=== PATIENT | female | born 1930 | race Caucasian/White ===

== ENCOUNTER 2017-07-16 16:26 | Inpatient (IN) | payer MEDICARE ==
[~2017-07-16] VITALS: Ht 167.6 cm; Wt 66.7 kg
[~2017-07-16 16:26] MED LIST: ACET325T9 PO; ACET500T68 PO; ALBU2.5V14 NEB; ALPR0.254 PO; ALPR0.5T6 PO; AMLO10TA2 PO; BISA10SU55 RC; BUSP10TA PO; CHOL10003 PO; DIVA125C PO; DOCU100C28 PO; LORA0.5T96 PO; LORA2VIA4 IM; MAG30ORA2 PO; MAGN400O7 PO; METH29OI TP; POTA10TA10 PO; QUET25TA5 PO; RIVA1PAT23 TD; TRAM50TA PO
--- NOTE | 2017-07-16 17:12 | ED.ADGEN ---
Past History Past Medical History: Anxiety, Dementia, Hypertension, Other (HUANG PICHARDO DO) Past Surgical History: No Surgical History (HUANG PICHARDO DO) Alcohol Use: None Drug Use: None (HUANG PICHARDO DO) Adult General Chief Complaint Chief Complaint Medical screening for psychiatric admission (HUANG PICHARDO DO) HPI HPI Patient is a 87-year-old [facility] patient with history of dementia and anxiety who presents for medical screening for psychiatric admission. Patient reportedly has had increased agitation towards staff members and residence has been uncooperative. patient's alert and oriented to person but is otherwise confused. She is a poor historian. Of note, patient does have bruising to her extremities and torso. I asked patient if she hit her head if she has headache or neck pain, which she denies. It is doubtful that the patient's answers are accurate. Patient denies any chest pain shortness of breath, cough. Denies any pain complaint. History is limited due to heightened agitation of the patient prior to ED arrival.[] (HUANG PICHARDO DO) Review of Systems Review of Systems View of systems unable to obtain secondary to presentation] All other systems were reviewed and found to be within normal limits, except as documented in this note. (HUANG PICHARDO DO) Current Medications Current Medications Current Medications Medications (Trade) Dose Ordered Sig/Analia Start Time Stop Time Status Last Admin Dose Admin Haloperidol Lactate (Haldol) 5 mg 1X ONCE 07/16/17 18:00 07/16/17 18:10 DC 07/16/17 18:00 5 MG (DINA LOYA DO) Allergies Allergies Allergies Coded Allergies Type Severity Reaction Last Updated Verified amoxicillin Allergy Intermediate 04/27/15 Yes (DINA LOYA DO) Physical Exam Physical Exam Constitutional: Well developed, well nourished, agitated. [] HENT: Normocephalic, atraumatic, bilateral external ears normal, oropharynx mucous membranes, no oral exudates, nose normal. [] Eyes: PERRLA, EOMI. [] Neck: Normal range of motion, no tenderness. [] Cardiovascular:Heart rate regular rhythm, no murmur [] Lungs & Thorax: Bilateral breath sounds clear to auscultation [] Abdomen: Bowel sounds normal, soft, no tenderness, no masses, no pulsatile masses. [] Skin: Warm, dry, no erythema, no rash. [] Back: No tenderness, no CVA tenderness. [] Extremities: no gross deformities. active range of motion through major joints without limitation due to pain [] Neurologic: Alert and oriented X 1, nerves II through XII grossly intact, no focal extremity weakness loss of sensation. Operation on exam. [] Psychologic: Affect, anxious[] (HUANG PICHARDO DO) Current Patient Data Vital Signs Vital Signs Date Time Temp Pulse Resp B/P (MAP) Pulse Ox O2 Delivery O2 Flow Rate FiO2 07/16/17 18:25 90 18 129/66 (87) 98 Room Air 07/16/17 17:25 98.0 (DINA LOYA DO) Lab Results Laboratory Tests Test 07/16/17 16:25 07/16/17 17:30 Urine Collection Type U cath Urine Color Straw Urine Clarity Hazy Urine pH 8.0 Urine Specific [place] 1.015 Urine Protein Neg (NEG-TRACE) Urine Glucose (UA) Neg mg/dL (NEG) Urine Ketones (Stick) Neg mg/dL (NEG) Urine Blood Neg (NEG) Urine Nitrite Neg (NEG) Urine Bilirubin Neg (NEG) Urine Urobilinogen Dipstick 1 mg/dL (0.2 mg/dL) Urine Leukocyte Esterase Neg (NEG) Urine RBC 1-2 /HPF (0-2) Urine WBC Occ /HPF (0-4) Urine Squamous Epithelial Cells Few /LPF Urine Amorphous Sediment Present /HPF Urine Bacteria 0 /HPF (0-FEW) White Blood Count 6.0 x10^3/uL (4.0-11.0) Red Blood Count 4.52 x10^6/uL (3.50-5.40) Hemoglobin 13.3 g/dL (12.0-15.5) Hematocrit 39.3 % (36.0-47.0) Mean Corpuscular Volume 87 fL (79-100) Mean Corpuscular Hemoglobin 29 pg (25-35) Mean Corpuscular Hemoglobin Concent 34 g/dL (31-37) Red Cell Distribution Width 14.1 % (11.5-14.5) Platelet Count 174 x10^3/uL (140-400) Neutrophils (%) (Auto) 54 % (31-73) Lymphocytes (%) (Auto) 31 % (24-48) Monocytes (%) (Auto) 11 % (0-9) H Eosinophils (%) (Auto) 3 % (0-3) Basophils (%) (Auto) 1 % (0-3) Neutrophils # (Auto) 3.2 x10^3uL (1.8-7.7) Lymphocytes # (Auto) 1.9 x10^3/uL (1.0-4.8) Monocytes # (Auto) 0.7 x10^3/uL (0.0-1.1) Eosinophils # (Auto) 0.2 x10^3/uL (0.0-0.7) Basophils # (Auto) 0.0 x10^3/uL (0.0-0.2) Sodium Level 142 mmol/L (136-145) Potassium Level 3.7 mmol/L (3.5-5.1) Chloride Level 110 mmol/L (98-107) H Carbon Dioxide Level 19 mmol/L (21-32) L Anion Gap 13 (6-14) Blood Urea Nitrogen 28 mg/dL (7-20) H Creatinine 1.6 mg/dL (0.6-1.0) H Estimated GFR (Cockcroft-Gault) 30.6 BUN/Creatinine Ratio 18 (6-20) Glucose Level 106 mg/dL (70-99) H Calcium Level 8.8 mg/dL (8.5-10.1) Total Bilirubin 0.3 mg/dL (0.2-1.0) Aspartate Amino Transferase (AST) 16 U/L (15-37) Alanine Aminotransferase (ALT) 30 U/L (14-59) Alkaline Phosphatase 93 U/L (46-116) Total Protein 6.7 g/dL (6.4-8.2) Albumin 2.9 g/dL (3.4-5.0) L Albumin/Globulin Ratio 0.8 (1.0-1.7) L (DINA LYOA DO) Lab Results Laboratory Tests Test 07/16/17 16:25 Urine Collection Type U cath Urine Color Straw Urine Clarity Hazy Urine pH 8.0 Urine Specific [place] 1.015 Urine Protein Neg (NEG-TRACE) Urine Glucose (UA) Neg mg/dL (NEG) Urine Ketones (Stick) Neg mg/dL (NEG) Urine Blood Neg (NEG) Urine Nitrite Neg (NEG) Urine Bilirubin Neg (NEG) Urine Urobilinogen Dipstick 1 mg/dL (0.2 mg/dL) Urine Leukocyte Esterase Neg (NEG) Urine RBC 1-2 /HPF (0-2) Urine WBC Occ /HPF (0-4) Urine Squamous Epithelial Cells Few /LPF Urine Amorphous Sediment Present /HPF Urine Bacteria 0 /HPF (0-FEW) (HUANG PICHARDO DO) EKG EKG EKG: Normal sinus, rate 60, QTC 436. ST depressions in with T-wave inversions in leads V3 through V6. No reciprocal changes. Interpretation by this physician. [] (HUANG PICHARDO DO) Radiology/Procedures Radiology/Procedures CT head: Pending[] (HUANG PICHARDO DO) Radiology/Procedures Chest x-ray NAD CT scan of the head no intracranial hemorrhage (DINA LOYA DO) Course & Med Decision Making Course & Med Decision Making Pertinent Labs and Imaging studies reviewed. (See chart for details) [Workup in progress. Care endorsed to [facility] at 1804 disposition and] (HUANG PICHARDO DO) Course & Med Decision Making ED course: Patient was initially seen by Dr. Pichardo in which basic blood work was ordered for [facility] medical clearance Patient is extremely combative and altered requiring Haldol in order to obtain a CT scan of the head to rule out any intracranial bleed On reevaluation the patient is resting calmly in the bed and after reviewing the blood work and CT scan of the head I believe the patient is cleared for [facility]. MDM: After reviewing the chart, CC/HPI/PMH, physical exam, [lab results], [ radiological results], I do not believe the patient has emergent medical condition warranting further workup and/or admission at this time. I believe the patient is stable to transfer to [facility] for further psychiatric evaluation. (DINA LOYA DO) Final Impression Final Impression [] Problems: (HUANG PICHARDO DO) Final Impression 1. Combative 2. Dementia Problems: (DINA LOYA DO) Dragon Disclaimer Dragon Disclaimer This electronic medical record was generated, in whole or in part, using a voice recognition dictation system. (HUANG PICHARDO DO) HUANG PICHARDO DO Jul 16, 2017 17:12 DINA LOYA DO Jul 16, 2017 20:19
[2017-07-16] MEDS ORDERED: HALOPERIDOL LACT 5 MG/ML VIAL. IM ONE ×2 (17:15→18:00)
--- NOTE | 2017-07-16 17:51 | EKG ---
[address] [address] Test Date: 2017-07-16 Test Time: 17:32:13 Pat Name: FELI FARRIS Department: Room: Gender: F Manager Scheduling: JOSIE : 1930 Requested By: HUANG TINOCO Order Number: [id number] Reading MD: Jose Ramon Garay Measurements Intervals Archie Rate: 60 P: 59 SC: 202 QRS: -61 QRSD: 92 T: 128 QT: 436 QTc: 436 Interpretive Statements SINUS RHYTHM POSSIBLE LATERAL WALL ISCHEMIA Electronically Signed On 07-29-2017 16:06:47 CDT by Jose Ramon Garay
[2017-07-16 17:55] LABS: BILIRUBIN,URINE NEG (NEG); CLARITY,URINE HAZY; COLOR,URINE STRAW; GLUCOSE,URINE NEG (NEG); NITRITE,URINE NEG (NEG); UROBILINOGEN,URINE 1 mg/dL (0.2 mg/dL)
[2017-07-16 17:56] LABS: BACTERIA,URINE 0 /HPF (0-FEW); SQUAMOUS EPITHELIAL CELL,UR FEW /LPF; WBC,URINE OCC /HPF (0-4)
[2017-07-16 17:57] LABS: AMORPHOUS SEDIMENT,UR PRESENT /HPF
[2017-07-16 18:14] LABS: BASO % 1 % (0-3); EOS # 0.2 x10^3/uL (0.0-0.7); EOS % 3 % (0-3); HEMATOCRIT 39.3 % (36.0-47.0); HEMOGLOBIN 13.3 g/dL (12.0-15.5); LYMPH # 1.9 x10^3/uL (1.0-4.8); LYMPH % 31 % (24-48); MEAN CORPUSCULAR HEMOGLOBIN 29 pg (25-35); MEAN CORPUSCULAR HGB CONC 34 g/dL (31-37); MEAN CORPUSCULAR VOLUME 87 fL (79-100); MONO # 0.7 x10^3/uL (0.0-1.1); MONO % 11 % (0-9); NEUT # 3.2 x10^3uL (1.8-7.7); NEUT % 54 % (31-73); PLATELET COUNT 174 x10^3/uL (140-400); RED BLOOD COUNT 4.52 x10^6/uL (3.50-5.40); RED CELL DISTRIBUTION WIDTH 14.1 % (11.5-14.5)
[2017-07-16 18:24] LABS: ALBUMIN 2.9 g/dL (3.4-5.0); ALBUMIN/GLOBULIN RATIO 0.8 (1.0-1.7); CALCIUM 8.8 mg/dL (8.5-10.1); CREATININE 1.6 mg/dL (0.6-1.0); GFR 30.6; POTASSIUM 3.7 mmol/L (3.5-5.1); TOTAL BILIRUBIN 0.3 mg/dL (0.2-1.0); TOTAL PROTEIN 6.7 g/dL (6.4-8.2)
--- NOTE | 2017-07-16 19:14 | RAD ---
PQRS Compliance Statement: One or more of the following individualized dose reduction techniques were utilized for this examination: 1. Automated exposure control 2. Adjustment of the mA and/or kV according to patient size 3. Use of iterative reconstruction technique CT HEAD WITHOUT CONTRAST History: ALTERED MENTAL STATUS, SEVERAL FALLS, SEVERAL CONTUSIONS ON HEAD Comparison: None. Technique: Axial images are obtained of the head from the skull base through the vertex without IV contrast. Findings: No mass-effect, midline shift, extra-axial fluid collection, hemorrhage, or obvious acute infarction is identified. Basilar cisterns are patent. The ventricles and sulci are prominent, consistent with age-related cerebral atrophy. There is periventricular and subcortical white matter hypoattenuation. This is a nonspecific finding but is commonly due to chronic small vessel ischemic disease. 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 Bone windows demonstrate no acute calvarial abnormality. There is mild right frontal scalp hematoma. The visualized paranasal sinuses are clear. Mastoid air cells are well aerated. IMPRESSION: 1. No acute intracranial abnormality. 2. Age-related cerebral atrophy and periventricular and subcortical white matter changes of chronic small vessel ischemic disease. 3. Mild right frontal scalp hematoma. Electronically signed by: Mejia Yepez MD (07/16/2017 7:11 PM) [facility]
[2017-07-16] MEDS ORDERED: METHYL SALICYLATE/MENTHOL TOPICAL OINTMENT 29GM TUBE. TP PRN (21:15)
[2017-07-16] MEDS ORDERED: MAG HYDROX/AL HYDROX/SIMETH 30 ML ORAL.SUSP PO PRN ×2 (21:15→23:15)
--- NOTE | 2017-07-16 21:18 | PDOC ---
Exam Note: Hiram Note: Please also refer to the separate dictated note~for this date of service dictated separately.~Patient seen individually. Discussed the patient with Nursing staff reviewed the chart.~Reviewed interim history and current functioning. Reviewed vital signs,~Labs/ Radiology~and current medications noted below. Continue current treatment with the changes noted in the dictated addendum note Assessment: Vital Signs: Vital Signs Date Time Temp Pulse Resp B/P (MAP) Pulse Ox O2 Delivery O2 Flow Rate FiO2 07/16/17 18:25 90 18 129/66 (87) 98 Room Air 07/16/17 17:25 98.0 Labs: Laboratory Tests Test 07/16/17 16:25 07/16/17 17:30 Urine Collection Type U cath Urine Color Straw Urine Clarity Hazy Urine pH 8.0 Urine Specific [place] 1.015 Urine Protein Neg (NEG-TRACE) Urine Glucose (UA) Neg mg/dL (NEG) Urine Ketones (Stick) Neg mg/dL (NEG) Urine Blood Neg (NEG) Urine Nitrite Neg (NEG) Urine Bilirubin Neg (NEG) Urine Urobilinogen Dipstick 1 mg/dL (0.2 mg/dL) Urine Leukocyte Esterase Neg (NEG) Urine RBC 1-2 /HPF (0-2) Urine WBC Occ /HPF (0-4) Urine Squamous Epithelial Cells Few /LPF Urine Amorphous Sediment Present /HPF Urine Bacteria 0 /HPF (0-FEW) White Blood Count 6.0 x10^3/uL (4.0-11.0) Red Blood Count 4.52 x10^6/uL (3.50-5.40) Hemoglobin 13.3 g/dL (12.0-15.5) Hematocrit 39.3 % (36.0-47.0) Mean Corpuscular Volume 87 fL (79-100) Mean Corpuscular Hemoglobin 29 pg (25-35) Mean Corpuscular Hemoglobin Concent 34 g/dL (31-37) Red Cell Distribution Width 14.1 % (11.5-14.5) Platelet Count 174 x10^3/uL (140-400) Neutrophils (%) (Auto) 54 % (31-73) Lymphocytes (%) (Auto) 31 % (24-48) Monocytes (%) (Auto) 11 % (0-9) H Eosinophils (%) (Auto) 3 % (0-3) Basophils (%) (Auto) 1 % (0-3) Neutrophils # (Auto) 3.2 x10^3uL (1.8-7.7) Lymphocytes # (Auto) 1.9 x10^3/uL (1.0-4.8) Monocytes # (Auto) 0.7 x10^3/uL (0.0-1.1) Eosinophils # (Auto) 0.2 x10^3/uL (0.0-0.7) Basophils # (Auto) 0.0 x10^3/uL (0.0-0.2) Sodium Level 142 mmol/L (136-145) Potassium Level 3.7 mmol/L (3.5-5.1) Chloride Level 110 mmol/L (98-107) H Carbon Dioxide Level 19 mmol/L (21-32) L Anion Gap 13 (6-14) Blood Urea Nitrogen 28 mg/dL (7-20) H Creatinine 1.6 mg/dL (0.6-1.0) H Estimated GFR (Cockcroft-Gault) 30.6 BUN/Creatinine Ratio 18 (6-20) Glucose Level 106 mg/dL (70-99) H Calcium Level 8.8 mg/dL (8.5-10.1) Total Bilirubin 0.3 mg/dL (0.2-1.0) Aspartate Amino Transferase (AST) 16 U/L (15-37) Alanine Aminotransferase (ALT) 30 U/L (14-59) Alkaline Phosphatase 93 U/L (46-116) Total Protein 6.7 g/dL (6.4-8.2) Albumin 2.9 g/dL (3.4-5.0) L Albumin/Globulin Ratio 0.8 (1.0-1.7) L Current Medications: Meds: Current Medications Haloperidol Lactate (Haldol) 2.5 mg 1X ONCE IM Last administered on 07/16/17at 17:15; Start 07/16/17 at 17:15; Stop 07/16/17 at 17:16; Status DC Haloperidol Lactate (Haldol) 5 mg 1X ONCE IM Last administered on 07/16/17at 18 :00; Start 07/16/17 at 18:00; Stop 07/16/17 at 18:10; Status DC Acetaminophen (Tylenol) 650 mg PRN Q6HRS PRN PO PAIN / TEMP; Start 07/16/17 at 21:15; Status UNV Multi-Ingredient Ointment (Analgesic [place]) 1 kalee PRN QID PRN TP MUSCLE PAIN; Start 07/16/17 at 21:15; Status UNV Al Hydroxide/Mg Hydroxide (Mylanta Plus Xs) 15 ml PRN AFTMEALHC PRN PO DYSPEPSIA; Start 07/16/17 at 21:15; Status UNV Magnesium Hydroxide (Milk Of Magnesia) 2,400 mg PRN QHS PRN PO CONSTIPATION; Start 07/16/17 at 21:15; Status UNV Active Scripts Active Reported Albuterol Sulfate Conc Neb Soln (Albuterol Sulfate) 2.5 Mg/0.5 Ml Vial.neb 1 Vial NEB PRN Q4HRS PRN Analgesic [place] (Methyl Salicylate/Menthol) 29 Gm Oint...g. 1 Kalee TP PRN QID PRN Milk Of Magnesia (Magnesium Hydroxide) 400 Mg/5 Ml Oral.susp 2,400 Mg PO PRN QHS PRN Mag-Al Plus Xs Suspension (Mag Hydrox/Al Hydrox/Simeth) 30 Ml Oral.susp 15 Ml PO PRN AFTMEALHC PRN Depakote Sprinkle (Divalproex Sodium) 125 Mg Cap.sprink 125 Mg PO BID Vitamin D3 (Cholecalciferol (Vitamin D3)) 1,000 Unit Tablet 2,000 Unit PO DAILY Tylenol (Acetaminophen) 325 Mg Tablet 650 Mg PO PRN Q6HRS PRN Seroquel (Quetiapine Fumarate) 25 Mg Tablet 12.5 Mg PO QID Buspirone Hcl 10 Mg Tablet 10 Mg PO TID Tramadol Hcl (Tramadol HCl) 50 Mg Tablet 50 Mg PO PRN Q6HRS PRN Alprazolam 0.25 Mg Tablet 0.25 Mg PO PRN Q8HRS PRN Alprazolam 0.25 Mg Tablet 0.25 Mg PO BID EXELON 9.5mg/24hr (Rivastigmine) 1 Each Patch.td24 1 Patch TD DAILY Dulcolax (Bisacodyl) 10 Mg Supp.rect 10 Mg RC PRN DAILY PRN Docusate Sodium 100 Mg Capsule 100 Mg PO QHS Potassium Chloride 10 Meq Tablet.er 10 Meq PO TID Amlodipine Besylate 10 Mg Tablet 10 Mg PO DAILY Hold for SBP less than 100. After a held dose, reassess in 2 hours. If SBP is above threshold administer dose as ordered. If SBP is less than threshold, contact provicer for additional instruction. I have reviewed the current psychotropics carefully including drug interactions. Risk benefit ratio favors no change other than as noted in my dictated progress note. Diagnosis: Problems: (1) Urinary tract infection (2) Dementia with behavioral disturbance SHASHI CRAVEN MD Jul 16, 2017 21:18
[2017-07-16 21:47] LABS: VAL ACID 35 mcg/mL (50-100)
[2017-07-16] MEDS ORDERED: DIVA125C PO (23:07)
[2017-07-16] MEDS ORDERED: POLY119P19 PO (23:08)
[2017-07-16] MEDS ORDERED: PRED1DRO OS (23:08)
[2017-07-16] MEDS ORDERED: DORZ10DR26 LEFTEYE (23:08)
[2017-07-16] MEDS ORDERED: LATA2.5D2 LEFTEYE (23:08)
[2017-07-16] MEDS ORDERED: METO-239 PO (23:08)
[2017-07-16] MEDS ORDERED: LORA2ORA8 PO (23:08)
[2017-07-16] MEDS ORDERED: MAGNESIUM HYDROXIDE 2,400 MG/30 ML ORAL.SUSP. PO PRN (23:15)
[2017-07-16] MEDS ORDERED: ACETAMINOPHEN 325 MG TABLET PO PRN (23:15)
[2017-07-17 05:51] VITALS: BP 169/62
--- NOTE | 2017-07-17 07:57 | RAD ---
Indication: Altered mental status. Technique: AP upright portable chest radiograph was obtained. Comparison is not available. Findings: The lungs are clear. Heart size is upper limits of normal. There is no heart failure. There is atheromatous disease in the thoracic aorta. There are degenerative changes in the shoulders. Impression: No acute thoracic findings.
[2017-07-17 07:58] LABS: VAL ACID 25 mcg/mL (50-100)
[2017-07-17] MEDS: POLYETHYLENE GLYCOL 3350 17 GM PACKET. PO SCH (09:52)
[2017-07-17] MEDS: DIVALPROEX 125 MG CAP.SPRINK PO SCH ×2 (09:52→20:15)
[2017-07-17] MEDS: QUEtiapine 25 MG TABLET. PO SCH ×2 (09:53→20:13)
[2017-07-17] MEDS: prednisoLONE ACETATE 1% OPHTH SUSPENSION 5ML BOTTLE. OS SCH ×4 (09:58→22:05)
[2017-07-17] MEDS: DORZOLAMIDE 2% OPHTH SOLUTION 10ML BOTTLE. OS SCH ×2 (09:58→22:05)
[2017-07-17] MEDS: METOPROLOL SUCC 24HR ER 25 MG TAB.ER.24H. PO SCH (09:58)
[2017-07-17] MEDS: LORazepam INTENSOL 2 MG/ML BOTTLE PO SCH (14:15)
[2017-07-17 14:28] LABS: THYROID STIM HORMONE (TSH) 1.115 uIU/mL (0.358-3.740)
[2017-07-17 16:18] VITALS: BP 144/71
--- NOTE | 2017-07-17 18:24 | PDOC ---
Exam Note: Hiram Note: Please also refer to the separate dictated note~for this date of service dictated separately.~Patient seen individually. Discussed the patient with Nursing staff reviewed the chart.~Reviewed interim history and current functioning. Reviewed vital signs,~Labs/ Radiology~and current medications noted below. Continue current treatment with the changes noted in the dictated addendum note Assessment: Vital Signs: Vital Signs Date Time Temp Pulse Resp B/P (MAP) Pulse Ox O2 Delivery O2 Flow Rate FiO2 07/17/17 16:18 97.3 60 12 144/71 (95) 98 Room Air I&O Intake and Output 07/17/17 07:00 # Voids 1 # Bowel Movements 1 Labs: Laboratory Tests Test 07/17/17 07:18 Valproic Acid Level 25 mcg/mL (50-100) L Valproic Acid Last Dose Date 07/16/2017 Valproic Acid Last Dose Time 0900 Current Medications: Meds: Current Medications Haloperidol Lactate (Haldol) 2.5 mg 1X ONCE IM Last administered on 07/16/17at 17:15; Start 07/16/17 at 17:15; Stop 07/16/17 at 17:16; Status DC Haloperidol Lactate (Haldol) 5 mg 1X ONCE IM Last administered on 07/16/17at 18 :00; Start 07/16/17 at 18:00; Stop 07/16/17 at 18:10; Status DC Acetaminophen (Tylenol) 650 mg PRN Q6HRS PRN PO PAIN / TEMP; Start 07/16/17 at 21:15 Multi-Ingredient Ointment (Analgesic [place]) 1 william PRN QID PRN TP MUSCLE PAIN; Start 07/16/17 at 21:15 Al Hydroxide/Mg Hydroxide (Mylanta Plus Xs) 15 ml PRN AFTMEALHC PRN PO DYSPEPSIA; Start 07/16/17 at 21:15 Magnesium Hydroxide (Milk Of Magnesia) 2,400 mg PRN QHS PRN PO CONSTIPATION; Start 07/16/17 at 21:15 Acetaminophen (Tylenol) 650 mg PRN Q6HRS PRN PO PAIN / TEMP; Start 07/16/17 at 23:15; Status UNV Dorzolamide HCl (Trusopt) 1 drop BID OS Last administered on 07/17/17at 09:58; Start 07/17/17 at 09:00 Latanoprost (Xalatan) 1 drop QHS OS ; Start 07/17/17 at 21:00 Al Hydroxide/Mg Hydroxide (Mylanta Plus Xs) 15 ml PRN AFTMEALHC PRN PO DYSPEPSIA; Start 07/16/17 at 23:15; Status UNV Magnesium Hydroxide (Milk Of Magnesia) 2,400 mg PRN QHS PRN PO CONSTIPATION; Start 07/16/17 at 23:15; Status UNV Metoprolol Succinate (Toprol Xl) 12.5 mg DAILY PO Last administered on at 09:58; Start 07/17/17 at 09:00 Polyethylene Glycol (miraLAX) 17 gm DAILY PO Last administered on 07/17/17at 09: 52; Start 07/17/17 at 09:00 Prednisolone Acetate (Pred Forte) 1 drop QID OS Last administered on 07/17/17at 17:59; Start 07/17/17 at 09:00 Divalproex Sodium (Depakote Sprinkles) 250 mg HS PO ; Start 07/17/17 at 21:00 Divalproex Sodium (Depakote Sprinkles) 500 mg DAILY PO Last administered on at 09:52; Start 07/17/17 at 09:00 Lorazepam (Ativan Intensol) 0.25 mg DAILY@1400 PO Last administered on at 14:15; Start 07/17/17 at 14:00 Quetiapine Fumarate (SEROquel) 12.5 mg BID PO Last administered on 07/17/17at 09 :53; Start 07/17/17 at 09:00 Active Scripts Active Reported Xalatan (Latanoprost) 2.5 Ml Drops 1 Drop LEFTEYE QHS Pred Forte (Prednisolone Acetate) 1 Ml Drops.susp 1 Drop OS QID Metoprolol Succinate ( Xl ) (Metoprolol Succinate) 25 Mg Tab.er.24h 12.5 Mg PO DAILY Lorazepam Intensol (Lorazepam) 2 Mg/1 Ml Oral.conc 0.25 Mg PO DAILY@1400 Glycolax (Polyethylene Glycol 3350) 119 Gm Powder 17 Gm PO DAILY Dorzolamide Hcl 10 Ml Drops 1 Drop LEFTEYE BID Depakote Sprinkle (Divalproex Sodium) 125 Mg Cap.sprink 250 Mg PO HS Milk Of Magnesia (Magnesium Hydroxide) 400 Mg/5 Ml Oral.susp 2,400 Mg PO PRN QHS PRN Mag-Al Plus Xs Suspension (Mag Hydrox/Al Hydrox/Simeth) 30 Ml Oral.susp 15 Ml PO PRN AFTMEALHC PRN Depakote Sprinkle (Divalproex Sodium) 125 Mg Cap.sprink 500 Mg PO DAILY Tylenol (Acetaminophen) 325 Mg Tablet 650 Mg PO PRN Q6HRS PRN Seroquel (Quetiapine Fumarate) 25 Mg Tablet 12.5 Mg PO BID I have reviewed the current psychotropics carefully including drug interactions. Risk benefit ratio favors no change other than as noted in my dictated progress note. Diagnosis: Problems: (1) Anxiety disorder (2) Dementia in Alzheimer's disease with delusions (3) Dementia in Alzheimer's disease with depression (4) Dementia, vascular, with delusions (5) Dementia, vascular, with depression (6) Impulse control disorder SHASHI CRAVEN MD Jul 17, 2017 18:24
--- NOTE | 2017-07-17 18:26 | PDOC ---
Exam Note: Hiram Note: Please also refer to the separate dictated note~for this date of service dictated separately.~Patient seen individually. Discussed the patient with Nursing staff reviewed the chart.~Reviewed interim history and current functioning. Reviewed vital signs,~Labs/ Radiology~and current medications noted below. Continue current treatment with the changes noted in the dictated addendum note Assessment: Vital Signs: Vital Signs Date Time Temp Pulse Resp B/P (MAP) Pulse Ox O2 Delivery O2 Flow Rate FiO2 07/17/17 16:18 97.3 60 12 144/71 (95) 98 Room Air I&O Intake and Output 07/17/17 07:00 # Voids 1 # Bowel Movements 1 Labs: Laboratory Tests Test 07/17/17 07:18 Valproic Acid Level 25 mcg/mL (50-100) L Valproic Acid Last Dose Date 07/16/2017 Valproic Acid Last Dose Time 0900 Current Medications: Meds: Current Medications Haloperidol Lactate (Haldol) 2.5 mg 1X ONCE IM Last administered on 07/16/17at 17:15; Start 07/16/17 at 17:15; Stop 07/16/17 at 17:16; Status DC Haloperidol Lactate (Haldol) 5 mg 1X ONCE IM Last administered on 07/16/17at 18 :00; Start 07/16/17 at 18:00; Stop 07/16/17 at 18:10; Status DC Acetaminophen (Tylenol) 650 mg PRN Q6HRS PRN PO PAIN / TEMP; Start 07/16/17 at 21:15 Multi-Ingredient Ointment (Analgesic [place]) 1 william PRN QID PRN TP MUSCLE PAIN; Start 07/16/17 at 21:15 Al Hydroxide/Mg Hydroxide (Mylanta Plus Xs) 15 ml PRN AFTMEALHC PRN PO DYSPEPSIA; Start 07/16/17 at 21:15 Magnesium Hydroxide (Milk Of Magnesia) 2,400 mg PRN QHS PRN PO CONSTIPATION; Start 07/16/17 at 21:15 Acetaminophen (Tylenol) 650 mg PRN Q6HRS PRN PO PAIN / TEMP; Start 07/16/17 at 23:15; Status UNV Dorzolamide HCl (Trusopt) 1 drop BID OS Last administered on 07/17/17at 09:58; Start 07/17/17 at 09:00 Latanoprost (Xalatan) 1 drop QHS OS ; Start 07/17/17 at 21:00 Al Hydroxide/Mg Hydroxide (Mylanta Plus Xs) 15 ml PRN AFTMEALHC PRN PO DYSPEPSIA; Start 07/16/17 at 23:15; Status UNV Magnesium Hydroxide (Milk Of Magnesia) 2,400 mg PRN QHS PRN PO CONSTIPATION; Start 07/16/17 at 23:15; Status UNV Metoprolol Succinate (Toprol Xl) 12.5 mg DAILY PO Last administered on at 09:58; Start 07/17/17 at 09:00 Polyethylene Glycol (miraLAX) 17 gm DAILY PO Last administered on 07/17/17at 09: 52; Start 07/17/17 at 09:00 Prednisolone Acetate (Pred Forte) 1 drop QID OS Last administered on 07/17/17at 17:59; Start 07/17/17 at 09:00 Divalproex Sodium (Depakote Sprinkles) 250 mg HS PO ; Start 07/17/17 at 21:00 Divalproex Sodium (Depakote Sprinkles) 500 mg DAILY PO Last administered on at 09:52; Start 07/17/17 at 09:00 Lorazepam (Ativan Intensol) 0.25 mg DAILY@1400 PO Last administered on at 14:15; Start 07/17/17 at 14:00 Quetiapine Fumarate (SEROquel) 12.5 mg BID PO Last administered on 07/17/17at 09 :53; Start 07/17/17 at 09:00 Active Scripts Active Reported Xalatan (Latanoprost) 2.5 Ml Drops 1 Drop LEFTEYE QHS Pred Forte (Prednisolone Acetate) 1 Ml Drops.susp 1 Drop OS QID Metoprolol Succinate ( Xl ) (Metoprolol Succinate) 25 Mg Tab.er.24h 12.5 Mg PO DAILY Lorazepam Intensol (Lorazepam) 2 Mg/1 Ml Oral.conc 0.25 Mg PO DAILY@1400 Glycolax (Polyethylene Glycol 3350) 119 Gm Powder 17 Gm PO DAILY Dorzolamide Hcl 10 Ml Drops 1 Drop LEFTEYE BID Depakote Sprinkle (Divalproex Sodium) 125 Mg Cap.sprink 250 Mg PO HS Milk Of Magnesia (Magnesium Hydroxide) 400 Mg/5 Ml Oral.susp 2,400 Mg PO PRN QHS PRN Mag-Al Plus Xs Suspension (Mag Hydrox/Al Hydrox/Simeth) 30 Ml Oral.susp 15 Ml PO PRN AFTMEALHC PRN Depakote Sprinkle (Divalproex Sodium) 125 Mg Cap.sprink 500 Mg PO DAILY Tylenol (Acetaminophen) 325 Mg Tablet 650 Mg PO PRN Q6HRS PRN Seroquel (Quetiapine Fumarate) 25 Mg Tablet 12.5 Mg PO BID I have reviewed the current psychotropics carefully including drug interactions. Risk benefit ratio favors no change other than as noted in my dictated progress note. 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
[2017-07-17 19:15] LABS: T3 TOTAL 81 ng/dL (71-180)
--- NOTE | 2017-07-17 19:52 | HP ---
ADMIT DATE: 07/16/2017 PSYCHIATRIC ADMISSION HISTORY/EVALUATION This is a note covers elements not covered in my initial note 07/17/2017. IDENTIFYING DATA: The patient is an 87-year-old female returns back to us from [facility], referred by primary care physician, Dr. Campa on account of increased agitation, anxiety, being combative, impulsive, refusing cares, hitting, biting at staff. She had failed outpatient psychiatric interventions resulting in this referral. She is extremely confused, demented, delusional, depressed. CHIEF COMPLAINT: "No." The patient is not very verbal and forthcoming quite confused. HISTORY OF PRESENT ILLNESS: The patient has a history of dementia, Alzheimer's vascular type. She has been residing at [facility] for sometime, but more recently is getting more confused and anxious, agitated with marked mood lability sleep and appetite changes. She has also appeared quite psychotic. No active suicidal or homicidal ideation. PAST PSYCHIATRIC HISTORY: As above. MEDICAL HISTORY: UA was negative in the ER. She has history of hypertension, osteoarthritis, chronic constipation, edema, obesity. She is in a wheelchair. DIET: Pureed thin liquids, meds crushed and pudding. CODE STATUS: DNR. ALLERGIES: AMOXIL. CURRENT PSYCHOTROPICS: Depakote Sprinkles 500 mg a.m. and 250 at 1700, Ativan 0.25 mg at noon, Seroquel 12.[address] of the head was negative. Chest x-ray negative. MENTAL STATUS EXAM: The patient is seen individually in the evening of 07/17/2017. She is oriented to herself. Insight, judgment, recent and remote memory, attention, concentration, fund of knowledge poor consistent with her diagnoses. She is quite distractible, not very verbal, not interactive. ASSETS: Stable living at the [facility]. REACTION TO HOSPITALIZATION: The patient oblivious of this. IMPRESSION: Major neurocognitive disorder, Alzheimer, vascular with depression, delusion, behavioral disturbance; anxiety disorder, unspecified; impulse control disorder, unspecified. Rest as above. PLAN: Admit to geropsychiatry unit at [facility]. I will see the patient daily individually from a psychiatric standpoint, medical followup per Dr. Minor/Dr. Mayer. Continue current psychotropics, observe baseline, check valproic acid level then adjust to reach therapeutic level. MAN April CRAVEN MD DR: MINGO/emmanuel JOB#: [id number] / [id number]
--- NOTE | 2017-07-17 21:03 | PDOC ---
Exam Note: Hiram Note: Please also refer to the separate dictated note~for this date of service dictated separately.~Patient seen individually. Discussed the patient with Nursing staff reviewed the chart.~Reviewed interim history and current functioning. Reviewed vital signs,~Labs/ Radiology~and current medications noted below. Continue current treatment with the changes noted in the dictated addendum note Assessment: Vital Signs: Vital Signs Date Time Temp Pulse Resp B/P (MAP) Pulse Ox O2 Delivery O2 Flow Rate FiO2 07/17/17 16:18 97.3 60 12 144/71 (95) 98 Room Air I&O Intake and Output 07/17/17 07:00 # Voids 1 # Bowel Movements 1 Labs: Laboratory Tests Test 07/17/17 07:18 Valproic Acid Level 25 mcg/mL (50-100) L Valproic Acid Last Dose Date 07/16/2017 Valproic Acid Last Dose Time 0900 Current Medications: Meds: Current Medications Haloperidol Lactate (Haldol) 2.5 mg 1X ONCE IM Last administered on 07/16/17at 17:15; Start 07/16/17 at 17:15; Stop 07/16/17 at 17:16; Status DC Haloperidol Lactate (Haldol) 5 mg 1X ONCE IM Last administered on 07/16/17at 18 :00; Start 07/16/17 at 18:00; Stop 07/16/17 at 18:10; Status DC Acetaminophen (Tylenol) 650 mg PRN Q6HRS PRN PO PAIN / TEMP; Start 07/16/17 at 21:15 Multi-Ingredient Ointment (Analgesic [place]) 1 william PRN QID PRN TP MUSCLE PAIN; Start 07/16/17 at 21:15 Al Hydroxide/Mg Hydroxide (Mylanta Plus Xs) 15 ml PRN AFTMEALHC PRN PO DYSPEPSIA; Start 07/16/17 at 21:15 Magnesium Hydroxide (Milk Of Magnesia) 2,400 mg PRN QHS PRN PO CONSTIPATION; Start 07/16/17 at 21:15 Acetaminophen (Tylenol) 650 mg PRN Q6HRS PRN PO PAIN / TEMP; Start 07/16/17 at 23:15; Status UNV Dorzolamide HCl (Trusopt) 1 drop BID OS Last administered on 07/17/17at 09:58; Start 07/17/17 at 09:00 Latanoprost (Xalatan) 1 drop QHS OS ; Start 07/17/17 at 21:00 Al Hydroxide/Mg Hydroxide (Mylanta Plus Xs) 15 ml PRN AFTMEALHC PRN PO DYSPEPSIA; Start 07/16/17 at 23:15; Status UNV Magnesium Hydroxide (Milk Of Magnesia) 2,400 mg PRN QHS PRN PO CONSTIPATION; Start 07/16/17 at 23:15; Status UNV Metoprolol Succinate (Toprol Xl) 12.5 mg DAILY PO Last administered on 09:58; Start 07/17/17 at 09:00 Polyethylene Glycol (miraLAX) 17 gm DAILY PO Last administered on 07/17/17at 09: 52; Start 07/17/17 at 09:00 Prednisolone Acetate (Pred Forte) 1 drop QID OS Last administered on 07/17/17at 17:59; Start 07/17/17 at 09:00 Divalproex Sodium (Depakote Sprinkles) 250 mg HS PO Last administered on at 20:15; Start 07/17/17 at 21:00 Divalproex Sodium (Depakote Sprinkles) 500 mg DAILY PO Last administered on 09:52; Start 07/17/17 at 09:00 Lorazepam (Ativan Intensol) 0.25 mg DAILY@1400 PO Last administered on at 14:15; Start 07/17/17 at 14:00 Quetiapine Fumarate (SEROquel) 12.5 mg BID PO Last administered on 07/17/17at 20 :13; Start 07/17/17 at 09:00 Active Scripts Active Reported Xalatan (Latanoprost) 2.5 Ml Drops 1 Drop LEFTEYE QHS Pred Forte (Prednisolone Acetate) 1 Ml Drops.susp 1 Drop OS QID Metoprolol Succinate ( Xl ) (Metoprolol Succinate) 25 Mg Tab.er.24h 12.5 Mg PO DAILY Lorazepam Intensol (Lorazepam) 2 Mg/1 Ml Oral.conc 0.25 Mg PO DAILY@1400 Glycolax (Polyethylene Glycol 3350) 119 Gm Powder 17 Gm PO DAILY Dorzolamide Hcl 10 Ml Drops 1 Drop LEFTEYE BID Depakote Sprinkle (Divalproex Sodium) 125 Mg Cap.sprink 250 Mg PO HS Milk Of Magnesia (Magnesium Hydroxide) 400 Mg/5 Ml Oral.susp 2,400 Mg PO PRN QHS PRN Mag-Al Plus Xs Suspension (Mag Hydrox/Al Hydrox/Simeth) 30 Ml Oral.susp 15 Ml PO PRN AFTMEALHC PRN Depakote Sprinkle (Divalproex Sodium) 125 Mg Cap.sprink 500 Mg PO DAILY Tylenol (Acetaminophen) 325 Mg Tablet 650 Mg PO PRN Q6HRS PRN Seroquel (Quetiapine Fumarate) 25 Mg Tablet 12.5 Mg PO BID I have reviewed the current psychotropics carefully including drug interactions. Risk benefit ratio favors no change other than as noted in my dictated progress note. Diagnosis: Problems: (1) Dementia with behavioral disturbance (2) Urinary tract infection (3) Anxiety disorder (4) Impulse control disorder (5) Dementia, vascular, with depression (6) Dementia, vascular, with delusions (7) Dementia in Alzheimer's disease with depression (8) Dementia in Alzheimer's disease with delusions SHASHI CRAVEN MD Jul 17, 2017 21:02
[2017-07-17] MEDS: LATANOPROST 0.005% OPHTH SOLUTION 2.5ML BOTTLE. OS SCH (22:05)
[2017-07-18 00:11] LABS: HEMOGLOBIN A1C 5.7 % (4.8-5.6)
[2017-07-18 05:57] VITALS: BP 133/78
[2017-07-18] MEDS: DIVALPROEX 125 MG CAP.SPRINK PO SCH ×2 (09:27→19:25)
[2017-07-18] MEDS: POLYETHYLENE GLYCOL 3350 17 GM PACKET. PO SCH (09:27)
[2017-07-18] MEDS: QUEtiapine 25 MG TABLET. PO SCH ×2 (09:27→19:25)
[2017-07-18] MEDS: METOPROLOL SUCC 24HR ER 25 MG TAB.ER.24H. PO SCH (09:27)
[2017-07-18] MEDS: prednisoLONE ACETATE 1% OPHTH SUSPENSION 5ML BOTTLE. OS SCH ×4 (09:28→19:25)
[2017-07-18] MEDS: DORZOLAMIDE 2% OPHTH SOLUTION 10ML BOTTLE. OS SCH ×2 (09:28→19:26)
--- NOTE | 2017-07-18 09:31 | CONS ---
DATE OF CONSULTATION: 07/17/2017 REASON FOR CONSULTATION: Medical management. HISTORY OF PRESENT ILLNESS: The patient is an 87-year-old female patient, a resident at [facility], was [facility] on account of increased anxiety, agitation, combativeness and impulsive, refusing cares, hitting, kicking and throwing herself on the floor. All these in a background of dementia with delusions and behavioral disorder and she is here for inpatient psychiatric stabilization. PAST MEDICAL HISTORY: Her past medical history significant for hypertension, osteoarthritis, insomnia, constipation, obesity. PAST PSYCHIATRIC HISTORY: Past psychiatric history is significant for dementia, anxiety, and insomnia. ALLERGIES: She is ALLERGIC TO AMOXICILLIN. MEDICATIONS: She is currently on Metoprolol Succinate 25 mg once a day, Tylenol 650 mg every 6 hours, ____ 500 mg daily in the morning and 250 mg at bedtime, quetiapine fumarate 12.5 mg twice a day, lorazepam 0.25 mg daily. She is on prednisolone 1 drop to both eyes 4 times a day, dorzolamide 1 drop to left eye twice a day, latanoprost for Xalatan one drop to left eye at bedtime. She is on Mylanta 15 mL after meals; magnesium hydroxide, Milk of Magnesia 30 mL p.o. daily p.r.n. for constipation; polyethylene glycol 17 grams daily p.r.n. for constipation. FAMILY HISTORY: Unobtainable. SOCIAL HISTORY: She is a resident at the [facility]. She does not smoke, drink alcohol, or use any recreational drugs. REVIEW OF SYSTEMS: Unobtainable. PHYSICAL EXAMINATION: GENERAL: When I examined her this afternoon, she was sitting in her Broda chair, in no apparent respiratory distress. She was pale, but no jaundice, cyanosis, or thyromegaly. No jugular venous distension. No limb edema. VITAL SIGNS: Her heart rate was 60, blood pressure was 144/71, temperature was 97.3, respiratory rate 12, and oxygen saturation was 98%. HEAD, EYES, NOSE AND THROAT: Showed normocephalic, atraumatic. She has some fading bruises around her right eye. NECK: Supple. HEART: Showed normal first and second heart sounds with no gallop, rub or murmur. CHEST: Clear to auscultation. No crepitation or rhonchi. ABDOMEN: Distended, soft, nontender. No guarding, rigidity, no organomegaly. Her hernial orifice was intact. Bowel sounds normal. NEUROLOGIC: She was demented without any obvious lateralizing signs. Cranial nerves were intact. She was demented without difficulty, although she is mostly bedbound, wheelchair bound. She can actually walk with a walker. LABORATORY AND DIAGNOSTIC DATA: Her lab work showed that her serum sodium was 142, potassium 3.7, chloride 110, bicarbonate 19, anion gap of 213, BUN 28, creatinine 1.6, estimated GFR was 30 mL per minute. Her glucose 106, calcium was 8.8, magnesium 2.1. Serum iron 36, TIBC was 244, and percent saturation was 15%. Her total bilirubin, AST, ALT, alkaline phosphatase were normal. Her serum triglyceride was 140. Total cholesterol was 186, LDL cholesterol 122, VLDL 28, HDL was 36 and the ratio was 5. Her TSH was 1.115. Vitamin B12 was 407 pg/mL, and 25-hydroxy vitamin D was 15.5. Her white cell count was 6000, hemoglobin 13, hematocrit 39, MCV 87, and platelet count of 174,000. Her urinalysis showed the urine was straw colored, hazy with the pH of 8, specific gravity 1.015. The urine was negative for protein, glucose, ketones, blood nitrite and bilirubin was negative also for leukocyte esterase. There were 1-2 RBCS, occasional WBCs, no bacteria and her urine toxicology screen showed her valproic acid was 35 mcg per ml. Her CT scan of the head showed that there is no acute intracranial abnormality, age-related cerebral atrophy, and periventricular and subcortical white matter changes of chronic small vessel ischemic disease, mild right frontal scalp hematoma. Her chest x-ray showed no acute thoracic finding. ASSESSMENT AND PLAN: So, in summary, this is an 87-year-old female patient who was admitted on account of increased anxiety, agitation, combativeness, impulsiveness, refusing care, hitting, fighting, throwing herself on the floor, all these on a background of dementia with delusions and behavioral disturbance. Her vital signs seemed to be stable. Her labs showed that she has impaired kidney function, protein-calorie malnutrition with serum albumin is only 2.9 g/dL, has also vitamin D deficiency. I will start her on cholecalciferol. She is not on any nephrotoxic medication. We will monitor her labs closely. Thank you, Dr. Sue, for allowing me to participate. KRISTIE GARIBAY MD DR: NICHOLAS/emmanuel JOB#: [id number] / [id number]
[2017-07-18] MEDS: LORazepam INTENSOL 2 MG/ML BOTTLE PO SCH (14:35)
[2017-07-18 16:16] VITALS: BP 132/65
[2017-07-18] MEDS: LATANOPROST 0.005% OPHTH SOLUTION 2.5ML BOTTLE. OS SCH (19:25)
--- NOTE | 2017-07-18 20:53 | PDOC ---
Exam Note: Hiram Note: Please also refer to the separate dictated note~for this date of service dictated separately.~Patient seen individually. Discussed the patient with Nursing staff reviewed the chart.~Reviewed interim history and current functioning. Reviewed vital signs,~Labs/ Radiology~and current medications noted below. Continue current treatment with the changes noted in the dictated addendum note Assessment: Vital Signs: Vital Signs Date Time Temp Pulse Resp B/P (MAP) Pulse Ox O2 Delivery O2 Flow Rate FiO2 07/18/17 16:16 97.1 64 16 132/65 (87) 95 07/17/17 16:18 Room Air I&O Intake and Output 07/18/17 07:00 Intake Total 900 ml Balance 900 ml Intake Oral 900 ml Current Medications: Meds: Current Medications Haloperidol Lactate (Haldol) 2.5 mg 1X ONCE IM Last administered on 07/16/17at 17:15; Start 07/16/17 at 17:15; Stop 07/16/17 at 17:16; Status DC Haloperidol Lactate (Haldol) 5 mg 1X ONCE IM Last administered on 07/16/17at 18 :00; Start 07/16/17 at 18:00; Stop 07/16/17 at 18:10; Status DC Acetaminophen (Tylenol) 650 mg PRN Q6HRS PRN PO PAIN / TEMP; Start 07/16/17 at 21:15 Multi-Ingredient Ointment (Analgesic [place]) 1 william PRN QID PRN TP MUSCLE PAIN; Start 07/16/17 at 21:15 Al Hydroxide/Mg Hydroxide (Mylanta Plus Xs) 15 ml PRN AFTMEALHC PRN PO DYSPEPSIA; Start 07/16/17 at 21:15 Magnesium Hydroxide (Milk Of Magnesia) 2,400 mg PRN QHS PRN PO CONSTIPATION; Start 07/16/17 at 21:15 Acetaminophen (Tylenol) 650 mg PRN Q6HRS PRN PO PAIN / TEMP; Start 07/16/17 at 23:15; Status UNV Dorzolamide HCl (Trusopt) 1 drop BID OS Last administered on 07/18/17at 19:26; Start 07/17/17 at 09:00 Latanoprost (Xalatan) 1 drop QHS OS Last administered on 07/18/17at 19:25; Start 07/17/17 at 21:00 Al Hydroxide/Mg Hydroxide (Mylanta Plus Xs) 15 ml PRN AFTMEALHC PRN PO DYSPEPSIA; Start 07/16/17 at 23:15; Status UNV Magnesium Hydroxide (Milk Of Magnesia) 2,400 mg PRN QHS PRN PO CONSTIPATION; Start 07/16/17 at 23:15; Status UNV Metoprolol Succinate (Toprol Xl) 12.5 mg DAILY PO Last administered on 09:27; Start 07/17/17 at 09:00 Polyethylene Glycol (miraLAX) 17 gm DAILY PO Last administered on 07/18/17 09: 27; Start 07/17/17 at 09:00 Prednisolone Acetate (Pred Forte) 1 drop QID OS Last administered on 07/18/17 19:25; Start 07/17/17 at 09:00 Divalproex Sodium (Depakote Sprinkles) 250 mg HS PO Last administered on 19:25; Start 07/17/17 at 21:00 Divalproex Sodium (Depakote Sprinkles) 500 mg DAILY PO Last administered on 09:27; Start 07/17/17 at 09:00 Lorazepam (Ativan Intensol) 0.25 mg DAILY@1400 PO Last administered on at 14:35; Start 07/17/17 at 14:00; Stop 07/18/17 at 18:16; Status DC Quetiapine Fumarate (SEROquel) 12.5 mg BID PO Last administered on 07/18/17 19 :25; Start 07/17/17 at 09:00 Active Scripts Active Reported Xalatan (Latanoprost) 2.5 Ml Drops 1 Drop LEFTEYE QHS Pred Forte (Prednisolone Acetate) 1 Ml Drops.susp 1 Drop OS QID Metoprolol Succinate ( Xl ) (Metoprolol Succinate) 25 Mg Tab.er.24h 12.5 Mg PO DAILY Lorazepam Intensol (Lorazepam) 2 Mg/1 Ml Oral.conc 0.25 Mg PO DAILY@1400 Glycolax (Polyethylene Glycol 3350) 119 Gm Powder 17 Gm PO DAILY Dorzolamide Hcl 10 Ml Drops 1 Drop LEFTEYE BID Depakote Sprinkle (Divalproex Sodium) 125 Mg Cap.sprink 250 Mg PO HS Milk Of Magnesia (Magnesium Hydroxide) 400 Mg/5 Ml Oral.susp 2,400 Mg PO PRN QHS PRN Mag-Al Plus Xs Suspension (Mag Hydrox/Al Hydrox/Simeth) 30 Ml Oral.susp 15 Ml PO PRN AFTMEALHC PRN Depakote Sprinkle (Divalproex Sodium) 125 Mg Cap.sprink 500 Mg PO DAILY Tylenol (Acetaminophen) 325 Mg Tablet 650 Mg PO PRN Q6HRS PRN Seroquel (Quetiapine Fumarate) 25 Mg Tablet 12.5 Mg PO BID I have reviewed the current psychotropics carefully including drug interactions. Risk benefit ratio favors no change other than as noted in my dictated progress note. Diagnosis: Problems: (1) Dementia with behavioral disturbance (2) Urinary tract infection (3) Anxiety disorder (4) Impulse control disorder (5) Dementia, vascular, with depression (6) Dementia, vascular, with delusions (7) Dementia in Alzheimer's disease with depression (8) Dementia in Alzheimer's disease with delusions SHASHI CRAVEN MD Jul 18, 2017 20:53
[2017-07-19] MEDS: MAGNESIUM HYDROXIDE 2,400 MG/30 ML ORAL.SUSP. PO PRN (00:01)
[2017-07-19 05:56] VITALS: BP 131/60
[2017-07-19] MEDS: POLYETHYLENE GLYCOL 3350 17 GM PACKET. PO SCH (07:49)
[2017-07-19] MEDS: QUEtiapine 25 MG TABLET. PO SCH ×2 (07:49→20:16)
[2017-07-19] MEDS: METOPROLOL SUCC 24HR ER 25 MG TAB.ER.24H. PO SCH (07:50)
[2017-07-19] MEDS: DIVALPROEX 125 MG CAP.SPRINK PO SCH ×2 (07:50→20:16)
[2017-07-19] MEDS: LATANOPROST 0.005% OPHTH SOLUTION 2.5ML BOTTLE. OS SCH (07:51)
[2017-07-19] MEDS: DORZOLAMIDE 2% OPHTH SOLUTION 10ML BOTTLE. OS SCH ×2 (07:51→21:34)
[2017-07-19] MEDS: prednisoLONE ACETATE 1% OPHTH SUSPENSION 5ML BOTTLE. OS SCH ×4 (07:52→21:34)
[2017-07-19 16:14] VITALS: BP 131/69
--- NOTE | 2017-07-19 22:37 | PDOC ---
Exam Note: Hiram Note: Please also refer to the separate dictated note~for this date of service dictated separately.~Patient seen individually. Discussed the patient with Nursing staff reviewed the chart.~Reviewed interim history and current functioning. Reviewed vital signs,~Labs/ Radiology~and current medications noted below. Continue current treatment with the changes noted in the dictated addendum note Assessment: Vital Signs: Vital Signs Date Time Temp Pulse Resp B/P (MAP) Pulse Ox O2 Delivery O2 Flow Rate FiO2 07/19/17 16:14 97.1 71 18 131/69 (89) 91 Room Air I&O Intake and Output 07/19/17 07:00 Intake Total 1080 ml Balance 1080 ml Intake Oral 1080 ml # Bowel Movements 1 Current Medications: Meds: Current Medications Haloperidol Lactate (Haldol) 2.5 mg 1X ONCE IM Last administered on 07/16/17at 17:15; Start 07/16/17 at 17:15; Stop 07/16/17 at 17:16; Status DC Haloperidol Lactate (Haldol) 5 mg 1X ONCE IM Last administered on 07/16/17at 18 :00; Start 07/16/17 at 18:00; Stop 07/16/17 at 18:10; Status DC Acetaminophen (Tylenol) 650 mg PRN Q6HRS PRN PO PAIN / TEMP; Start 07/16/17 at 21:15 Multi-Ingredient Ointment (Analgesic [place]) 1 william PRN QID PRN TP MUSCLE PAIN; Start 07/16/17 at 21:15 Al Hydroxide/Mg Hydroxide (Mylanta Plus Xs) 15 ml PRN AFTMEALHC PRN PO DYSPEPSIA; Start 07/16/17 at 21:15 Magnesium Hydroxide (Milk Of Magnesia) 2,400 mg PRN QHS PRN PO CONSTIPATION Last administered on 07/19/17at 00:01; Start 07/16/17 at 21:15 Acetaminophen (Tylenol) 650 mg PRN Q6HRS PRN PO PAIN / TEMP; Start 07/16/17 at 23:15; Status UNV Dorzolamide HCl (Trusopt) 1 drop BID OS Last administered on 07/19/17at 21:34; Start 07/17/17 at 09:00 Latanoprost (Xalatan) 1 drop QHS OS Last administered on 07/19/17at 07:51; Start 07/17/17 at 21:00 Al Hydroxide/Mg Hydroxide (Mylanta Plus Xs) 15 ml PRN AFTMEALHC PRN PO DYSPEPSIA; Start 07/16/17 at 23:15; Status UNV Magnesium Hydroxide (Milk Of Magnesia) 2,400 mg PRN QHS PRN PO CONSTIPATION; Start 07/16/17 at 23:15; Status UNV Metoprolol Succinate (Toprol Xl) 12.5 mg DAILY PO Last administered on at 07:50; Start 07/17/17 at 09:00 Polyethylene Glycol (miraLAX) 17 gm DAILY PO Last administered on 07/19/17at 07: 49; Start 07/17/17 at 09:00 Prednisolone Acetate (Pred Forte) 1 drop QID OS Last administered on 07/19/17at 21:34; Start 07/17/17 at 09:00 Divalproex Sodium (Depakote Sprinkles) 250 mg HS PO Last administered on at 19:25; Start 07/17/17 at 21:00; Stop 07/19/17 at 19:45; Status DC Divalproex Sodium (Depakote Sprinkles) 500 mg DAILY PO Last administered on at 07:50; Start 07/17/17 at 09:00 Lorazepam (Ativan Intensol) 0.25 mg DAILY@1400 PO Last administered on at 14:35; Start 07/17/17 at 14:00; Stop 07/18/17 at 18:16; Status DC Quetiapine Fumarate (SEROquel) 12.5 mg BID PO Last administered on 07/19/17at 20 :16; Start 07/17/17 at 09:00 Divalproex Sodium (Depakote Sprinkles) 500 mg HS PO Last administered on at 20:16; Start 07/19/17 at 21:00 Active Scripts Active Reported Xalatan (Latanoprost) 2.5 Ml Drops 1 Drop LEFTEYE QHS Pred Forte (Prednisolone Acetate) 1 Ml Drops.susp 1 Drop OS QID Metoprolol Succinate ( Xl ) (Metoprolol Succinate) 25 Mg Tab.er.24h 12.5 Mg PO DAILY Lorazepam Intensol (Lorazepam) 2 Mg/1 Ml Oral.conc 0.25 Mg PO DAILY@1400 Glycolax (Polyethylene Glycol 3350) 119 Gm Powder 17 Gm PO DAILY Dorzolamide Hcl 10 Ml Drops 1 Drop LEFTEYE BID Depakote Sprinkle (Divalproex Sodium) 125 Mg Cap.sprink 250 Mg PO HS Milk Of Magnesia (Magnesium Hydroxide) 400 Mg/5 Ml Oral.susp 2,400 Mg PO PRN QHS PRN Mag-Al Plus Xs Suspension (Mag Hydrox/Al Hydrox/Simeth) 30 Ml Oral.susp 15 Ml PO PRN AFTMEALHC PRN Depakote Sprinkle (Divalproex Sodium) 125 Mg Cap.sprink 500 Mg PO DAILY Tylenol (Acetaminophen) 325 Mg Tablet 650 Mg PO PRN Q6HRS PRN Seroquel (Quetiapine Fumarate) 25 Mg Tablet 12.5 Mg PO BID I have reviewed the current psychotropics carefully including drug interactions. Risk benefit ratio favors no change other than as noted in my dictated progress note. Diagnosis: Problems: (1) Dementia with behavioral disturbance (2) Anxiety disorder (3) Impulse control disorder (4) Dementia, vascular, with depression (5) Dementia, vascular, with delusions (6) Dementia in Alzheimer's disease with depression (7) Dementia in Alzheimer's disease with delusions SHASHI CRAVEN MD Jul 19, 2017 22:37
[2017-07-20 06:26] VITALS: BP 157/54
[2017-07-20] MEDS: DORZOLAMIDE 2% OPHTH SOLUTION 10ML BOTTLE. OS SCH ×2 (07:58→19:55)
[2017-07-20] MEDS: prednisoLONE ACETATE 1% OPHTH SUSPENSION 5ML BOTTLE. OS SCH ×4 (07:58→19:54)
[2017-07-20] MEDS: POLYETHYLENE GLYCOL 3350 17 GM PACKET. PO SCH (07:59)
[2017-07-20] MEDS: QUEtiapine 25 MG TABLET. PO SCH ×2 (08:00→19:54)
[2017-07-20] MEDS: METOPROLOL SUCC 24HR ER 25 MG TAB.ER.24H. PO SCH (08:00)
[2017-07-20] MEDS: DIVALPROEX 125 MG CAP.SPRINK PO SCH ×2 (08:00→19:53)
--- NOTE | 2017-07-20 10:23 | PN ---
DATE: 07/18/2017 PSYCHIATRIC PROGRESS NOTE This is a late entry 07/18/2017, covers elements not covered in my initial note 07/18/2017. SUBJECTIVE: I met with the patient the evening of 07/18/2017. The patient slept 5-1/2 hours previous evening, withdrawn, quiet, in a Broda chair. REVIEW OF SYSTEMS: No CV, , pulmonary, eye, ENT system symptoms on review. Reliability poor. MENTAL STATUS EXAM: Oriented to herself. Insight, judgment, recent and remote memory, attention, concentration, fund of knowledge poor, consistent with her diagnoses. IMPRESSION: Major neurocognitive disorder, Alzheimer, vascular with delusion, depression, behavioral disturbance. PLAN: Stop the scheduled Ativan 0.25 mg at noon. Continue Depakote and Seroquel at current dosage. MAN April CRAVEN MD DR: MINGO/emmanuel JOB#: [id number] / [id number]
[2017-07-20 15:43] VITALS: BP 155/70
[2017-07-20] MEDS: LATANOPROST 0.005% OPHTH SOLUTION 2.5ML BOTTLE. OS SCH (19:54)
--- NOTE | 2017-07-20 20:56 | PDOC ---
Exam Note: Hiram Note: Please also refer to the separate dictated note~for this date of service dictated separately.~Patient seen individually. Discussed the patient with Nursing staff reviewed the chart.~Reviewed interim history and current functioning. Reviewed vital signs,~Labs/ Radiology~and current medications noted below. Continue current treatment with the changes noted in the dictated addendum note Assessment: Vital Signs: Vital Signs Date Time Temp Pulse Resp B/P (MAP) Pulse Ox O2 Delivery O2 Flow Rate FiO2 07/20/17 15:43 97.8 58 18 155/70 (98) 96 07/20/17 06:26 Room Air I&O Intake and Output 07/20/17 07:00 Intake Total 1085 ml Balance 1085 ml Intake Oral 1085 ml # Voids 1 # Bowel Movements 1 Current Medications: Meds: Current Medications Haloperidol Lactate (Haldol) 2.5 mg 1X ONCE IM Last administered on 07/16/17at 17:15; Start 07/16/17 at 17:15; Stop 07/16/17 at 17:16; Status DC Haloperidol Lactate (Haldol) 5 mg 1X ONCE IM Last administered on 07/16/17at 18 :00; Start 07/16/17 at 18:00; Stop 07/16/17 at 18:10; Status DC Acetaminophen (Tylenol) 650 mg PRN Q6HRS PRN PO PAIN / TEMP; Start 07/16/17 at 21:15 Multi-Ingredient Ointment (Analgesic [place]) 1 william PRN QID PRN TP MUSCLE PAIN; Start 07/16/17 at 21:15 Al Hydroxide/Mg Hydroxide (Mylanta Plus Xs) 15 ml PRN AFTMEALHC PRN PO DYSPEPSIA; Start 07/16/17 at 21:15 Magnesium Hydroxide (Milk Of Magnesia) 2,400 mg PRN QHS PRN PO CONSTIPATION Last administered on 07/19/17at 00:01; Start 07/16/17 at 21:15 Acetaminophen (Tylenol) 650 mg PRN Q6HRS PRN PO PAIN / TEMP; Start 07/16/17 at 23:15; Status UNV Dorzolamide HCl (Trusopt) 1 drop BID OS Last administered on 07/20/17at 19:55; Start 07/17/17 at 09:00 Latanoprost (Xalatan) 1 drop QHS OS Last administered on 07/20/17 19:54; Start 07/17/17 at 21:00 Al Hydroxide/Mg Hydroxide (Mylanta Plus Xs) 15 ml PRN AFTMEALHC PRN PO DYSPEPSIA; Start 07/16/17 at 23:15; Status UNV Magnesium Hydroxide (Milk Of Magnesia) 2,400 mg PRN QHS PRN PO CONSTIPATION; Start 07/16/17 at 23:15; Status UNV Metoprolol Succinate (Toprol Xl) 12.5 mg DAILY PO Last administered on 08:00; Start 07/17/17 at 09:00 Polyethylene Glycol (miraLAX) 17 gm DAILY PO Last administered on 07/20/17 07: 59; Start 07/17/17 at 09:00 Prednisolone Acetate (Pred Forte) 1 drop QID OS Last administered on 07/20/17 19:54; Start 07/17/17 at 09:00 Divalproex Sodium (Depakote Sprinkles) 250 mg HS PO Last administered on 19:25; Start 07/17/17 at 21:00; Stop 07/19/17 at 19:45; Status DC Divalproex Sodium (Depakote Sprinkles) 500 mg DAILY PO Last administered on 08:00; Start 07/17/17 at 09:00 Lorazepam (Ativan Intensol) 0.25 mg DAILY@1400 PO Last administered on at 14:35; Start 07/17/17 at 14:00; Stop 07/18/17 at 18:16; Status DC Quetiapine Fumarate (SEROquel) 12.5 mg BID PO Last administered on 07/20/17 19 :54; Start 07/17/17 at 09:00 Divalproex Sodium (Depakote Sprinkles) 500 mg HS PO Last administered on 19:53; Start 07/19/17 at 21:00 Active Scripts Active Reported Xalatan (Latanoprost) 2.5 Ml Drops 1 Drop LEFTEYE QHS Pred Forte (Prednisolone Acetate) 1 Ml Drops.susp 1 Drop OS QID Metoprolol Succinate ( Xl ) (Metoprolol Succinate) 25 Mg Tab.er.24h 12.5 Mg PO DAILY Lorazepam Intensol (Lorazepam) 2 Mg/1 Ml Oral.conc 0.25 Mg PO DAILY@1400 Glycolax (Polyethylene Glycol 3350) 119 Gm Powder 17 Gm PO DAILY Dorzolamide Hcl 10 Ml Drops 1 Drop LEFTEYE BID Depakote Sprinkle (Divalproex Sodium) 125 Mg Cap.sprink 250 Mg PO HS Milk Of Magnesia (Magnesium Hydroxide) 400 Mg/5 Ml Oral.susp 2,400 Mg PO PRN QHS PRN Mag-Al Plus Xs Suspension (Mag Hydrox/Al Hydrox/Simeth) 30 Ml Oral.susp 15 Ml PO PRN AFTMEALHC PRN Depakote Sprinkle (Divalproex Sodium) 125 Mg Cap.sprink 500 Mg PO DAILY Tylenol (Acetaminophen) 325 Mg Tablet 650 Mg PO PRN Q6HRS PRN Seroquel (Quetiapine Fumarate) 25 Mg Tablet 12.5 Mg PO BID I have reviewed the current psychotropics carefully including drug interactions. Risk benefit ratio favors no change other than as noted in my dictated progress note. 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
[2017-07-21 06:37] VITALS: BP 164/74
[2017-07-21] MEDS: POLYETHYLENE GLYCOL 3350 17 GM PACKET. PO SCH (09:00)
[2017-07-21] MEDS: DIVALPROEX 125 MG CAP.SPRINK PO SCH ×2 (09:51→20:13)
[2017-07-21] MEDS: QUEtiapine 25 MG TABLET. PO SCH ×2 (09:51→20:13)
[2017-07-21] MEDS: METOPROLOL SUCC 24HR ER 25 MG TAB.ER.24H. PO SCH (09:52)
[2017-07-21] MEDS: prednisoLONE ACETATE 1% OPHTH SUSPENSION 5ML BOTTLE. OS SCH ×4 (09:53→20:16)
[2017-07-21] MEDS: DORZOLAMIDE 2% OPHTH SOLUTION 10ML BOTTLE. OS SCH ×2 (09:54→20:16)
[2017-07-21 16:20] VITALS: BP 112/85
[2017-07-21] MEDS: LATANOPROST 0.005% OPHTH SOLUTION 2.5ML BOTTLE. OS SCH (20:16)
--- NOTE | 2017-07-21 20:51 | PDOC ---
Exam Note: Hiram Note: Please also refer to the separate dictated note~for this date of service dictated separately.~Patient seen individually. Discussed the patient with Nursing staff reviewed the chart.~Reviewed interim history and current functioning. Reviewed vital signs,~Labs/ Radiology~and current medications noted below. Continue current treatment with the changes noted in the dictated addendum note Assessment: Vital Signs: Vital Signs Date Time Temp Pulse Resp B/P (MAP) Pulse Ox O2 Delivery O2 Flow Rate FiO2 07/21/17 16:20 97.8 63 22 112/85 (94) 98 07/21/17 06:37 Room Air I&O Intake and Output 07/21/17 07:00 Intake Total 1080 ml Balance 1080 ml Intake Oral 1080 ml # Voids 1 # Bowel Movements 1 Current Medications: Meds: Current Medications Haloperidol Lactate (Haldol) 2.5 mg 1X ONCE IM Last administered on 07/16/17at 17:15; Start 07/16/17 at 17:15; Stop 07/16/17 at 17:16; Status DC Haloperidol Lactate (Haldol) 5 mg 1X ONCE IM Last administered on 07/16/17at 18 :00; Start 07/16/17 at 18:00; Stop 07/16/17 at 18:10; Status DC Acetaminophen (Tylenol) 650 mg PRN Q6HRS PRN PO PAIN / TEMP; Start 07/16/17 at 21:15 Multi-Ingredient Ointment (Analgesic [place]) 1 william PRN QID PRN TP MUSCLE PAIN; Start 07/16/17 at 21:15 Al Hydroxide/Mg Hydroxide (Mylanta Plus Xs) 15 ml PRN AFTMEALHC PRN PO DYSPEPSIA; Start 07/16/17 at 21:15 Magnesium Hydroxide (Milk Of Magnesia) 2,400 mg PRN QHS PRN PO CONSTIPATION Last administered on 07/19/17at 00:01; Start 07/16/17 at 21:15 Acetaminophen (Tylenol) 650 mg PRN Q6HRS PRN PO PAIN / TEMP; Start 07/16/17 at 23:15; Status UNV Dorzolamide HCl (Trusopt) 1 drop BID OS Last administered on 07/21/17at 20:16; Start 07/17/17 at 09:00 Latanoprost (Xalatan) 1 drop QHS OS Last administered on 07/21/17 20:16; Start 07/17/17 at 21:00 Al Hydroxide/Mg Hydroxide (Mylanta Plus Xs) 15 ml PRN AFTMEALHC PRN PO DYSPEPSIA; Start 07/16/17 at 23:15; Status UNV Magnesium Hydroxide (Milk Of Magnesia) 2,400 mg PRN QHS PRN PO CONSTIPATION; Start 07/16/17 at 23:15; Status UNV Metoprolol Succinate (Toprol Xl) 12.5 mg DAILY PO Last administered on 09:52; Start 07/17/17 at 09:00 Polyethylene Glycol (miraLAX) 17 gm DAILY PO Last administered on 07/20/17 07: 59; Start 07/17/17 at 09:00 Prednisolone Acetate (Pred Forte) 1 drop QID OS Last administered on 07/21/17 20:16; Start 07/17/17 at 09:00 Divalproex Sodium (Depakote Sprinkles) 250 mg HS PO Last administered on 19:25; Start 07/17/17 at 21:00; Stop 07/19/17 at 19:45; Status DC Divalproex Sodium (Depakote Sprinkles) 500 mg DAILY PO Last administered on 09:51; Start 07/17/17 at 09:00 Lorazepam (Ativan Intensol) 0.25 mg DAILY@1400 PO Last administered on 14:35; Start 07/17/17 at 14:00; Stop 07/18/17 at 18:16; Status DC Quetiapine Fumarate (SEROquel) 12.5 mg BID PO Last administered on 07/21/17 20 :13; Start 07/17/17 at 09:00 Divalproex Sodium (Depakote Sprinkles) 500 mg HS PO Last administered on 20:13; Start 07/19/17 at 21:00 Olanzapine (ZyPREXA ZYDIS) 1.25 mg PRN Q2HR PRN PO PSYCHOSIS Last administered on 07/21/17 17:09; Start 07/20/17 at 22:45 Trazodone HCl (Desyrel) 50 mg PRN QHS PRN PO INSOMNIA, MAY REPEAT X1; Start at 22:45 Active Scripts Active Reported Xalatan (Latanoprost) 2.5 Ml Drops 1 Drop LEFTEYE QHS Pred Forte (Prednisolone Acetate) 1 Ml Drops.susp 1 Drop OS QID Metoprolol Succinate ( Xl ) (Metoprolol Succinate) 25 Mg Tab.er.24h 12.5 Mg PO DAILY Lorazepam Intensol (Lorazepam) 2 Mg/1 Ml Oral.conc 0.25 Mg PO DAILY@1400 Glycolax (Polyethylene Glycol 3350) 119 Gm Powder 17 Gm PO DAILY Dorzolamide Hcl 10 Ml Drops 1 Drop LEFTEYE BID Depakote Sprinkle (Divalproex Sodium) 125 Mg Cap.sprink 250 Mg PO HS Milk Of Magnesia (Magnesium Hydroxide) 400 Mg/5 Ml Oral.susp 2,400 Mg PO PRN QHS PRN Mag-Al Plus Xs Suspension (Mag Hydrox/Al Hydrox/Simeth) 30 Ml Oral.susp 15 Ml PO PRN AFTMEALHC PRN Depakote Sprinkle (Divalproex Sodium) 125 Mg Cap.sprink 500 Mg PO DAILY Tylenol (Acetaminophen) 325 Mg Tablet 650 Mg PO PRN Q6HRS PRN Seroquel (Quetiapine Fumarate) 25 Mg Tablet 12.5 Mg PO BID I have reviewed the current psychotropics carefully including drug interactions. Risk benefit ratio favors no change other than as noted in my dictated progress note. Diagnosis: Problems: (1) Dementia with behavioral disturbance (2) Urinary tract infection (3) Anxiety disorder (4) Impulse control disorder (5) Dementia, vascular, with depression (6) Dementia, vascular, with delusions (7) Dementia in Alzheimer's disease with depression (8) Dementia in Alzheimer's disease with delusions SHASHI CRAVEN MD Jul 21, 2017 20:51
--- NOTE | 2017-07-22 03:44 | PN ---
DATE: 07/19/2017 This is a late entry for 07/19/2017 and re-dictation requested by medical records. SUBJECTIVE: The patient seen in the evening of 07/19/2017. This note covers elements not covered in my initial note of 07/19/2017. The patient remains confused, resistive to medications, takes it in chocolate pudding. REVIEW OF SYSTEMS: Ambulation impaired, in wheelchair, Broda chair. No CV, , pulmonary, eye system symptoms on review. MENTAL STATUS EXAM: Oriented to herself. Insight, judgment, recent and remote memory, attention, concentration, fund of knowledge poor, consistent with her diagnosis. Valproic acid level low at 25. IMPRESSION: Unchanged from initial note. PLAN: Increase Depakote Sprinkles from 750 mg a day to 1000 mg a day. Check CBC, CMP, valproic acid level in 3 days. Continue rest unchanged. MAN April CRAVEN MD DR: MINGO/emmanuel JOB#: [id number] / [id number]
--- NOTE | 2017-07-22 03:46 | PN ---
DATE: 07/20/2017 This is a late entry of 07/20/2017 covers elements not covered in my initial note and is a re-dictation requested by medical records. SUBJECTIVE: The patient seen in the afternoon. She remains confused in a Broda chair. REVIEW OF SYSTEMS: No CV, , pulmonary, eye, ENT system symptoms on review. She is tolerating the increased Depakote. MENTAL STATUS EXAM: Oriented to herself. Insight, judgment, recent and remote memory, attention, concentration, fund of knowledge poor, consistent with her diagnosis. She is somewhat less labile. LABORATORY DATA: Reviewed. IMPRESSION: Unchanged from initial note. PLAN: Follow labs level on the Depakote. Adjust as clinically indicated. SHASHI CRAVEN MD DR: MINGO/emmanuel JOB#: [id number] / [id number]
[2017-07-22 05:00] VITALS: BP 144/64
[2017-07-22] MEDS: POLYETHYLENE GLYCOL 3350 17 GM PACKET. PO SCH (08:00)
[2017-07-22] MEDS: QUEtiapine 25 MG TABLET. PO SCH ×2 (08:00→21:19)
[2017-07-22] MEDS: DIVALPROEX 125 MG CAP.SPRINK PO SCH ×2 (08:01→21:18)
[2017-07-22] MEDS: METOPROLOL SUCC 24HR ER 25 MG TAB.ER.24H. PO SCH (08:01)
[2017-07-22] MEDS: DORZOLAMIDE 2% OPHTH SOLUTION 10ML BOTTLE. OS SCH ×2 (08:03→21:18)
[2017-07-22] MEDS: prednisoLONE ACETATE 1% OPHTH SUSPENSION 5ML BOTTLE. OS SCH ×4 (08:03→21:18)
--- NOTE | 2017-07-22 20:50 | PDOC ---
Exam Note: Hiram Note: Please also refer to the separate dictated note~for this date of service dictated separately.~Patient seen individually. Discussed the patient with Nursing staff reviewed the chart.~Reviewed interim history and current functioning. Reviewed vital signs,~Labs/ Radiology~and current medications noted below. Continue current treatment with the changes noted in the dictated addendum note Assessment: Vital Signs: Vital Signs Date Time Temp Pulse Resp B/P (MAP) Pulse Ox O2 Delivery O2 Flow Rate FiO2 07/22/17 08:01 63 144/64 07/22/17 05:00 97.1 18 98 07/21/17 06:37 Room Air I&O Intake and Output 07/22/17 07:00 Intake Total 1080 ml Balance 1080 ml Intake Oral 1080 ml # Voids 1 # Bowel Movements 1 Current Medications: Meds: Current Medications Haloperidol Lactate (Haldol) 2.5 mg 1X ONCE IM Last administered on 07/16/17at 17:15; Start 07/16/17 at 17:15; Stop 07/16/17 at 17:16; Status DC Haloperidol Lactate (Haldol) 5 mg 1X ONCE IM Last administered on 07/16/17at 18 :00; Start 07/16/17 at 18:00; Stop 07/16/17 at 18:10; Status DC Acetaminophen (Tylenol) 650 mg PRN Q6HRS PRN PO PAIN / TEMP; Start 07/16/17 at 21:15 Multi-Ingredient Ointment (Analgesic [place]) 1 william PRN QID PRN TP MUSCLE PAIN; Start 07/16/17 at 21:15 Al Hydroxide/Mg Hydroxide (Mylanta Plus Xs) 15 ml PRN AFTMEALHC PRN PO DYSPEPSIA; Start 07/16/17 at 21:15 Magnesium Hydroxide (Milk Of Magnesia) 2,400 mg PRN QHS PRN PO CONSTIPATION Last administered on 07/19/17at 00:01; Start 07/16/17 at 21:15 Acetaminophen (Tylenol) 650 mg PRN Q6HRS PRN PO PAIN / TEMP; Start 07/16/17 at 23:15; Status UNV Dorzolamide HCl (Trusopt) 1 drop BID OS Last administered on 07/22/17at 08:03; Start 07/17/17 at 09:00 Latanoprost (Xalatan) 1 drop QHS OS Last administered on 07/21/17 20:16; Start 07/17/17 at 21:00 Al Hydroxide/Mg Hydroxide (Mylanta Plus Xs) 15 ml PRN AFTMEALHC PRN PO DYSPEPSIA; Start 07/16/17 at 23:15; Status UNV Magnesium Hydroxide (Milk Of Magnesia) 2,400 mg PRN QHS PRN PO CONSTIPATION; Start 07/16/17 at 23:15; Status UNV Metoprolol Succinate (Toprol Xl) 12.5 mg DAILY PO Last administered on 08:01; Start 07/17/17 at 09:00 Polyethylene Glycol (miraLAX) 17 gm DAILY PO Last administered on 07/22/17 08: 00; Start 07/17/17 at 09:00 Prednisolone Acetate (Pred Forte) 1 drop QID OS Last administered on 07/22/17 16:40; Start 07/17/17 at 09:00 Divalproex Sodium (Depakote Sprinkles) 250 mg HS PO Last administered on 19:25; Start 07/17/17 at 21:00; Stop 07/19/17 at 19:45; Status DC Divalproex Sodium (Depakote Sprinkles) 500 mg DAILY PO Last administered on 08:01; Start 07/17/17 at 09:00 Lorazepam (Ativan Intensol) 0.25 mg DAILY@1400 PO Last administered on 14:35; Start 07/17/17 at 14:00; Stop 07/18/17 at 18:16; Status DC Quetiapine Fumarate (SEROquel) 12.5 mg BID PO Last administered on 07/22/17 08 :00; Start 07/17/17 at 09:00 Divalproex Sodium (Depakote Sprinkles) 500 mg HS PO Last administered on 20:13; Start 07/19/17 at 21:00 Olanzapine (ZyPREXA ZYDIS) 1.25 mg PRN Q2HR PRN PO PSYCHOSIS Last administered on 07/22/17 13:06; Start 07/20/17 at 22:45 Trazodone HCl (Desyrel) 50 mg PRN QHS PRN PO INSOMNIA, MAY REPEAT X1; Start at 22:45 Active Scripts Active Reported Xalatan (Latanoprost) 2.5 Ml Drops 1 Drop LEFTEYE QHS Pred Forte (Prednisolone Acetate) 1 Ml Drops.susp 1 Drop OS QID Metoprolol Succinate ( Xl ) (Metoprolol Succinate) 25 Mg Tab.er.24h 12.5 Mg PO DAILY Lorazepam Intensol (Lorazepam) 2 Mg/1 Ml Oral.conc 0.25 Mg PO DAILY@1400 Glycolax (Polyethylene Glycol 3350) 119 Gm Powder 17 Gm PO DAILY Dorzolamide Hcl 10 Ml Drops 1 Drop LEFTEYE BID Depakote Sprinkle (Divalproex Sodium) 125 Mg Cap.sprink 250 Mg PO HS Milk Of Magnesia (Magnesium Hydroxide) 400 Mg/5 Ml Oral.susp 2,400 Mg PO PRN QHS PRN Mag-Al Plus Xs Suspension (Mag Hydrox/Al Hydrox/Simeth) 30 Ml Oral.susp 15 Ml PO PRN AFTMEALHC PRN Depakote Sprinkle (Divalproex Sodium) 125 Mg Cap.sprink 500 Mg PO DAILY Tylenol (Acetaminophen) 325 Mg Tablet 650 Mg PO PRN Q6HRS PRN Seroquel (Quetiapine Fumarate) 25 Mg Tablet 12.5 Mg PO BID I have reviewed the current psychotropics carefully including drug interactions. Risk benefit ratio favors no change other than as noted in my dictated progress note. Diagnosis: Problems: (1) Dementia with behavioral disturbance (2) Urinary tract infection (3) Anxiety disorder (4) Impulse control disorder (5) Dementia, vascular, with depression (6) Dementia, vascular, with delusions (7) Dementia in Alzheimer's disease with depression (8) Dementia in Alzheimer's disease with delusions SHASHI CRAVEN MD Jul 22, 2017 20:50
[2017-07-22] MEDS: LATANOPROST 0.005% OPHTH SOLUTION 2.5ML BOTTLE. OS SCH (21:18)
[2017-07-22] MEDS: MAGNESIUM HYDROXIDE 2,400 MG/30 ML ORAL.SUSP. PO PRN (21:18)
--- NOTE | 2017-07-23 00:33 | PN ---
DATE: 07/21/2017 This late entry of 07/21/2017 covers elements not covered in my initial note of 07/21/2017. SUBJECTIVE: I met with the patient evening of 07/21/2017. The patient slept 6-1/4 hours previous evening. She gets somewhat anxious, restless, agitated at times. She reportedly hates to be in a Broda chair per nursing report. Appetite varies. REVIEW OF SYSTEMS: Ambulation impaired, in Broda chair. No CV, , pulmonary, eye, ENT system symptoms on review. MENTAL STATUS EXAM: Oriented to herself. Insight, judgment, recent and remote memory, attention, concentration, fund of knowledge poor, consistent with her diagnosis mentioned in my initial note. IMPRESSION: Major neurocognitive disorder, Alzheimer, vascular with depression, delusion, behavioral disturbance. Rest unchanged. PLAN: Continue psychotropics mentioned in my initial note and adjust as clinically indicated. MAN April CRAVEN MD DR: MINGO/emmanuel JOB#: [id number] / [id number]
[2017-07-23 06:38] VITALS: BP 155/69
[2017-07-23 08:07] LABS: BASO % 1 % (0-3); EOS # 0.2 x10^3/uL (0.0-0.7); EOS % 4 % (0-3); HEMOGLOBIN 14.5 g/dL (12.0-15.5); LYMPH # 1.8 x10^3/uL (1.0-4.8); LYMPH % 38 % (24-48); MEAN CORPUSCULAR HEMOGLOBIN 29 pg (25-35); MEAN CORPUSCULAR HGB CONC 34 g/dL (31-37); MEAN CORPUSCULAR VOLUME 87 fL (79-100); MONO # 0.5 x10^3/uL (0.0-1.1); MONO % 11 % (0-9); NEUT # 2.2 x10^3uL (1.8-7.7); NEUT % 46 % (31-73); PLATELET COUNT 208 x10^3/uL (140-400); RED BLOOD COUNT 4.95 x10^6/uL (3.50-5.40); WHITE BLOOD COUNT 4.8 x10^3/uL (4.0-11.0)
[2017-07-23 08:29] LABS: VAL ACID 90 mcg/mL (50-100)
[2017-07-23 08:51] LABS: ALBUMIN 3.2 g/dL (3.4-5.0); ALBUMIN/GLOBULIN RATIO 0.8 (1.0-1.7); ALK PHOS 89 U/L (46-116); ALT (SGPT) 18 U/L (14-59); ANION GAP 11 (6-14); AST (SGOT) 15 U/L (15-37); BLOOD UREA NITROGEN 33 mg/dL (7-20); BUN/CREATININE RATIO 24 (6-20); CALCIUM 9.1 mg/dL (8.5-10.1); CARBON DIOXIDE 23 mmol/L (21-32); CHLORIDE 111 mmol/L (98-107); CREATININE 1.4 mg/dL (0.6-1.0); GFR 35.7; GLUCOSE 93 mg/dL (70-99); POTASSIUM 4.6 mmol/L (3.5-5.1); SODIUM 145 mmol/L (136-145); TOTAL BILIRUBIN 0.4 mg/dL (0.2-1.0); TOTAL PROTEIN 7.2 g/dL (6.4-8.2)
[2017-07-23] MEDS: QUEtiapine 25 MG TABLET. PO SCH ×2 (09:48→21:17)
[2017-07-23] MEDS: METOPROLOL SUCC 24HR ER 25 MG TAB.ER.24H. PO SCH (09:48)
[2017-07-23] MEDS: DORZOLAMIDE 2% OPHTH SOLUTION 10ML BOTTLE. OS SCH ×2 (09:49→21:26)
[2017-07-23] MEDS: POLYETHYLENE GLYCOL 3350 17 GM PACKET. PO SCH (09:49)
[2017-07-23] MEDS: DIVALPROEX 125 MG CAP.SPRINK PO SCH ×2 (09:49→21:18)
[2017-07-23] MEDS: prednisoLONE ACETATE 1% OPHTH SUSPENSION 5ML BOTTLE. OS SCH ×4 (09:49→21:26)
[2017-07-23 09:58] LABS: PLT ESTIMATE ADEQUATE (ADEQUATE)
[2017-07-23 15:50] VITALS: BP 153/78
--- NOTE | 2017-07-23 20:28 | PDOC ---
Exam Note: Hiram Note: Please also refer to the separate dictated note~for this date of service dictated separately.~Patient seen individually. Discussed the patient with Nursing staff reviewed the chart.~Reviewed interim history and current functioning. Reviewed vital signs,~Labs/ Radiology~and current medications noted below. Continue current treatment with the changes noted in the dictated addendum note Assessment: Vital Signs: Vital Signs Date Time Temp Pulse Resp B/P (MAP) Pulse Ox O2 Delivery O2 Flow Rate FiO2 07/23/17 15:50 98.4 68 16 153/78 (103) 93 07/23/17 06:38 Room Air I&O Intake and Output 07/23/17 07:00 Intake Total 1080 ml Balance 1080 ml Intake Oral 1080 ml # Voids 2 Labs: Laboratory Tests Test 07/23/17 07:22 White Blood Count 4.8 x10^3/uL (4.0-11.0) Red Blood Count 4.95 x10^6/uL (3.50-5.40) Hemoglobin 14.5 g/dL (12.0-15.5) Hematocrit 43.0 % (36.0-47.0) Mean Corpuscular Volume 87 fL (79-100) Mean Corpuscular Hemoglobin 29 pg (25-35) Mean Corpuscular Hemoglobin Concent 34 g/dL (31-37) Red Cell Distribution Width 14.0 % (11.5-14.5) Platelet Count 208 x10^3/uL (140-400) Neutrophils (%) (Auto) 46 % (31-73) Lymphocytes (%) (Auto) 38 % (24-48) Monocytes (%) (Auto) 11 % (0-9) H Eosinophils (%) (Auto) 4 % (0-3) H Basophils (%) (Auto) 1 % (0-3) Neutrophils # (Auto) 2.2 x10^3uL (1.8-7.7) Lymphocytes # (Auto) 1.8 x10^3/uL (1.0-4.8) Monocytes # (Auto) 0.5 x10^3/uL (0.0-1.1) Eosinophils # (Auto) 0.2 x10^3/uL (0.0-0.7) Basophils # (Auto) 0.0 x10^3/uL (0.0-0.2) Platelet Estimate Adequate (ADEQUATE) Large Platelets Present Sodium Level 145 mmol/L (136-145) Potassium Level 4.6 mmol/L (3.5-5.1) Chloride Level 111 mmol/L (98-107) H Carbon Dioxide Level 23 mmol/L (21-32) Anion Gap 11 (6-14) Blood Urea Nitrogen 33 mg/dL (7-20) H Creatinine 1.4 mg/dL (0.6-1.0) H Estimated GFR (Cockcroft-Gault) 35.7 BUN/Creatinine Ratio 24 (6-20) H Glucose Level 93 mg/dL (70-99) Calcium Level 9.1 mg/dL (8.5-10.1) Total Bilirubin 0.4 mg/dL (0.2-1.0) Aspartate Amino Transferase (AST) 15 U/L (15-37) Alanine Aminotransferase (ALT) 18 U/L (14-59) Alkaline Phosphatase 89 U/L (46-116) Total Protein 7.2 g/dL (6.4-8.2) Albumin 3.2 g/dL (3.4-5.0) L Albumin/Globulin Ratio 0.8 (1.0-1.7) L Valproic Acid Level 90 mcg/mL (50-100) Valproic Acid Last Dose Date 07/22/17 Valproic Acid Last Dose Time 2100 Current Medications: Meds: Current Medications Haloperidol Lactate (Haldol) 2.5 mg 1X ONCE IM Last administered on 07/16/17at 17:15; Start 07/16/17 at 17:15; Stop 07/16/17 at 17:16; Status DC Haloperidol Lactate (Haldol) 5 mg 1X ONCE IM Last administered on 07/16/17at 18 :00; Start 07/16/17 at 18:00; Stop 07/16/17 at 18:10; Status DC Acetaminophen (Tylenol) 650 mg PRN Q6HRS PRN PO PAIN / TEMP; Start 07/16/17 at 21:15 Multi-Ingredient Ointment (Analgesic [place]) 1 william PRN QID PRN TP MUSCLE PAIN; Start 07/16/17 at 21:15 Al Hydroxide/Mg Hydroxide (Mylanta Plus Xs) 15 ml PRN AFTMEALHC PRN PO DYSPEPSIA; Start 07/16/17 at 21:15 Magnesium Hydroxide (Milk Of Magnesia) 2,400 mg PRN QHS PRN PO CONSTIPATION Last administered on 07/22/17 21:18; Start 07/16/17 at 21:15 Acetaminophen (Tylenol) 650 mg PRN Q6HRS PRN PO PAIN / TEMP; Start 07/16/17 at 23:15; Status UNV Dorzolamide HCl (Trusopt) 1 drop BID OS Last administered on 07/23/17 09:49; Start 07/17/17 at 09:00 Latanoprost (Xalatan) 1 drop QHS OS Last administered on 07/22/17 21:18; Start 07/17/17 at 21:00 Al Hydroxide/Mg Hydroxide (Mylanta Plus Xs) 15 ml PRN AFTMEALHC PRN PO DYSPEPSIA; Start 07/16/17 at 23:15; Status UNV Magnesium Hydroxide (Milk Of Magnesia) 2,400 mg PRN QHS PRN PO CONSTIPATION; Start 07/16/17 at 23:15; Status UNV Metoprolol Succinate (Toprol Xl) 12.5 mg DAILY PO Last administered on 09:48; Start 07/17/17 at 09:00 Polyethylene Glycol (miraLAX) 17 gm DAILY PO Last administered on 07/23/17 09: 49; Start 07/17/17 at 09:00 Prednisolone Acetate (Pred Forte) 1 drop QID OS Last administered on 07/23/17 16:55; Start 07/17/17 at 09:00 Divalproex Sodium (Depakote Sprinkles) 250 mg HS PO Last administered on 19:25; Start 07/17/17 at 21:00; Stop 07/19/17 at 19:45; Status DC Divalproex Sodium (Depakote Sprinkles) 500 mg DAILY PO Last administered on 09:49; Start 07/17/17 at 09:00 Lorazepam (Ativan Intensol) 0.25 mg DAILY@1400 PO Last administered on 14:35; Start 07/17/17 at 14:00; Stop 07/18/17 at 18:16; Status DC Quetiapine Fumarate (SEROquel) 12.5 mg BID PO Last administered on 07/23/17at 09 :48; Start 07/17/17 at 09:00 Divalproex Sodium (Depakote Sprinkles) 500 mg HS PO Last administered on at 21:18; Start 07/19/17 at 21:00 Olanzapine (ZyPREXA ZYDIS) 1.25 mg PRN Q2HR PRN PO PSYCHOSIS Last administered on 07/22/17at 13:06; Start 07/20/17 at 22:45 Trazodone HCl (Desyrel) 50 mg PRN QHS PRN PO INSOMNIA, MAY REPEAT X1; Start at 22:45 Active Scripts Active Reported Xalatan (Latanoprost) 2.5 Ml Drops 1 Drop LEFTEYE QHS Pred Forte (Prednisolone Acetate) 1 Ml Drops.susp 1 Drop OS QID Metoprolol Succinate ( Xl ) (Metoprolol Succinate) 25 Mg Tab.er.24h 12.5 Mg PO DAILY Lorazepam Intensol (Lorazepam) 2 Mg/1 Ml Oral.conc 0.25 Mg PO DAILY@1400 Glycolax (Polyethylene Glycol 3350) 119 Gm Powder 17 Gm PO DAILY Dorzolamide Hcl 10 Ml Drops 1 Drop LEFTEYE BID Depakote Sprinkle (Divalproex Sodium) 125 Mg Cap.sprink 250 Mg PO HS Milk Of Magnesia (Magnesium Hydroxide) 400 Mg/5 Ml Oral.susp 2,400 Mg PO PRN QHS PRN Mag-Al Plus Xs Suspension (Mag Hydrox/Al Hydrox/Simeth) 30 Ml Oral.susp 15 Ml PO PRN AFTMEALHC PRN Depakote Sprinkle (Divalproex Sodium) 125 Mg Cap.sprink 500 Mg PO DAILY Tylenol (Acetaminophen) 325 Mg Tablet 650 Mg PO PRN Q6HRS PRN Seroquel (Quetiapine Fumarate) 25 Mg Tablet 12.5 Mg PO BID I have reviewed the current psychotropics carefully including drug interactions. Risk benefit ratio favors no change other than as noted in my dictated progress note. Diagnosis: Problems: (1) Dementia with behavioral disturbance (2) Urinary tract infection (3) Anxiety disorder (4) Impulse control disorder (5) Dementia, vascular, with depression (6) Dementia, vascular, with delusions (7) Dementia in Alzheimer's disease with depression (8) Dementia in Alzheimer's disease with delusions HERBER,MAN M MD Jul 23, 2017 20:28
[2017-07-23] MEDS: LATANOPROST 0.005% OPHTH SOLUTION 2.5ML BOTTLE. OS SCH (21:26)
--- NOTE | 2017-07-23 22:17 | PN ---
DATE: 07/22/2017 PSYCHIATRIC PROGRESS NOTE This is a late entry on 07/22/2017, covers elements not covered in my initial note on 07/22/2017. SUBJECTIVE: I met with the patient in the evening. The patient slept 4-1/2 hours, did well the previous night, but during the day on 07/23/2017, extremely anxious, restless, fidgety, remains confused, received Zyprexa, which helped a little. REVIEW OF SYSTEMS: No CV, , pulmonary, eye, ENT system symptoms on review. Gait unsteady, in Broda chair. Reliability poor. MENTAL STATUS EXAM: Oriented to herself. Insight, judgment, recent and remote memory, attention, concentration, fund of knowledge poor, consistent with her diagnosis. IMPRESSION: Major neurocognitive disorder, Alzheimer, vascular with delusion, depression. PLAN: Continue current psychotropics, adjust as indicated. MAN April CRAVEN MD DR: MINGO/emmanuel JOB#: [id number] / [id number]
[2017-07-24 06:19] VITALS: BP 142/84
[2017-07-24] MEDS: DIVALPROEX 125 MG CAP.SPRINK PO SCH ×2 (09:30→20:04)
[2017-07-24] MEDS: METOPROLOL SUCC 24HR ER 25 MG TAB.ER.24H. PO SCH (09:31)
[2017-07-24] MEDS: QUEtiapine 25 MG TABLET. PO SCH ×2 (09:31→20:04)
[2017-07-24] MEDS: DORZOLAMIDE 2% OPHTH SOLUTION 10ML BOTTLE. OS SCH ×2 (09:31→20:04)
[2017-07-24] MEDS: prednisoLONE ACETATE 1% OPHTH SUSPENSION 5ML BOTTLE. OS SCH ×4 (09:31→20:06)
[2017-07-24] MEDS: POLYETHYLENE GLYCOL 3350 17 GM PACKET. PO SCH (09:31)
[2017-07-24] MEDS: ACETAMINOPHEN 325 MG TABLET PO PRN (15:56)
[2017-07-24 16:23] VITALS: BP 147/69
[2017-07-24] MEDS: LATANOPROST 0.005% OPHTH SOLUTION 2.5ML BOTTLE. OS SCH (20:06)
--- NOTE | 2017-07-24 21:13 | PDOC ---
Exam Note: Hiram Note: Please also refer to the separate dictated note~for this date of service dictated separately.~Patient seen individually. Discussed the patient with Nursing staff reviewed the chart.~Reviewed interim history and current functioning. Reviewed vital signs,~Labs/ Radiology~and current medications noted below. Continue current treatment with the changes noted in the dictated addendum note Assessment: Vital Signs: Vital Signs Date Time Temp Pulse Resp B/P (MAP) Pulse Ox O2 Delivery O2 Flow Rate FiO2 07/24/17 16:23 97.8 65 22 147/69 (95) 97 07/23/17 06:38 Room Air I&O Intake and Output 07/24/17 07:00 Intake Total 960 ml Balance 960 ml Intake Oral 960 ml # Voids 1 Current Medications: Meds: Current Medications Haloperidol Lactate (Haldol) 2.5 mg 1X ONCE IM Last administered on 07/16/17 17:15; Start 07/16/17 at 17:15; Stop 07/16/17 at 17:16; Status DC Haloperidol Lactate (Haldol) 5 mg 1X ONCE IM Last administered on 07/16/17at 18 :00; Start 07/16/17 at 18:00; Stop 07/16/17 at 18:10; Status DC Acetaminophen (Tylenol) 650 mg PRN Q6HRS PRN PO PAIN / TEMP Last administered on 07/24/17at 15:56; Start 07/16/17 at 21:15 Multi-Ingredient Ointment (Analgesic [place]) 1 william PRN QID PRN TP MUSCLE PAIN; Start 07/16/17 at 21:15 Al Hydroxide/Mg Hydroxide (Mylanta Plus Xs) 15 ml PRN AFTMEALHC PRN PO DYSPEPSIA; Start 07/16/17 at 21:15 Magnesium Hydroxide (Milk Of Magnesia) 2,400 mg PRN QHS PRN PO CONSTIPATION Last administered on 07/22/17at 21:18; Start 07/16/17 at 21:15 Acetaminophen (Tylenol) 650 mg PRN Q6HRS PRN PO PAIN / TEMP; Start 07/16/17 at 23:15; Status UNV Dorzolamide HCl (Trusopt) 1 drop BID OS Last administered on 07/24/17at 20:04; Start 07/17/17 at 09:00 Latanoprost (Xalatan) 1 drop QHS OS Last administered on 07/24/17 20:06; Start 07/17/17 at 21:00 Al Hydroxide/Mg Hydroxide (Mylanta Plus Xs) 15 ml PRN AFTMEALHC PRN PO DYSPEPSIA; Start 07/16/17 at 23:15; Status UNV Magnesium Hydroxide (Milk Of Magnesia) 2,400 mg PRN QHS PRN PO CONSTIPATION; Start 07/16/17 at 23:15; Status UNV Metoprolol Succinate (Toprol Xl) 12.5 mg DAILY PO Last administered on 09:31; Start 07/17/17 at 09:00 Polyethylene Glycol (miraLAX) 17 gm DAILY PO Last administered on 07/24/17 09: 31; Start 07/17/17 at 09:00 Prednisolone Acetate (Pred Forte) 1 drop QID OS Last administered on 07/24/17 20:06; Start 07/17/17 at 09:00 Divalproex Sodium (Depakote Sprinkles) 250 mg HS PO Last administered on 19:25; Start 07/17/17 at 21:00; Stop 07/19/17 at 19:45; Status DC Divalproex Sodium (Depakote Sprinkles) 500 mg DAILY PO Last administered on 09:30; Start 07/17/17 at 09:00 Lorazepam (Ativan Intensol) 0.25 mg DAILY@1400 PO Last administered on at 14:35; Start 07/17/17 at 14:00; Stop 07/18/17 at 18:16; Status DC Quetiapine Fumarate (SEROquel) 12.5 mg BID PO Last administered on 07/24/17 20 :04; Start 07/17/17 at 09:00 Divalproex Sodium (Depakote Sprinkles) 500 mg HS PO Last administered on 20:04; Start 07/19/17 at 21:00 Olanzapine (ZyPREXA ZYDIS) 1.25 mg PRN Q2HR PRN PO PSYCHOSIS Last administered on 07/24/17 15:56; Start 07/20/17 at 22:45 Trazodone HCl (Desyrel) 50 mg PRN QHS PRN PO INSOMNIA, MAY REPEAT X1; Start at 22:45 Active Scripts Active Reported Xalatan (Latanoprost) 2.5 Ml Drops 1 Drop LEFTEYE QHS Pred Forte (Prednisolone Acetate) 1 Ml Drops.susp 1 Drop OS QID Metoprolol Succinate ( Xl ) (Metoprolol Succinate) 25 Mg Tab.er.24h 12.5 Mg PO DAILY Lorazepam Intensol (Lorazepam) 2 Mg/1 Ml Oral.conc 0.25 Mg PO DAILY@1400 Glycolax (Polyethylene Glycol 3350) 119 Gm Powder 17 Gm PO DAILY Dorzolamide Hcl 10 Ml Drops 1 Drop LEFTEYE BID Depakote Sprinkle (Divalproex Sodium) 125 Mg Cap.sprink 250 Mg PO HS Milk Of Magnesia (Magnesium Hydroxide) 400 Mg/5 Ml Oral.susp 2,400 Mg PO PRN QHS PRN Mag-Al Plus Xs Suspension (Mag Hydrox/Al Hydrox/Simeth) 30 Ml Oral.susp 15 Ml PO PRN AFTMEALHC PRN Depakote Sprinkle (Divalproex Sodium) 125 Mg Cap.sprink 500 Mg PO DAILY Tylenol (Acetaminophen) 325 Mg Tablet 650 Mg PO PRN Q6HRS PRN Seroquel (Quetiapine Fumarate) 25 Mg Tablet 12.5 Mg PO BID I have reviewed the current psychotropics carefully including drug interactions. Risk benefit ratio favors no change other than as noted in my dictated progress note. 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
[2017-07-25 05:58] VITALS: BP 169/68
[2017-07-25] MEDS: POLYETHYLENE GLYCOL 3350 17 GM PACKET. PO SCH (08:45)
[2017-07-25] MEDS: DIVALPROEX 125 MG CAP.SPRINK PO SCH ×2 (08:45→20:17)
[2017-07-25] MEDS: prednisoLONE ACETATE 1% OPHTH SUSPENSION 5ML BOTTLE. OS SCH ×4 (08:45→20:17)
[2017-07-25] MEDS: DORZOLAMIDE 2% OPHTH SOLUTION 10ML BOTTLE. OS SCH ×2 (08:45→20:17)
[2017-07-25] MEDS: METOPROLOL SUCC 24HR ER 25 MG TAB.ER.24H. PO SCH (08:45)
[2017-07-25] MEDS: QUEtiapine 25 MG TABLET. PO SCH ×2 (08:45→20:16)
[2017-07-25 16:28] VITALS: BP 147/74
[2017-07-25] MEDS: LATANOPROST 0.005% OPHTH SOLUTION 2.5ML BOTTLE. OS SCH (20:17)
--- NOTE | 2017-07-25 23:00 | PDOC ---
Exam Note: Hiram Note: Please also refer to the separate dictated note~for this date of service dictated separately.~Patient seen individually. Discussed the patient with Nursing staff reviewed the chart.~Reviewed interim history and current functioning. Reviewed vital signs,~Labs/ Radiology~and current medications noted below. Continue current treatment with the changes noted in the dictated addendum note Assessment: Vital Signs: Vital Signs Date Time Temp Pulse Resp B/P (MAP) Pulse Ox O2 Delivery O2 Flow Rate FiO2 07/25/17 16:28 97.7 68 16 147/74 (98) 93 07/23/17 06:38 Room Air I&O Intake and Output 07/25/17 07:00 Intake Total 840 ml Balance 840 ml Intake Oral 840 ml # Voids 2 # Bowel Movements 2 Current Medications: Meds: Current Medications Haloperidol Lactate (Haldol) 2.5 mg 1X ONCE IM Last administered on 07/16/17 17:15; Start 07/16/17 at 17:15; Stop 07/16/17 at 17:16; Status DC Haloperidol Lactate (Haldol) 5 mg 1X ONCE IM Last administered on 07/16/17at 18 :00; Start 07/16/17 at 18:00; Stop 07/16/17 at 18:10; Status DC Acetaminophen (Tylenol) 650 mg PRN Q6HRS PRN PO PAIN / TEMP Last administered on 07/24/17at 15:56; Start 07/16/17 at 21:15 Multi-Ingredient Ointment (Analgesic [place]) 1 william PRN QID PRN TP MUSCLE PAIN; Start 07/16/17 at 21:15 Al Hydroxide/Mg Hydroxide (Mylanta Plus Xs) 15 ml PRN AFTMEALHC PRN PO DYSPEPSIA; Start 07/16/17 at 21:15 Magnesium Hydroxide (Milk Of Magnesia) 2,400 mg PRN QHS PRN PO CONSTIPATION Last administered on 07/22/17at 21:18; Start 07/16/17 at 21:15 Acetaminophen (Tylenol) 650 mg PRN Q6HRS PRN PO PAIN / TEMP; Start 07/16/17 at 23:15; Status UNV Dorzolamide HCl (Trusopt) 1 drop BID OS Last administered on 07/25/17at 20:17; Start 07/17/17 at 09:00 Latanoprost (Xalatan) 1 drop QHS OS Last administered on 07/25/17 20:17; Start 07/17/17 at 21:00 Al Hydroxide/Mg Hydroxide (Mylanta Plus Xs) 15 ml PRN AFTMEALHC PRN PO DYSPEPSIA; Start 07/16/17 at 23:15; Status UNV Magnesium Hydroxide (Milk Of Magnesia) 2,400 mg PRN QHS PRN PO CONSTIPATION; Start 07/16/17 at 23:15; Status UNV Metoprolol Succinate (Toprol Xl) 12.5 mg DAILY PO Last administered on 08:45; Start 07/17/17 at 09:00 Polyethylene Glycol (miraLAX) 17 gm DAILY PO Last administered on 07/25/17 08: 45; Start 07/17/17 at 09:00 Prednisolone Acetate (Pred Forte) 1 drop QID OS Last administered on 07/25/17 20:17; Start 07/17/17 at 09:00 Divalproex Sodium (Depakote Sprinkles) 250 mg HS PO Last administered on 19:25; Start 07/17/17 at 21:00; Stop 07/19/17 at 19:45; Status DC Divalproex Sodium (Depakote Sprinkles) 500 mg DAILY PO Last administered on 08:45; Start 07/17/17 at 09:00 Lorazepam (Ativan Intensol) 0.25 mg DAILY@1400 PO Last administered on at 14:35; Start 07/17/17 at 14:00; Stop 07/18/17 at 18:16; Status DC Quetiapine Fumarate (SEROquel) 12.5 mg BID PO Last administered on 07/25/17 20 :16; Start 07/17/17 at 09:00 Divalproex Sodium (Depakote Sprinkles) 500 mg HS PO Last administered on 20:17; Start 07/19/17 at 21:00 Olanzapine (ZyPREXA ZYDIS) 1.25 mg PRN Q2HR PRN PO PSYCHOSIS Last administered on 07/25/17 16:40; Start 07/20/17 at 22:45 Trazodone HCl (Desyrel) 50 mg PRN QHS PRN PO INSOMNIA, MAY REPEAT X1; Start at 22:45 Active Scripts Active Reported Xalatan (Latanoprost) 2.5 Ml Drops 1 Drop LEFTEYE QHS Pred Forte (Prednisolone Acetate) 1 Ml Drops.susp 1 Drop OS QID Metoprolol Succinate ( Xl ) (Metoprolol Succinate) 25 Mg Tab.er.24h 12.5 Mg PO DAILY Lorazepam Intensol (Lorazepam) 2 Mg/1 Ml Oral.conc 0.25 Mg PO DAILY@1400 Glycolax (Polyethylene Glycol 3350) 119 Gm Powder 17 Gm PO DAILY Dorzolamide Hcl 10 Ml Drops 1 Drop LEFTEYE BID Depakote Sprinkle (Divalproex Sodium) 125 Mg Cap.sprink 250 Mg PO HS Milk Of Magnesia (Magnesium Hydroxide) 400 Mg/5 Ml Oral.susp 2,400 Mg PO PRN QHS PRN Mag-Al Plus Xs Suspension (Mag Hydrox/Al Hydrox/Simeth) 30 Ml Oral.susp 15 Ml PO PRN AFTMEALHC PRN Depakote Sprinkle (Divalproex Sodium) 125 Mg Cap.sprink 500 Mg PO DAILY Tylenol (Acetaminophen) 325 Mg Tablet 650 Mg PO PRN Q6HRS PRN Seroquel (Quetiapine Fumarate) 25 Mg Tablet 12.5 Mg PO BID I have reviewed the current psychotropics carefully including drug interactions. Risk benefit ratio favors no change other than as noted in my dictated progress note. Diagnosis: Problems: (1) Dementia with behavioral disturbance (2) Urinary tract infection (3) Anxiety disorder (4) Impulse control disorder (5) Dementia, vascular, with depression (6) Dementia, vascular, with delusions (7) Dementia in Alzheimer's disease with depression (8) Dementia in Alzheimer's disease with delusions SHASHI CRAVEN MD Jul 25, 2017 23:00
[2017-07-26 06:34] VITALS: BP 174/74
[2017-07-26] MEDS: POLYETHYLENE GLYCOL 3350 17 GM PACKET. PO SCH (10:34)
[2017-07-26] MEDS: DIVALPROEX 125 MG CAP.SPRINK PO SCH ×2 (10:35→20:20)
[2017-07-26] MEDS: METOPROLOL SUCC 24HR ER 25 MG TAB.ER.24H. PO SCH (10:37)
[2017-07-26] MEDS: QUEtiapine 25 MG TABLET. PO SCH ×2 (10:37→20:21)
[2017-07-26] MEDS: DORZOLAMIDE 2% OPHTH SOLUTION 10ML BOTTLE. OS SCH ×2 (10:39→20:19)
[2017-07-26] MEDS: prednisoLONE ACETATE 1% OPHTH SUSPENSION 5ML BOTTLE. OS SCH ×4 (10:39→20:19)
[2017-07-26 17:31] VITALS: BP 159/88
[2017-07-26] MEDS: LATANOPROST 0.005% OPHTH SOLUTION 2.5ML BOTTLE. OS SCH (20:19)
[2017-07-26] MEDS: METOPROLOL TART IMMED RELEASE 25 MG TABLET PO SCH (20:23)
--- NOTE | 2017-07-26 22:30 | PDOC ---
Exam Note: Hiram Note: Please also refer to the separate dictated note~for this date of service dictated separately.~Patient seen individually. Discussed the patient with Nursing staff reviewed the chart.~Reviewed interim history and current functioning. Reviewed vital signs,~Labs/ Radiology~and current medications noted below. Continue current treatment with the changes noted in the dictated addendum note Assessment: Vital Signs: Vital Signs Date Time Temp Pulse Resp B/P (MAP) Pulse Ox O2 Delivery O2 Flow Rate FiO2 07/26/17 20:23 87 159/88 07/26/17 17:31 98.7 20 96 07/23/17 06:38 Room Air I&O Intake and Output 07/26/17 07:00 Intake Total 1080 ml Balance 1080 ml Intake Oral 1080 ml Current Medications: Meds: Current Medications Haloperidol Lactate (Haldol) 2.5 mg 1X ONCE IM Last administered on 07/16/17 17:15; Start 07/16/17 at 17:15; Stop 07/16/17 at 17:16; Status DC Haloperidol Lactate (Haldol) 5 mg 1X ONCE IM Last administered on 07/16/17at 18 :00; Start 07/16/17 at 18:00; Stop 07/16/17 at 18:10; Status DC Acetaminophen (Tylenol) 650 mg PRN Q6HRS PRN PO PAIN / TEMP Last administered on 07/24/17at 15:56; Start 07/16/17 at 21:15 Multi-Ingredient Ointment (Analgesic [place]) 1 william PRN QID PRN TP MUSCLE PAIN; Start 07/16/17 at 21:15 Al Hydroxide/Mg Hydroxide (Mylanta Plus Xs) 15 ml PRN AFTMEALHC PRN PO DYSPEPSIA; Start 07/16/17 at 21:15 Magnesium Hydroxide (Milk Of Magnesia) 2,400 mg PRN QHS PRN PO CONSTIPATION Last administered on 07/22/17at 21:18; Start 07/16/17 at 21:15 Acetaminophen (Tylenol) 650 mg PRN Q6HRS PRN PO PAIN / TEMP; Start 07/16/17 at 23:15; Status UNV Dorzolamide HCl (Trusopt) 1 drop BID OS Last administered on 07/26/17at 20:19; Start 07/17/17 at 09:00 Latanoprost (Xalatan) 1 drop QHS OS Last administered on 07/26/17 20:19; Start 07/17/17 at 21:00 Al Hydroxide/Mg Hydroxide (Mylanta Plus Xs) 15 ml PRN AFTMEALHC PRN PO DYSPEPSIA; Start 07/16/17 at 23:15; Status UNV Magnesium Hydroxide (Milk Of Magnesia) 2,400 mg PRN QHS PRN PO CONSTIPATION; Start 07/16/17 at 23:15; Status UNV Metoprolol Succinate (Toprol Xl) 12.5 mg DAILY PO Last administered on 10:37; Start 07/17/17 at 09:00; Stop 07/26/17 at 16:16; Status DC Polyethylene Glycol (miraLAX) 17 gm DAILY PO Last administered on 07/26/17 10: 34; Start 07/17/17 at 09:00 Prednisolone Acetate (Pred Forte) 1 drop QID OS Last administered on 07/26/17 20:19; Start 07/17/17 at 09:00 Divalproex Sodium (Depakote Sprinkles) 250 mg HS PO Last administered on 19:25; Start 07/17/17 at 21:00; Stop 07/19/17 at 19:45; Status DC Divalproex Sodium (Depakote Sprinkles) 500 mg DAILY PO Last administered on 10:35; Start 07/17/17 at 09:00 Lorazepam (Ativan Intensol) 0.25 mg DAILY@1400 PO Last administered on 14:35; Start 07/17/17 at 14:00; Stop 07/18/17 at 18:16; Status DC Quetiapine Fumarate (SEROquel) 12.5 mg BID PO Last administered on 07/26/17 20 :21; Start 07/17/17 at 09:00 Divalproex Sodium (Depakote Sprinkles) 500 mg HS PO Last administered on 20:20; Start 07/19/17 at 21:00 Olanzapine (ZyPREXA ZYDIS) 1.25 mg PRN Q2HR PRN PO PSYCHOSIS Last administered on 07/26/17 17:02; Start 07/20/17 at 22:45 Trazodone HCl (Desyrel) 50 mg PRN QHS PRN PO INSOMNIA, MAY REPEAT X1; Start at 22:45 Metoprolol Tartrate (Lopressor) 12.5 mg BID PO Last administered on 07/26/17at 20:23; Start 07/26/17 at 21:00 Active Scripts Active Reported Xalatan (Latanoprost) 2.5 Ml Drops 1 Drop LEFTEYE QHS Pred Forte (Prednisolone Acetate) 1 Ml Drops.susp 1 Drop OS QID Metoprolol Succinate ( Xl ) (Metoprolol Succinate) 25 Mg Tab.er.24h 12.5 Mg PO DAILY Lorazepam Intensol (Lorazepam) 2 Mg/1 Ml Oral.conc 0.25 Mg PO DAILY@1400 Glycolax (Polyethylene Glycol 3350) 119 Gm Powder 17 Gm PO DAILY Dorzolamide Hcl 10 Ml Drops 1 Drop LEFTEYE BID Depakote Sprinkle (Divalproex Sodium) 125 Mg Cap.sprink 250 Mg PO HS Milk Of Magnesia (Magnesium Hydroxide) 400 Mg/5 Ml Oral.susp 2,400 Mg PO PRN QHS PRN Mag-Al Plus Xs Suspension (Mag Hydrox/Al Hydrox/Simeth) 30 Ml Oral.susp 15 Ml PO PRN AFTMEALHC PRN Depakote Sprinkle (Divalproex Sodium) 125 Mg Cap.sprink 500 Mg PO DAILY Tylenol (Acetaminophen) 325 Mg Tablet 650 Mg PO PRN Q6HRS PRN Seroquel (Quetiapine Fumarate) 25 Mg Tablet 12.5 Mg PO BID I have reviewed the current psychotropics carefully including drug interactions. Risk benefit ratio favors no change other than as noted in my dictated progress note. 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
[2017-07-26] MEDS: traZODone 50 MG TABLET. PO PRN (23:38)
[2017-07-27] MEDS: traZODone 50 MG TABLET. PO PRN (00:40)
--- NOTE | 2017-07-27 04:50 | PN ---
DATE: 07/23/2017 This late entry 07/23/2017 covers elements not covered in my initial note 07/23/2017. Met with the patient in the evening of 07/23/2017. The patient remains confused. She remains in a Broda chair, but less trying to jump out of it, pleasant, smiling as I met with her, oblivious of her surroundings. REVIEW OF SYSTEMS: No CV, , pulmonary, eye system symptoms on review. Reliability poor. MENTAL STATUS EXAM: Oriented to herself. Insight, judgment, recent and remote memory, attention, concentration, fund of knowledge poor, consistent with her diagnosis mentioned in my initial note. PLAN: Continue current psychotropics. She received Zyprexa p.r.n. at 8:00 p.m. MAN M. MD HERBER DR: MINGO/emmanuel JOB#: [id number] / [id number]
--- NOTE | 2017-07-27 05:31 | PN ---
DATE: 07/24/2017 PSYCHIATRIC PROGRESS NOTE This is a late entry for 07/24/2017, covers elements not covered in my initial note of 07/24/2017. SUBJECTIVE: I met with the patient in the evening, staffed at a treatment team meeting with the entire team in the morning. Sleeping about 7 hours. Appetite 80%. Ambulates in a Broda chair and at times in wheelchair. Confused, resistive to medications at times, but little more compliant and less psychotic, pleasant, smiling as I met with her. REVIEW OF SYSTEMS: Ambulation impaired. No CV, , pulmonary, eye, ENT system symptoms on review. Reliability poor. MENTAL STATUS EXAM: Oriented to herself. Insight, judgment, recent and remote memory, attention, concentration, fund of knowledge poor, consistent with her diagnosis mentioned in my initial note. PLAN: Continue psychotropics unchanged from initial note. MAN April CRAVEN MD DR: MINGO/emmanuel JOB#: [id number] / [id number]
[2017-07-27 06:22] VITALS: BP 104/75
[2017-07-27] MEDS: METOPROLOL TART IMMED RELEASE 25 MG TABLET PO SCH ×2 (09:20→20:50)
[2017-07-27] MEDS: QUEtiapine 25 MG TABLET. PO SCH ×2 (09:20→20:51)
[2017-07-27] MEDS: prednisoLONE ACETATE 1% OPHTH SUSPENSION 5ML BOTTLE. OS SCH ×4 (09:21→20:49)
[2017-07-27] MEDS: POLYETHYLENE GLYCOL 3350 17 GM PACKET. PO SCH (09:21)
[2017-07-27] MEDS: DORZOLAMIDE 2% OPHTH SOLUTION 10ML BOTTLE. OS SCH ×2 (09:21→20:49)
[2017-07-27] MEDS: DIVALPROEX 125 MG CAP.SPRINK PO SCH ×2 (09:21→20:51)
[2017-07-27 16:15] VITALS: BP 116/74
[2017-07-27] MEDS: LATANOPROST 0.005% OPHTH SOLUTION 2.5ML BOTTLE. OS SCH (20:49)
--- NOTE | 2017-07-27 22:21 | PDOC ---
Exam Note: Hiram Note: Please also refer to the separate dictated note~for this date of service dictated separately.~Patient seen individually. Discussed the patient with Nursing staff reviewed the chart.~Reviewed interim history and current functioning. Reviewed vital signs,~Labs/ Radiology~and current medications noted below. Continue current treatment with the changes noted in the dictated addendum note Assessment: Vital Signs: Vital Signs Date Time Temp Pulse Resp B/P (MAP) Pulse Ox O2 Delivery O2 Flow Rate FiO2 07/27/17 20:50 58 116/74 07/27/17 16:15 97.3 18 96 07/23/17 06:38 Room Air I&O Intake and Output 07/27/17 07:00 Intake Total 1780 ml Balance 1780 ml Intake Oral 1780 ml # Bowel Movements 3 Current Medications: Meds: Current Medications Haloperidol Lactate (Haldol) 2.5 mg 1X ONCE IM Last administered on 07/16/17 17:15; Start 07/16/17 at 17:15; Stop 07/16/17 at 17:16; Status DC Haloperidol Lactate (Haldol) 5 mg 1X ONCE IM Last administered on 07/16/17at 18 :00; Start 07/16/17 at 18:00; Stop 07/16/17 at 18:10; Status DC Acetaminophen (Tylenol) 650 mg PRN Q6HRS PRN PO PAIN / TEMP Last administered on 07/24/17at 15:56; Start 07/16/17 at 21:15 Multi-Ingredient Ointment (Analgesic [place]) 1 william PRN QID PRN TP MUSCLE PAIN; Start 07/16/17 at 21:15 Al Hydroxide/Mg Hydroxide (Mylanta Plus Xs) 15 ml PRN AFTMEALHC PRN PO DYSPEPSIA; Start 07/16/17 at 21:15 Magnesium Hydroxide (Milk Of Magnesia) 2,400 mg PRN QHS PRN PO CONSTIPATION Last administered on 07/22/17at 21:18; Start 07/16/17 at 21:15 Acetaminophen (Tylenol) 650 mg PRN Q6HRS PRN PO PAIN / TEMP; Start 07/16/17 at 23:15; Status UNV Dorzolamide HCl (Trusopt) 1 drop BID OS Last administered on 07/27/17at 20:49; Start 07/17/17 at 09:00 Latanoprost (Xalatan) 1 drop QHS OS Last administered on 07/27/17 20:49; Start 07/17/17 at 21:00 Al Hydroxide/Mg Hydroxide (Mylanta Plus Xs) 15 ml PRN AFTMEALHC PRN PO DYSPEPSIA; Start 07/16/17 at 23:15; Status UNV Magnesium Hydroxide (Milk Of Magnesia) 2,400 mg PRN QHS PRN PO CONSTIPATION; Start 07/16/17 at 23:15; Status UNV Metoprolol Succinate (Toprol Xl) 12.5 mg DAILY PO Last administered on 10:37; Start 07/17/17 at 09:00; Stop 07/26/17 at 16:16; Status DC Polyethylene Glycol (miraLAX) 17 gm DAILY PO Last administered on 07/27/17 09: 21; Start 07/17/17 at 09:00 Prednisolone Acetate (Pred Forte) 1 drop QID OS Last administered on 07/27/17 20:49; Start 07/17/17 at 09:00 Divalproex Sodium (Depakote Sprinkles) 250 mg HS PO Last administered on 19:25; Start 07/17/17 at 21:00; Stop 07/19/17 at 19:45; Status DC Divalproex Sodium (Depakote Sprinkles) 500 mg DAILY PO Last administered on 09:21; Start 07/17/17 at 09:00 Lorazepam (Ativan Intensol) 0.25 mg DAILY@1400 PO Last administered on 14:35; Start 07/17/17 at 14:00; Stop 07/18/17 at 18:16; Status DC Quetiapine Fumarate (SEROquel) 12.5 mg BID PO Last administered on 07/27/17 20 :51; Start 07/17/17 at 09:00 Divalproex Sodium (Depakote Sprinkles) 500 mg HS PO Last administered on 20:51; Start 07/19/17 at 21:00 Olanzapine (ZyPREXA ZYDIS) 1.25 mg PRN Q2HR PRN PO PSYCHOSIS Last administered on 07/27/17 00:40; Start 07/20/17 at 22:45 Trazodone HCl (Desyrel) 50 mg PRN QHS PRN PO INSOMNIA, MAY REPEAT X1 Last administered on 07/27/17at 00:40; Start 07/20/17 at 22:45 Metoprolol Tartrate (Lopressor) 12.5 mg BID PO Last administered on 07/27/17at 20:50; Start 07/26/17 at 21:00 Active Scripts Active Reported Xalatan (Latanoprost) 2.5 Ml Drops 1 Drop LEFTEYE QHS Pred Forte (Prednisolone Acetate) 1 Ml Drops.susp 1 Drop OS QID Metoprolol Succinate ( Xl ) (Metoprolol Succinate) 25 Mg Tab.er.24h 12.5 Mg PO DAILY Lorazepam Intensol (Lorazepam) 2 Mg/1 Ml Oral.conc 0.25 Mg PO DAILY@1400 Glycolax (Polyethylene Glycol 3350) 119 Gm Powder 17 Gm PO DAILY Dorzolamide Hcl 10 Ml Drops 1 Drop LEFTEYE BID Depakote Sprinkle (Divalproex Sodium) 125 Mg Cap.sprink 250 Mg PO HS Milk Of Magnesia (Magnesium Hydroxide) 400 Mg/5 Ml Oral.susp 2,400 Mg PO PRN QHS PRN Mag-Al Plus Xs Suspension (Mag Hydrox/Al Hydrox/Simeth) 30 Ml Oral.susp 15 Ml PO PRN AFTMEALHC PRN Depakote Sprinkle (Divalproex Sodium) 125 Mg Cap.sprink 500 Mg PO DAILY Tylenol (Acetaminophen) 325 Mg Tablet 650 Mg PO PRN Q6HRS PRN Seroquel (Quetiapine Fumarate) 25 Mg Tablet 12.5 Mg PO BID I have reviewed the current psychotropics carefully including drug interactions. Risk benefit ratio favors no change other than as noted in my dictated progress note. Diagnosis: Problems: (1) Dementia with behavioral disturbance (2) Urinary tract infection (3) Anxiety disorder (4) Impulse control disorder (5) Dementia, vascular, with depression (6) Dementia, vascular, with delusions (7) Dementia in Alzheimer's disease with depression (8) Dementia in Alzheimer's disease with delusions SHASHI CRAVEN MD Jul 27, 2017 22:21
[2017-07-28 06:14] VITALS: BP 128/69
--- NOTE | 2017-07-28 06:24 | PN ---
DATE: 07/25/2017 This is a late entry, 07/25/2017, covers the elements not covered in my initial note, 07/25/2017. SUBJECTIVE: I met with the patient in the evening. The patient was quite restless previous evening, did cooperate with shower. The patient has had a better day during the day on 07/25/2017, but in the evening was restless state in the Broda chair. Physical therapy states she can attempt to walk, staff will address this. Received Zyprexa at 4 p.m. for mood lability. REVIEW OF SYSTEMS: Ambulation impaired, in wheelchair. No CV, , pulmonary, eye, ENT system symptoms on review. Reliability poor. MENTAL STATUS EXAM: Oriented to herself. Insight, judgment, recent and remote memory, attention, concentration, fund of knowledge poor, consistent with her diagnosis as mentioned in my initial note. PLAN: Continue current psychotropics. Adjust as indicated. SHASHI CRAVEN MD DR: MINGO/emmanuel JOB#: [id number] / [id number]
[2017-07-28] MEDS: POLYETHYLENE GLYCOL 3350 17 GM PACKET. PO SCH (09:24)
[2017-07-28] MEDS: DIVALPROEX 125 MG CAP.SPRINK PO SCH ×2 (09:24→20:01)
[2017-07-28] MEDS: prednisoLONE ACETATE 1% OPHTH SUSPENSION 5ML BOTTLE. OS SCH ×4 (09:24→20:01)
[2017-07-28] MEDS: METOPROLOL TART IMMED RELEASE 25 MG TABLET PO SCH ×2 (09:24→20:02)
[2017-07-28] MEDS: DORZOLAMIDE 2% OPHTH SOLUTION 10ML BOTTLE. OS SCH ×2 (09:24→20:08)
[2017-07-28] MEDS: QUEtiapine 25 MG TABLET. PO SCH ×2 (09:24→20:02)
[2017-07-28 16:11] VITALS: BP 135/65
[2017-07-28] MEDS: LATANOPROST 0.005% OPHTH SOLUTION 2.5ML BOTTLE. OS SCH (20:08)
--- NOTE | 2017-07-28 21:33 | PDOC ---
Exam Note: Hiram Note: Please also refer to the separate dictated note~for this date of service dictated separately.~Patient seen individually. Discussed the patient with Nursing staff reviewed the chart.~Reviewed interim history and current functioning. Reviewed vital signs,~Labs/ Radiology~and current medications noted below. Continue current treatment with the changes noted in the dictated addendum note Assessment: Vital Signs: Vital Signs Date Time Temp Pulse Resp B/P (MAP) Pulse Ox O2 Delivery O2 Flow Rate FiO2 07/28/17 20:02 61 135/65 07/28/17 16:11 97.6 19 98 07/23/17 06:38 Room Air I&O Intake and Output 07/28/17 07:00 Intake Total 590 ml Output Total 2 ml Balance 588 ml Intake Oral 590 ml Output Urine Total 2 ml # Bowel Movements 2 Current Medications: Meds: Current Medications Haloperidol Lactate (Haldol) 2.5 mg 1X ONCE IM Last administered on 07/16/17 17:15; Start 07/16/17 at 17:15; Stop 07/16/17 at 17:16; Status DC Haloperidol Lactate (Haldol) 5 mg 1X ONCE IM Last administered on 07/16/17at 18 :00; Start 07/16/17 at 18:00; Stop 07/16/17 at 18:10; Status DC Acetaminophen (Tylenol) 650 mg PRN Q6HRS PRN PO PAIN / TEMP Last administered on 07/24/17at 15:56; Start 07/16/17 at 21:15 Multi-Ingredient Ointment (Analgesic [place]) 1 william PRN QID PRN TP MUSCLE PAIN; Start 07/16/17 at 21:15 Al Hydroxide/Mg Hydroxide (Mylanta Plus Xs) 15 ml PRN AFTMEALHC PRN PO DYSPEPSIA; Start 07/16/17 at 21:15 Magnesium Hydroxide (Milk Of Magnesia) 2,400 mg PRN QHS PRN PO CONSTIPATION Last administered on 07/22/17at 21:18; Start 07/16/17 at 21:15 Acetaminophen (Tylenol) 650 mg PRN Q6HRS PRN PO PAIN / TEMP; Start 07/16/17 at 23:15; Status UNV Dorzolamide HCl (Trusopt) 1 drop BID OS Last administered on 07/28/17at 09:24; Start 07/17/17 at 09:00 Latanoprost (Xalatan) 1 drop QHS OS Last administered on 07/27/17at 20:49; Start 07/17/17 at 21:00 Al Hydroxide/Mg Hydroxide (Mylanta Plus Xs) 15 ml PRN AFTMEALHC PRN PO DYSPEPSIA; Start 07/16/17 at 23:15; Status UNV Magnesium Hydroxide (Milk Of Magnesia) 2,400 mg PRN QHS PRN PO CONSTIPATION; Start 07/16/17 at 23:15; Status UNV Metoprolol Succinate (Toprol Xl) 12.5 mg DAILY PO Last administered on 10:37; Start 07/17/17 at 09:00; Stop 07/26/17 at 16:16; Status DC Polyethylene Glycol (miraLAX) 17 gm DAILY PO Last administered on 07/28/17 09: 24; Start 07/17/17 at 09:00 Prednisolone Acetate (Pred Forte) 1 drop QID OS Last administered on 07/28/17 20:01; Start 07/17/17 at 09:00 Divalproex Sodium (Depakote Sprinkles) 250 mg HS PO Last administered on 19:25; Start 07/17/17 at 21:00; Stop 07/19/17 at 19:45; Status DC Divalproex Sodium (Depakote Sprinkles) 500 mg DAILY PO Last administered on 09:24; Start 07/17/17 at 09:00 Lorazepam (Ativan Intensol) 0.25 mg DAILY@1400 PO Last administered on 14:35; Start 07/17/17 at 14:00; Stop 07/18/17 at 18:16; Status DC Quetiapine Fumarate (SEROquel) 12.5 mg BID PO Last administered on 07/28/17 20 :02; Start 07/17/17 at 09:00; Stop 07/29/17 at 09:00 Divalproex Sodium (Depakote Sprinkles) 500 mg HS PO Last administered on 20:01; Start 07/19/17 at 21:00 Olanzapine (ZyPREXA ZYDIS) 1.25 mg PRN Q2HR PRN PO PSYCHOSIS Last administered on 07/28/17at 21:29; Start 07/20/17 at 22:45 Trazodone HCl (Desyrel) 50 mg PRN QHS PRN PO INSOMNIA, MAY REPEAT X1 Last administered on 07/27/17at 00:40; Start 07/20/17 at 22:45 Metoprolol Tartrate (Lopressor) 12.5 mg BID PO Last administered on 07/28/17at 20:02; Start 07/26/17 at 21:00 Quetiapine Fumarate (SEROquel) 12.5 mg 0900,1300,1700 PO ; Start 07/29/17 at 09: 00 Active Scripts Active Reported Xalatan (Latanoprost) 2.5 Ml Drops 1 Drop LEFTEYE QHS Pred Forte (Prednisolone Acetate) 1 Ml Drops.susp 1 Drop OS QID Metoprolol Succinate ( Xl ) (Metoprolol Succinate) 25 Mg Tab.er.24h 12.5 Mg PO DAILY Lorazepam Intensol (Lorazepam) 2 Mg/1 Ml Oral.conc 0.25 Mg PO DAILY@1400 Glycolax (Polyethylene Glycol 3350) 119 Gm Powder 17 Gm PO DAILY Dorzolamide Hcl 10 Ml Drops 1 Drop LEFTEYE BID Depakote Sprinkle (Divalproex Sodium) 125 Mg Cap.sprink 250 Mg PO HS Milk Of Magnesia (Magnesium Hydroxide) 400 Mg/5 Ml Oral.susp 2,400 Mg PO PRN QHS PRN Mag-Al Plus Xs Suspension (Mag Hydrox/Al Hydrox/Simeth) 30 Ml Oral.susp 15 Ml PO PRN AFTMEALHC PRN Depakote Sprinkle (Divalproex Sodium) 125 Mg Cap.sprink 500 Mg PO DAILY Tylenol (Acetaminophen) 325 Mg Tablet 650 Mg PO PRN Q6HRS PRN Seroquel (Quetiapine Fumarate) 25 Mg Tablet 12.5 Mg PO BID I have reviewed the current psychotropics carefully including drug interactions. Risk benefit ratio favors no change other than as noted in my dictated progress note. 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
[2017-07-28] MEDS: traZODone 50 MG TABLET. PO PRN ×2 (22:00→23:45)
--- NOTE | 2017-07-29 02:58 | PN ---
DATE: 07/26/2017 This is a late entry for 07/26/2017 covers elements not covered in my initial note of 07/26/2017. SUBJECTIVE: I met with the patient in the evening. The patient slept 6-3/4 hours previous evening, anxious, restless, confused, tired, trying to crawl out of bed, received Zyprexa at 10:30. REVIEW OF SYSTEMS: No CV, , pulmonary, eye, ENT system symptoms on review. Gait unsteady. Reliability poor. MENTAL STATUS EXAM: Oriented to herself. Insight, judgment, recent and remote memory, attention, concentration, fund of knowledge poor, consistent with her diagnosis mentioned in my initial note. PLAN: Continue psychotropics mentioned in my initial note. MAN April CRAVEN MD DR: MINGO/emmanuel JOB#: [id number] / [id number]
--- NOTE | 2017-07-29 04:35 | PN ---
DATE: PSYCHIATRIC PROGRESS NOTE DATE OF SERVICE: 07/27/2017 This late entry 07/27/2017 covers elements not covered in my initial note of 07/27/2017. SUBJECTIVE: I met with the patient in the evening. The patient slept 3-1/2 hours previous evening. She had frequent bowel movements the night before. Slept during the day off and on, less agitated, certainly confused. REVIEW OF SYSTEMS: Ambulation impaired, in wheelchair. No CV, , pulmonary, eye, ENT system symptoms on review. Reliability poor. MENTAL STATUS EXAM: Oriented to herself. Insight, judgment, recent and remote memory, attention, concentration, fund of knowledge poor, consistent with her diagnosis mentioned in my initial note. PLAN: No change from initial note. MAN April CRAVEN MD DR: MINGO/emmanuel JOB#: [id number] / [id number]
[2017-07-29 07:53] VITALS: BP 120/65
[2017-07-29] MEDS: DIVALPROEX 125 MG CAP.SPRINK PO SCH ×2 (08:20→19:31)
[2017-07-29] MEDS: POLYETHYLENE GLYCOL 3350 17 GM PACKET. PO SCH (08:20)
[2017-07-29] MEDS: prednisoLONE ACETATE 1% OPHTH SUSPENSION 5ML BOTTLE. OS SCH ×4 (08:20→19:32)
[2017-07-29] MEDS: DORZOLAMIDE 2% OPHTH SOLUTION 10ML BOTTLE. OS SCH ×2 (08:20→19:32)
[2017-07-29] MEDS: METOPROLOL TART IMMED RELEASE 25 MG TABLET PO SCH ×2 (08:21→19:31)
[2017-07-29] MEDS: QUEtiapine 25 MG TABLET. PO SCH ×4 (08:21→17:22)
[2017-07-29 15:55] VITALS: BP 132/63
[2017-07-29] MEDS: traZODone 50 MG TABLET. PO PRN (19:31)
[2017-07-29] MEDS: MIRTAZAPINE 7.5 MG TABLET. PO SCH (19:32)
[2017-07-29] MEDS: LATANOPROST 0.005% OPHTH SOLUTION 2.5ML BOTTLE. OS SCH (19:32)
--- NOTE | 2017-07-29 21:29 | PDOC ---
Exam Note: Hiram Note: Please also refer to the separate dictated note~for this date of service dictated separately.~Patient seen individually. Discussed the patient with Nursing staff reviewed the chart.~Reviewed interim history and current functioning. Reviewed vital signs,~Labs/ Radiology~and current medications noted below. Continue current treatment with the changes noted in the dictated addendum note Assessment: Vital Signs: Vital Signs Date Time Temp Pulse Resp B/P (MAP) Pulse Ox O2 Delivery O2 Flow Rate FiO2 07/29/17 19:31 58 132/63 07/29/17 15:55 97.5 18 95 I&O Intake and Output 07/29/17 07:00 Intake Total 720 ml Balance 720 ml Intake Oral 720 ml # Voids 1 Current Medications: Meds: Current Medications Haloperidol Lactate (Haldol) 2.5 mg 1X ONCE IM Last administered on 07/16/17at 17:15; Start 07/16/17 at 17:15; Stop 07/16/17 at 17:16; Status DC Haloperidol Lactate (Haldol) 5 mg 1X ONCE IM Last administered on 07/16/17at 18 :00; Start 07/16/17 at 18:00; Stop 07/16/17 at 18:10; Status DC Acetaminophen (Tylenol) 650 mg PRN Q6HRS PRN PO PAIN / TEMP Last administered on 07/24/17at 15:56; Start 07/16/17 at 21:15 Multi-Ingredient Ointment (Analgesic [place]) 1 william PRN QID PRN TP MUSCLE PAIN; Start 07/16/17 at 21:15 Al Hydroxide/Mg Hydroxide (Mylanta Plus Xs) 15 ml PRN AFTMEALHC PRN PO DYSPEPSIA; Start 07/16/17 at 21:15 Magnesium Hydroxide (Milk Of Magnesia) 2,400 mg PRN QHS PRN PO CONSTIPATION Last administered on 07/22/17at 21:18; Start 07/16/17 at 21:15 Acetaminophen (Tylenol) 650 mg PRN Q6HRS PRN PO PAIN / TEMP; Start 07/16/17 at 23:15; Status UNV Dorzolamide HCl (Trusopt) 1 drop BID OS Last administered on 07/29/17at 19:32; Start 07/17/17 at 09:00 Latanoprost (Xalatan) 1 drop QHS OS Last administered on 07/29/17 19:32; Start 07/17/17 at 21:00 Al Hydroxide/Mg Hydroxide (Mylanta Plus Xs) 15 ml PRN AFTMEALHC PRN PO DYSPEPSIA; Start 07/16/17 at 23:15; Status UNV Magnesium Hydroxide (Milk Of Magnesia) 2,400 mg PRN QHS PRN PO CONSTIPATION; Start 07/16/17 at 23:15; Status UNV Metoprolol Succinate (Toprol Xl) 12.5 mg DAILY PO Last administered on at 10:37; Start 07/17/17 at 09:00; Stop 07/26/17 at 16:16; Status DC Polyethylene Glycol (miraLAX) 17 gm DAILY PO Last administered on 07/29/17 08: 20; Start 07/17/17 at 09:00 Prednisolone Acetate (Pred Forte) 1 drop QID OS Last administered on 07/29/17 19:32; Start 07/17/17 at 09:00 Divalproex Sodium (Depakote Sprinkles) 250 mg HS PO Last administered on 19:25; Start 07/17/17 at 21:00; Stop 07/19/17 at 19:45; Status DC Divalproex Sodium (Depakote Sprinkles) 500 mg DAILY PO Last administered on 07/29 08:20; Start 07/17/17 at 09:00 Lorazepam (Ativan Intensol) 0.25 mg DAILY@1400 PO Last administered on 14:35; Start 07/17/17 at 14:00; Stop 07/18/17 at 18:16; Status DC Quetiapine Fumarate (SEROquel) 12.5 mg BID PO Last administered on 07/29/17 08: 21; Start 07/17/17 at 09:00; Stop 07/29/17 at 09:00; Status DC Divalproex Sodium (Depakote Sprinkles) 500 mg HS PO Last administered on 19:31; Start 07/19/17 at 21:00 Olanzapine (ZyPREXA ZYDIS) 1.25 mg PRN Q2HR PRN PO PSYCHOSIS Last administered on 07/28/17 21:29; Start 07/20/17 at 22:45 Trazodone HCl (Desyrel) 50 mg PRN QHS PRN PO INSOMNIA, MAY REPEAT X1 Last administered on 07/29/17at 19:31; Start 07/20/17 at 22:45 Metoprolol Tartrate (Lopressor) 12.5 mg BID PO Last administered on 07/29/17at 19 :31; Start 07/26/17 at 21:00 Quetiapine Fumarate (SEROquel) 12.5 mg 0900,1300,1700 PO Last administered on at 17:22; Start 07/29/17 at 09:00 Mirtazapine (Remeron) 7.5 mg QHS PO Last administered on 07/29/17at 19:32; Start 07/29/17 at 21:00 Active Scripts Active Reported Xalatan (Latanoprost) 2.5 Ml Drops 1 Drop LEFTEYE QHS Pred Forte (Prednisolone Acetate) 1 Ml Drops.susp 1 Drop OS QID Metoprolol Succinate ( Xl ) (Metoprolol Succinate) 25 Mg Tab.er.24h 12.5 Mg PO DAILY Lorazepam Intensol (Lorazepam) 2 Mg/1 Ml Oral.conc 0.25 Mg PO DAILY@1400 Glycolax (Polyethylene Glycol 3350) 119 Gm Powder 17 Gm PO DAILY Dorzolamide Hcl 10 Ml Drops 1 Drop LEFTEYE BID Depakote Sprinkle (Divalproex Sodium) 125 Mg Cap.sprink 250 Mg PO HS Milk Of Magnesia (Magnesium Hydroxide) 400 Mg/5 Ml Oral.susp 2,400 Mg PO PRN QHS PRN Mag-Al Plus Xs Suspension (Mag Hydrox/Al Hydrox/Simeth) 30 Ml Oral.susp 15 Ml PO PRN AFTMEALHC PRN Depakote Sprinkle (Divalproex Sodium) 125 Mg Cap.sprink 500 Mg PO DAILY Tylenol (Acetaminophen) 325 Mg Tablet 650 Mg PO PRN Q6HRS PRN Seroquel (Quetiapine Fumarate) 25 Mg Tablet 12.5 Mg PO BID I have reviewed the current psychotropics carefully including drug interactions. Risk benefit ratio favors no change other than as noted in my dictated progress note. Diagnosis: Problems: (1) Dementia with behavioral disturbance (2) Urinary tract infection (3) Anxiety disorder (4) Impulse control disorder (5) Dementia, vascular, with depression (6) Dementia, vascular, with delusions (7) Dementia in Alzheimer's disease with depression (8) Dementia in Alzheimer's disease with delusions SHASHI CRAVEN MD July 29, 2017 21:29
[2017-07-30 06:25] VITALS: BP 174/72
[2017-07-30] MEDS: QUEtiapine 25 MG TABLET. PO SCH ×3 (07:59→17:54)
[2017-07-30] MEDS: DIVALPROEX 125 MG CAP.SPRINK PO SCH ×2 (07:59→20:52)
[2017-07-30] MEDS: METOPROLOL TART IMMED RELEASE 25 MG TABLET PO SCH ×2 (07:59→20:52)
[2017-07-30] MEDS: POLYETHYLENE GLYCOL 3350 17 GM PACKET. PO SCH (07:59)
[2017-07-30] MEDS: prednisoLONE ACETATE 1% OPHTH SUSPENSION 5ML BOTTLE. OS SCH ×4 (08:00→20:52)
[2017-07-30] MEDS: DORZOLAMIDE 2% OPHTH SOLUTION 10ML BOTTLE. OS SCH ×2 (08:00→20:52)
--- NOTE | 2017-07-30 09:48 | PN ---
DATE: 07/28/2017 This is a late entry, 07/28/2017, covers the elements not covered in my initial note, 07/28/2017. SUBJECTIVE: I met with the patient in the evening. The patient slept 7-1/2 hours, was agitated around 2 p.m., then had dinner, received Zyprexa at 1400, 1700, then did better. Combative with cares after dinner. REVIEW OF SYSTEMS: Ambulation impaired in a wheelchair. No CV, , pulmonary, eye, ENT system symptoms on review. Reliability poor. MENTAL STATUS EXAM: Oriented to herself. Insight, judgment, recent and remote memory, attention, concentration, fund of knowledge poor, consistent with her diagnosis as mentioned in my initial note. PLAN: Increase Seroquel from 12.5 mg twice a day to 12.5 mg at 9 a.m., 1 p.m., and 5 p.m. Rest unchanged from initial note. MAN April CRAVEN MD DR: MINGO/emmanuel JOB#: [id number] / [id number]
[2017-07-30 16:45] VITALS: BP 142/56
--- NOTE | 2017-07-30 20:50 | PDOC ---
Exam Note: Hiram Note: Please also refer to the separate dictated note~for this date of service dictated separately.~Patient seen individually. Discussed the patient with Nursing staff reviewed the chart.~Reviewed interim history and current functioning. Reviewed vital signs,~Labs/ Radiology~and current medications noted below. Continue current treatment with the changes noted in the dictated addendum note Assessment: Vital Signs: Vital Signs Date Time Temp Pulse Resp B/P (MAP) Pulse Ox O2 Delivery O2 Flow Rate FiO2 07/30/17 16:45 97.1 62 18 142/56 (84) 96 I&O Intake and Output 07/30/17 07:00 Intake Total 800 ml Balance 800 ml Intake Oral 800 ml # Voids 2 # Bowel Movements 1 Current Medications: Meds: Current Medications Haloperidol Lactate (Haldol) 2.5 mg 1X ONCE IM Last administered on 07/16/17at 17:15; Start 07/16/17 at 17:15; Stop 07/16/17 at 17:16; Status DC Haloperidol Lactate (Haldol) 5 mg 1X ONCE IM Last administered on 07/16/17at 18 :00; Start 07/16/17 at 18:00; Stop 07/16/17 at 18:10; Status DC Acetaminophen (Tylenol) 650 mg PRN Q6HRS PRN PO PAIN / TEMP Last administered on 07/24/17at 15:56; Start 07/16/17 at 21:15 Multi-Ingredient Ointment (Analgesic [place]) 1 william PRN QID PRN TP MUSCLE PAIN; Start 07/16/17 at 21:15 Al Hydroxide/Mg Hydroxide (Mylanta Plus Xs) 15 ml PRN AFTMEALHC PRN PO DYSPEPSIA; Start 07/16/17 at 21:15 Magnesium Hydroxide (Milk Of Magnesia) 2,400 mg PRN QHS PRN PO CONSTIPATION Last administered on 07/22/17at 21:18; Start 07/16/17 at 21:15 Acetaminophen (Tylenol) 650 mg PRN Q6HRS PRN PO PAIN / TEMP; Start 07/16/17 at 23:15; Status UNV Dorzolamide HCl (Trusopt) 1 drop BID OS Last administered on 07/30/17at 08:00; Start 07/17/17 at 09:00 Latanoprost (Xalatan) 1 drop QHS OS Last administered on 07/29/17 19:32; Start 07/17/17 at 21:00 Al Hydroxide/Mg Hydroxide (Mylanta Plus Xs) 15 ml PRN AFTMEALHC PRN PO DYSPEPSIA; Start 07/16/17 at 23:15; Status UNV Magnesium Hydroxide (Milk Of Magnesia) 2,400 mg PRN QHS PRN PO CONSTIPATION; Start 07/16/17 at 23:15; Status UNV Metoprolol Succinate (Toprol Xl) 12.5 mg DAILY PO Last administered on at 10:37; Start 07/17/17 at 09:00; Stop 07/26/17 at 16:16; Status DC Polyethylene Glycol (miraLAX) 17 gm DAILY PO Last administered on 07/30/17 07: 59; Start 07/17/17 at 09:00 Prednisolone Acetate (Pred Forte) 1 drop QID OS Last administered on 07/30/17 17:54; Start 07/17/17 at 09:00 Divalproex Sodium (Depakote Sprinkles) 250 mg HS PO Last administered on 19:25; Start 07/17/17 at 21:00; Stop 07/19/17 at 19:45; Status DC Divalproex Sodium (Depakote Sprinkles) 500 mg DAILY PO Last administered on 07/30 07:59; Start 07/17/17 at 09:00 Lorazepam (Ativan Intensol) 0.25 mg DAILY@1400 PO Last administered on 14:35; Start 07/17/17 at 14:00; Stop 07/18/17 at 18:16; Status DC Quetiapine Fumarate (SEROquel) 12.5 mg BID PO Last administered on 07/29/17 08: 21; Start 07/17/17 at 09:00; Stop 07/29/17 at 09:00; Status DC Divalproex Sodium (Depakote Sprinkles) 500 mg HS PO Last administered on 19:31; Start 07/19/17 at 21:00 Olanzapine (ZyPREXA ZYDIS) 1.25 mg PRN Q2HR PRN PO PSYCHOSIS Last administered on 07/28/17 21:29; Start 07/20/17 at 22:45 Trazodone HCl (Desyrel) 50 mg PRN QHS PRN PO INSOMNIA, MAY REPEAT X1 Last administered on 07/29/17at 19:31; Start 07/20/17 at 22:45 Metoprolol Tartrate (Lopressor) 12.5 mg BID PO Last administered on 07/30/17at 07 :59; Start 07/26/17 at 21:00 Quetiapine Fumarate (SEROquel) 12.5 mg 0900,1300,1700 PO Last administered on at 17:54; Start 07/29/17 at 09:00 Mirtazapine (Remeron) 7.5 mg QHS PO Last administered on 07/29/17at 19:32; Start 07/29/17 at 21:00 Active Scripts Active Reported Xalatan (Latanoprost) 2.5 Ml Drops 1 Drop LEFTEYE QHS Pred Forte (Prednisolone Acetate) 1 Ml Drops.susp 1 Drop OS QID Metoprolol Succinate ( Xl ) (Metoprolol Succinate) 25 Mg Tab.er.24h 12.5 Mg PO DAILY Lorazepam Intensol (Lorazepam) 2 Mg/1 Ml Oral.conc 0.25 Mg PO DAILY@1400 Glycolax (Polyethylene Glycol 3350) 119 Gm Powder 17 Gm PO DAILY Dorzolamide Hcl 10 Ml Drops 1 Drop LEFTEYE BID Depakote Sprinkle (Divalproex Sodium) 125 Mg Cap.sprink 250 Mg PO HS Milk Of Magnesia (Magnesium Hydroxide) 400 Mg/5 Ml Oral.susp 2,400 Mg PO PRN QHS PRN Mag-Al Plus Xs Suspension (Mag Hydrox/Al Hydrox/Simeth) 30 Ml Oral.susp 15 Ml PO PRN AFTMEALHC PRN Depakote Sprinkle (Divalproex Sodium) 125 Mg Cap.sprink 500 Mg PO DAILY Tylenol (Acetaminophen) 325 Mg Tablet 650 Mg PO PRN Q6HRS PRN Seroquel (Quetiapine Fumarate) 25 Mg Tablet 12.5 Mg PO BID I have reviewed the current psychotropics carefully including drug interactions. Risk benefit ratio favors no change other than as noted in my dictated progress note. Diagnosis: Problems: (1) Dementia with behavioral disturbance (2) Urinary tract infection (3) Anxiety disorder (4) Impulse control disorder (5) Dementia, vascular, with depression (6) Dementia, vascular, with delusions (7) Dementia in Alzheimer's disease with depression (8) Dementia in Alzheimer's disease with delusions SHASHI CRAVEN MD July 30, 2017 20:50
[2017-07-30] MEDS: MIRTAZAPINE 7.5 MG TABLET. PO SCH (20:51)
[2017-07-30] MEDS: LATANOPROST 0.005% OPHTH SOLUTION 2.5ML BOTTLE. OS SCH (20:53)
[2017-07-30] MEDS: traZODone 50 MG TABLET. PO PRN (21:55)
[2017-07-31] MEDS: traZODone 50 MG TABLET. PO PRN (01:30)
[2017-07-31 05:32] VITALS: BP 154/55
[2017-07-31] MEDS: QUEtiapine 25 MG TABLET. PO SCH ×3 (07:34→17:16)
[2017-07-31] MEDS: DIVALPROEX 125 MG CAP.SPRINK PO SCH ×2 (07:34→19:33)
[2017-07-31] MEDS: POLYETHYLENE GLYCOL 3350 17 GM PACKET. PO SCH (07:34)
[2017-07-31] MEDS: METOPROLOL TART IMMED RELEASE 25 MG TABLET PO SCH ×2 (07:34→19:34)
[2017-07-31] MEDS: prednisoLONE ACETATE 1% OPHTH SUSPENSION 5ML BOTTLE. OS SCH ×4 (07:35→19:32)
[2017-07-31] MEDS: DORZOLAMIDE 2% OPHTH SOLUTION 10ML BOTTLE. OS SCH ×2 (07:35→19:33)
[2017-07-31 07:48] LABS: ALBUMIN 2.9 g/dL (3.4-5.0); ALBUMIN/GLOBULIN RATIO 0.8 (1.0-1.7); BASO % 1 % (0-3); CALCIUM 8.4 mg/dL (8.5-10.1); CREATININE 1.5 mg/dL (0.6-1.0); EOS # 0.1 x10^3/uL (0.0-0.7); EOS % 2 % (0-3); GFR 32.9; HEMATOCRIT 41.5 % (36.0-47.0); HEMOGLOBIN 13.8 g/dL (12.0-15.5); LYMPH # 1.8 x10^3/uL (1.0-4.8); LYMPH % 34 % (24-48); MAGNESIUM 2.3 mg/dL (1.8-2.4); MEAN CORPUSCULAR HEMOGLOBIN 30 pg (25-35); MEAN CORPUSCULAR HGB CONC 33 g/dL (31-37); MEAN CORPUSCULAR VOLUME 89 fL (79-100); MONO # 0.8 x10^3/uL (0.0-1.1); MONO % 14 % (0-9); NEUT # 2.6 x10^3uL (1.8-7.7); NEUT % 49 % (31-73); PLATELET COUNT 174 x10^3/uL (140-400); RED BLOOD COUNT 4.67 x10^6/uL (3.50-5.40); RED CELL DISTRIBUTION WIDTH 14.2 % (11.5-14.5); TOTAL BILIRUBIN 0.3 mg/dL (0.2-1.0); TOTAL PROTEIN 6.4 g/dL (6.4-8.2); WHITE BLOOD COUNT 5.3 x10^3/uL (4.0-11.0)
--- NOTE | 2017-07-31 09:29 | PN ---
DATE: 07/29/2017 This late entry 07/29/2017 covers elements not covered in my initial note 07/29/2017. I met with the patient in the evening. The patient slept 2 hours previous evening, somewhat sedated during the day because she had not slept well previous night, otherwise confused. REVIEW OF SYSTEMS: No CV, , pulmonary, eye system symptoms on review. Gait unsteady in Broda chair. MENTAL STATUS EXAM: Oriented to herself. Insight, judgment, recent and remote memory, attention, concentration, fund of knowledge poor, consistent with her diagnosis mentioned in my initial note. IMPRESSION: Unchanged from initial note. PLAN: Start Remeron 7.5 mg at bedtime to help with insomnia and hopefully this would help with the daytime tiredness as well. Rest unchanged. MAN April CRAVEN MD DR: MINGO/emmanuel JOB#: [id number] / [id number]
[2017-07-31 16:17] VITALS: BP 129/75
[2017-07-31] MEDS: LATANOPROST 0.005% OPHTH SOLUTION 2.5ML BOTTLE. OS SCH (19:33)
[2017-07-31] MEDS: MIRTAZAPINE 7.5 MG TABLET. PO SCH (19:34)
--- NOTE | 2017-07-31 20:58 | PDOC ---
Exam Note: Hiram Note: Please also refer to the separate dictated note~for this date of service dictated separately.~Patient seen individually. Discussed the patient with Nursing staff reviewed the chart.~Reviewed interim history and current functioning. Reviewed vital signs,~Labs/ Radiology~and current medications noted below. Continue current treatment with the changes noted in the dictated addendum note Assessment: Vital Signs: Vital Signs Date Time Temp Pulse Resp B/P (MAP) Pulse Ox O2 Delivery O2 Flow Rate FiO2 07/31/17 19:34 81 129/75 07/31/17 16:17 97.4 20 95 I&O Intake and Output 07/31/17 07:00 Intake Total 440 ml Balance 440 ml Intake Oral 440 ml Labs: Laboratory Tests Test 07/31/17 07:29 White Blood Count 5.3 x10^3/uL (4.0-11.0) Red Blood Count 4.67 x10^6/uL (3.50-5.40) Hemoglobin 13.8 g/dL (12.0-15.5) Hematocrit 41.5 % (36.0-47.0) Mean Corpuscular Volume 89 fL (79-100) Mean Corpuscular Hemoglobin 30 pg (25-35) Mean Corpuscular Hemoglobin Concent 33 g/dL (31-37) Red Cell Distribution Width 14.2 % (11.5-14.5) Platelet Count 174 x10^3/uL (140-400) Neutrophils (%) (Auto) 49 % (31-73) Lymphocytes (%) (Auto) 34 % (24-48) Monocytes (%) (Auto) 14 % (0-9) H Eosinophils (%) (Auto) 2 % (0-3) Basophils (%) (Auto) 1 % (0-3) Neutrophils # (Auto) 2.6 x10^3uL (1.8-7.7) Lymphocytes # (Auto) 1.8 x10^3/uL (1.0-4.8) Monocytes # (Auto) 0.8 x10^3/uL (0.0-1.1) Eosinophils # (Auto) 0.1 x10^3/uL (0.0-0.7) Basophils # (Auto) 0.0 x10^3/uL (0.0-0.2) Sodium Level 143 mmol/L (136-145) Potassium Level 4.0 mmol/L (3.5-5.1) Chloride Level 111 mmol/L (98-107) H Carbon Dioxide Level 25 mmol/L (21-32) Anion Gap 7 (6-14) Blood Urea Nitrogen 39 mg/dL (7-20) H Creatinine 1.5 mg/dL (0.6-1.0) H Estimated GFR (Cockcroft-Gault) 32.9 BUN/Creatinine Ratio 26 (6-20) H Glucose Level 105 mg/dL (70-99) H Calcium Level 8.4 mg/dL (8.5-10.1) L Magnesium Level 2.3 mg/dL (1.8-2.4) Total Bilirubin 0.3 mg/dL (0.2-1.0) Aspartate Amino Transferase (AST) 12 U/L (15-37) L Alanine Aminotransferase (ALT) 16 U/L (14-59) Alkaline Phosphatase 77 U/L (46-116) Total Protein 6.4 g/dL (6.4-8.2) Albumin 2.9 g/dL (3.4-5.0) L Albumin/Globulin Ratio 0.8 (1.0-1.7) L Current Medications: Meds: Current Medications Haloperidol Lactate (Haldol) 2.5 mg 1X ONCE IM Last administered on 07/16/17at 17:15; Start 07/16/17 at 17:15; Stop 07/16/17 at 17:16; Status DC Haloperidol Lactate (Haldol) 5 mg 1X ONCE IM Last administered on 07/16/17at 18 :00; Start 07/16/17 at 18:00; Stop 07/16/17 at 18:10; Status DC Acetaminophen (Tylenol) 650 mg PRN Q6HRS PRN PO PAIN / TEMP Last administered on 07/24/17at 15:56; Start 07/16/17 at 21:15 Multi-Ingredient Ointment (Analgesic [place]) 1 william PRN QID PRN TP MUSCLE PAIN; Start 07/16/17 at 21:15 Al Hydroxide/Mg Hydroxide (Mylanta Plus Xs) 15 ml PRN AFTMEALHC PRN PO DYSPEPSIA; Start 07/16/17 at 21:15 Magnesium Hydroxide (Milk Of Magnesia) 2,400 mg PRN QHS PRN PO CONSTIPATION Last administered on 07/22/17 21:18; Start 07/16/17 at 21:15 Acetaminophen (Tylenol) 650 mg PRN Q6HRS PRN PO PAIN / TEMP; Start 07/16/17 at 23:15; Status UNV Dorzolamide HCl (Trusopt) 1 drop BID OS Last administered on 07/31/17 19:33; Start 07/17/17 at 09:00 Latanoprost (Xalatan) 1 drop QHS OS Last administered on 07/31/17 19:33; Start 07/17/17 at 21:00 Al Hydroxide/Mg Hydroxide (Mylanta Plus Xs) 15 ml PRN AFTMEALHC PRN PO DYSPEPSIA; Start 07/16/17 at 23:15; Status UNV Magnesium Hydroxide (Milk Of Magnesia) 2,400 mg PRN QHS PRN PO CONSTIPATION; Start 07/16/17 at 23:15; Status UNV Metoprolol Succinate (Toprol Xl) 12.5 mg DAILY PO Last administered on 10:37; Start 07/17/17 at 09:00; Stop 07/26/17 at 16:16; Status DC Polyethylene Glycol (miraLAX) 17 gm DAILY PO Last administered on 07/31/17 07: 34; Start 07/17/17 at 09:00 Prednisolone Acetate (Pred Forte) 1 drop QID OS Last administered on 07/31/17 19:32; Start 07/17/17 at 09:00 Divalproex Sodium (Depakote Sprinkles) 250 mg HS PO Last administered on 19:25; Start 07/17/17 at 21:00; Stop 07/19/17 at 19:45; Status DC Divalproex Sodium (Depakote Sprinkles) 500 mg DAILY PO Last administered on 07/31 07:34; Start 07/17/17 at 09:00; Stop 07/31/17 at 18:25; Status DC Lorazepam (Ativan Intensol) 0.25 mg DAILY@1400 PO Last administered on 14:35; Start 07/17/17 at 14:00; Stop 07/18/17 at 18:16; Status DC Quetiapine Fumarate (SEROquel) 12.5 mg BID PO Last administered on 07/29/17 08: 21; Start 07/17/17 at 09:00; Stop 07/29/17 at 09:00; Status DC Divalproex Sodium (Depakote Sprinkles) 500 mg HS PO Last administered on at 20:52; Start 07/19/17 at 21:00; Stop 07/31/17 at 18:25; Status DC Olanzapine (ZyPREXA ZYDIS) 1.25 mg PRN Q2HR PRN PO PSYCHOSIS Last administered on 07/31/17 03:23; Start 07/20/17 at 22:45 Trazodone HCl (Desyrel) 50 mg PRN QHS PRN PO INSOMNIA, MAY REPEAT X1 Last administered on 07/31/17 01:30; Start 07/20/17 at 22:45 Metoprolol Tartrate (Lopressor) 12.5 mg BID PO Last administered on 07/31/17 19 :34; Start 07/26/17 at 21:00 Quetiapine Fumarate (SEROquel) 12.5 mg 0900,1300,1700 PO Last administered on 17:16; Start 07/29/17 at 09:00 Mirtazapine (Remeron) 7.5 mg QHS PO Last administered on 07/31/17 19:34; Start 07/29/17 at 21:00 Divalproex Sodium (Depakote Sprinkles) 250 mg DAILY PO ; Start 08/01/17 at 09:00 Divalproex Sodium (Depakote Sprinkles) 750 mg HS PO Last administered on 19:33; Start 07/31/17 at 21:00 Active Scripts Active Reported Xalatan (Latanoprost) 2.5 Ml Drops 1 Drop LEFTEYE QHS Pred Forte (Prednisolone Acetate) 1 Ml Drops.susp 1 Drop OS QID Metoprolol Succinate ( Xl ) (Metoprolol Succinate) 25 Mg Tab.er.24h 12.5 Mg PO DAILY Lorazepam Intensol (Lorazepam) 2 Mg/1 Ml Oral.conc 0.25 Mg PO DAILY@1400 Glycolax (Polyethylene Glycol 3350) 119 Gm Powder 17 Gm PO DAILY Dorzolamide Hcl 10 Ml Drops 1 Drop LEFTEYE BID Depakote Sprinkle (Divalproex Sodium) 125 Mg Cap.sprink 250 Mg PO HS Milk Of Magnesia (Magnesium Hydroxide) 400 Mg/5 Ml Oral.susp 2,400 Mg PO PRN QHS PRN Mag-Al Plus Xs Suspension (Mag Hydrox/Al Hydrox/Simeth) 30 Ml Oral.susp 15 Ml PO PRN AFTMEALHC PRN Depakote Sprinkle (Divalproex Sodium) 125 Mg Cap.sprink 500 Mg PO DAILY Tylenol (Acetaminophen) 325 Mg Tablet 650 Mg PO PRN Q6HRS PRN Seroquel (Quetiapine Fumarate) 25 Mg Tablet 12.5 Mg PO BID I have reviewed the current psychotropics carefully including drug interactions. Risk benefit ratio favors no change other than as noted in my dictated progress note. 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
[2017-08-01 05:56] VITALS: BP 176/76
[2017-08-01 08:08] VITALS: BP 146/83
[2017-08-01] MEDS: POLYETHYLENE GLYCOL 3350 17 GM PACKET. PO SCH (08:22)
[2017-08-01] MEDS: QUEtiapine 25 MG TABLET. PO SCH ×3 (08:22→16:52)
[2017-08-01] MEDS: CHOLECALCIFEROL (VITAMIN D3) 50,000 UNIT CAPSULE PO SCH (08:24)
[2017-08-01] MEDS: DORZOLAMIDE 2% OPHTH SOLUTION 10ML BOTTLE. OS SCH ×3 (08:24→19:42)
[2017-08-01] MEDS: prednisoLONE ACETATE 1% OPHTH SUSPENSION 5ML BOTTLE. OS SCH ×4 (08:24→19:42)
[2017-08-01] MEDS: DIVALPROEX 125 MG CAP.SPRINK PO SCH ×2 (08:24→19:40)
[2017-08-01] MEDS: METOPROLOL TART IMMED RELEASE 25 MG TABLET PO SCH ×2 (08:25→19:41)
[2017-08-01 15:50] VITALS: BP 118/62
[2017-08-01] MEDS: MIRTAZAPINE 7.5 MG TABLET. PO SCH (19:40)
[2017-08-01] MEDS: traZODone 50 MG TABLET. PO PRN (19:42)
[2017-08-01] MEDS: LATANOPROST 0.005% OPHTH SOLUTION 2.5ML BOTTLE. OS SCH (19:42)
--- NOTE | 2017-08-01 20:57 | PDOC ---
Exam Note: Hiram Note: Please also refer to the separate dictated note~for this date of service dictated separately.~Patient seen individually. Discussed the patient with Nursing staff reviewed the chart.~Reviewed interim history and current functioning. Reviewed vital signs,~Labs/ Radiology~and current medications noted below. Continue current treatment with the changes noted in the dictated addendum note Assessment: Vital Signs: Vital Signs Date Time Temp Pulse Resp B/P (MAP) Pulse Ox O2 Delivery O2 Flow Rate FiO2 08/01/17 19:41 62 118/62 08/01/17 15:50 97.1 18 95 I&O Intake and Output 08/01/17 07:00 Intake Total 600 ml Balance 600 ml Intake Oral 600 ml # Bowel Movements 1 Current Medications: Meds: Current Medications Haloperidol Lactate (Haldol) 2.5 mg 1X ONCE IM Last administered on 07/16/17 17:15; Start 07/16/17 at 17:15; Stop 07/16/17 at 17:16; Status DC Haloperidol Lactate (Haldol) 5 mg 1X ONCE IM Last administered on 07/16/17at 18 :00; Start 07/16/17 at 18:00; Stop 07/16/17 at 18:10; Status DC Acetaminophen (Tylenol) 650 mg PRN Q6HRS PRN PO PAIN / TEMP Last administered on 07/24/17at 15:56; Start 07/16/17 at 21:15 Multi-Ingredient Ointment (Analgesic [place]) 1 william PRN QID PRN TP MUSCLE PAIN; Start 07/16/17 at 21:15 Al Hydroxide/Mg Hydroxide (Mylanta Plus Xs) 15 ml PRN AFTMEALHC PRN PO DYSPEPSIA; Start 07/16/17 at 21:15 Magnesium Hydroxide (Milk Of Magnesia) 2,400 mg PRN QHS PRN PO CONSTIPATION Last administered on 07/22/17at 21:18; Start 07/16/17 at 21:15 Acetaminophen (Tylenol) 650 mg PRN Q6HRS PRN PO PAIN / TEMP; Start 07/16/17 at 23:15; Status UNV Dorzolamide HCl (Trusopt) 1 drop BID OS Last administered on 08/01/17at 19:42; Start 07/17/17 at 09:00 Latanoprost (Xalatan) 1 drop QHS OS Last administered on 08/01/17 19:42; Start 07/17/17 at 21:00 Al Hydroxide/Mg Hydroxide (Mylanta Plus Xs) 15 ml PRN AFTMEALHC PRN PO DYSPEPSIA; Start 07/16/17 at 23:15; Status UNV Magnesium Hydroxide (Milk Of Magnesia) 2,400 mg PRN QHS PRN PO CONSTIPATION; Start 07/16/17 at 23:15; Status UNV Metoprolol Succinate (Toprol Xl) 12.5 mg DAILY PO Last administered on 10:37; Start 07/17/17 at 09:00; Stop 07/26/17 at 16:16; Status DC Polyethylene Glycol (miraLAX) 17 gm DAILY PO Last administered on 08/01/17 08: 22; Start 07/17/17 at 09:00 Prednisolone Acetate (Pred Forte) 1 drop QID OS Last administered on 08/01/17 19:42; Start 07/17/17 at 09:00 Divalproex Sodium (Depakote Sprinkles) 250 mg HS PO Last administered on 19:25; Start 07/17/17 at 21:00; Stop 07/19/17 at 19:45; Status DC Divalproex Sodium (Depakote Sprinkles) 500 mg DAILY PO Last administered on 07/31 07:34; Start 07/17/17 at 09:00; Stop 07/31/17 at 18:25; Status DC Lorazepam (Ativan Intensol) 0.25 mg DAILY@1400 PO Last administered on 14:35; Start 07/17/17 at 14:00; Stop 07/18/17 at 18:16; Status DC Quetiapine Fumarate (SEROquel) 12.5 mg BID PO Last administered on 07/29/17 08: 21; Start 07/17/17 at 09:00; Stop 07/29/17 at 09:00; Status DC Divalproex Sodium (Depakote Sprinkles) 500 mg HS PO Last administered on 20:52; Start 07/19/17 at 21:00; Stop 07/31/17 at 18:25; Status DC Olanzapine (ZyPREXA ZYDIS) 1.25 mg PRN Q2HR PRN PO PSYCHOSIS Last administered on 07/31/17 03:23; Start 07/20/17 at 22:45 Trazodone HCl (Desyrel) 50 mg PRN QHS PRN PO INSOMNIA, MAY REPEAT X1 Last administered on 08/01/17 19:42; Start 07/20/17 at 22:45 Metoprolol Tartrate (Lopressor) 12.5 mg BID PO Last administered on 08/01/17 19 :41; Start 07/26/17 at 21:00 Quetiapine Fumarate (SEROquel) 12.5 mg 0900,1300,1700 PO Last administered on 16:52; Start 07/29/17 at 09:00 Mirtazapine (Remeron) 7.5 mg QHS PO Last administered on 08/01/17 19:40; Start 07/29/17 at 21:00 Divalproex Sodium (Depakote Sprinkles) 250 mg DAILY PO Last administered on 08/01 08:24; Start 08/01/17 at 09:00 Divalproex Sodium (Depakote Sprinkles) 750 mg HS PO Last administered on 19:40; Start 07/31/17 at 21:00 Vitamin D (Vitamin D3) 50,000 unit WEEKLY PO Last administered on 08/01/17 08: 24; Start 08/01/17 at 09:00 Active Scripts Active Reported Xalatan (Latanoprost) 2.5 Ml Drops 1 Drop LEFTEYE QHS Pred Forte (Prednisolone Acetate) 1 Ml Drops.susp 1 Drop OS QID Metoprolol Succinate ( Xl ) (Metoprolol Succinate) 25 Mg Tab.er.24h 12.5 Mg PO DAILY Lorazepam Intensol (Lorazepam) 2 Mg/1 Ml Oral.conc 0.25 Mg PO DAILY@1400 Glycolax (Polyethylene Glycol 3350) 119 Gm Powder 17 Gm PO DAILY Dorzolamide Hcl 10 Ml Drops 1 Drop LEFTEYE BID Depakote Sprinkle (Divalproex Sodium) 125 Mg Cap.sprink 250 Mg PO HS Milk Of Magnesia (Magnesium Hydroxide) 400 Mg/5 Ml Oral.susp 2,400 Mg PO PRN QHS PRN Mag-Al Plus Xs Suspension (Mag Hydrox/Al Hydrox/Simeth) 30 Ml Oral.susp 15 Ml PO PRN AFTMEALHC PRN Depakote Sprinkle (Divalproex Sodium) 125 Mg Cap.sprink 500 Mg PO DAILY Tylenol (Acetaminophen) 325 Mg Tablet 650 Mg PO PRN Q6HRS PRN Seroquel (Quetiapine Fumarate) 25 Mg Tablet 12.5 Mg PO BID I have reviewed the current psychotropics carefully including drug interactions. Risk benefit ratio favors no change other than as noted in my dictated progress note. Diagnosis: Problems: (1) Dementia with behavioral disturbance (2) Urinary tract infection (3) Anxiety disorder (4) Impulse control disorder (5) Dementia, vascular, with depression (6) Dementia, vascular, with delusions (7) Dementia in Alzheimer's disease with depression (8) Dementia in Alzheimer's disease with delusions SHASHI CRAVEN MD August 01, 2017 20:57
--- NOTE | 2017-08-02 01:48 | PN ---
DATE: 07/30/2017 This is a late entry of 07/30/2017 covers elements not covered in my initial note of 07/30/2017. SUBJECTIVE: I met with the patient in the evening. The patient slept 7-3/4 hours and was quite combative the night before, redirected, more awake in the evening, drowsy in the morning of 07/30/2017. REVIEW OF SYSTEMS: Ambulation impaired, in wheelchair/Broda chair. No CV, , pulmonary, eye, ENT system symptoms on review. Reliability poor. MENTAL STATUS EXAM: Oriented to herself. Insight, judgment, recent and remote memory, attention, concentration, fund of knowledge poor, consistent with her diagnosis mentioned in my initial note. PLAN: Continue current psychotropics. Adjust further as clinically indicated. MAN April CRAVEN MD DR: MINGO/emmanuel JOB#: [id number] / [id number]
[2017-08-02] MEDS: POLYETHYLENE GLYCOL 3350 17 GM PACKET. PO SCH (07:46)
[2017-08-02] MEDS: METOPROLOL TART IMMED RELEASE 25 MG TABLET PO SCH ×2 (07:46→19:35)
[2017-08-02] MEDS: QUEtiapine 25 MG TABLET. PO SCH ×3 (07:46→18:28)
[2017-08-02] MEDS: DIVALPROEX 125 MG CAP.SPRINK PO SCH ×2 (07:46→19:34)
[2017-08-02] MEDS: prednisoLONE ACETATE 1% OPHTH SUSPENSION 5ML BOTTLE. OS SCH ×4 (07:49→19:35)
[2017-08-02] MEDS: DORZOLAMIDE 2% OPHTH SOLUTION 10ML BOTTLE. OS SCH ×2 (07:49→19:36)
[2017-08-02 16:43] VITALS: BP 122/63
--- NOTE | 2017-08-02 17:00 | PN ---
DATE: 07/31/2017 This is a late entry for 07/31/2017 and covers the elements not covered in my initial note of 07/31/2017. SUBJECTIVE: I met with the patient in the evening and staffed at a treatment team meeting with the entire team in the morning; reviewed her history at length and progress. Previous evening, she was quite restless leaning over the Broda chair and is a fall risk, quite disorganized, appetite is fair, slept about 7 hours. Valproic acid level is therapeutic at 90. She is somewhat sedated during the day. REVIEW OF SYSTEMS: Ambulation impaired, in Broda chair. No CV, , pulmonary, eye, ENT system symptoms on review. MENTAL STATUS EXAM: Oriented to herself. Insight, judgment, recent and remote memory, attention, concentration, fund of knowledge poor, consistent with her diagnosis mentioned in my initial note. PLAN: Change her Depakote 500 mg twice a day to 250 mg in the morning and 750 at night to help with daytime sedation. Continue rest unchanged. SHASHI CRAVEN MD DR: MINGO/emmanuel JOB#: [id number] / [id number]
[2017-08-02] MEDS: traZODone 50 MG TABLET. PO PRN (19:34)
[2017-08-02] MEDS: MIRTAZAPINE 7.5 MG TABLET. PO SCH (19:34)
[2017-08-02] MEDS: LATANOPROST 0.005% OPHTH SOLUTION 2.5ML BOTTLE. OS SCH (19:35)
--- NOTE | 2017-08-02 22:55 | PDOC ---
Exam Note: Hiram Note: Please also refer to the separate dictated note~for this date of service dictated separately.~Patient seen individually. Discussed the patient with Nursing staff reviewed the chart.~Reviewed interim history and current functioning. Reviewed vital signs,~Labs/ Radiology~and current medications noted below. Continue current treatment with the changes noted in the dictated addendum note Assessment: Vital Signs: Vital Signs Date Time Temp Pulse Resp B/P (MAP) Pulse Ox O2 Delivery O2 Flow Rate FiO2 08/02/17 21:15 95 08/02/17 19:35 61 122/63 08/02/17 16:43 98.1 18 I&O Intake and Output 08/02/17 07:00 Intake Total 1200 ml Balance 1200 ml Intake Oral 1200 ml Current Medications: Meds: Current Medications Haloperidol Lactate (Haldol) 2.5 mg 1X ONCE IM Last administered on 07/16/17at 17:15; Start 07/16/17 at 17:15; Stop 07/16/17 at 17:16; Status DC Haloperidol Lactate (Haldol) 5 mg 1X ONCE IM Last administered on 07/16/17at 18 :00; Start 07/16/17 at 18:00; Stop 07/16/17 at 18:10; Status DC Acetaminophen (Tylenol) 650 mg PRN Q6HRS PRN PO PAIN / TEMP Last administered on 07/24/17at 15:56; Start 07/16/17 at 21:15 Multi-Ingredient Ointment (Analgesic [place]) 1 william PRN QID PRN TP MUSCLE PAIN; Start 07/16/17 at 21:15 Al Hydroxide/Mg Hydroxide (Mylanta Plus Xs) 15 ml PRN AFTMEALHC PRN PO DYSPEPSIA; Start 07/16/17 at 21:15 Magnesium Hydroxide (Milk Of Magnesia) 2,400 mg PRN QHS PRN PO CONSTIPATION Last administered on 07/22/17at 21:18; Start 07/16/17 at 21:15 Acetaminophen (Tylenol) 650 mg PRN Q6HRS PRN PO PAIN / TEMP; Start 07/16/17 at 23:15; Status UNV Dorzolamide HCl (Trusopt) 1 drop BID OS Last administered on 08/02/17at 19:36; Start 07/17/17 at 09:00 Latanoprost (Xalatan) 1 drop QHS OS Last administered on 08/02/17 19:35; Start 07/17/17 at 21:00 Al Hydroxide/Mg Hydroxide (Mylanta Plus Xs) 15 ml PRN AFTMEALHC PRN PO DYSPEPSIA; Start 07/16/17 at 23:15; Status UNV Magnesium Hydroxide (Milk Of Magnesia) 2,400 mg PRN QHS PRN PO CONSTIPATION; Start 07/16/17 at 23:15; Status UNV Metoprolol Succinate (Toprol Xl) 12.5 mg DAILY PO Last administered on at 10:37; Start 07/17/17 at 09:00; Stop 07/26/17 at 16:16; Status DC Polyethylene Glycol (miraLAX) 17 gm DAILY PO Last administered on 08/02/17 07: 46; Start 07/17/17 at 09:00 Prednisolone Acetate (Pred Forte) 1 drop QID OS Last administered on 08/02/17 19:35; Start 07/17/17 at 09:00 Divalproex Sodium (Depakote Sprinkles) 250 mg HS PO Last administered on 19:25; Start 07/17/17 at 21:00; Stop 07/19/17 at 19:45; Status DC Divalproex Sodium (Depakote Sprinkles) 500 mg DAILY PO Last administered on 07/31 07:34; Start 07/17/17 at 09:00; Stop 07/31/17 at 18:25; Status DC Lorazepam (Ativan Intensol) 0.25 mg DAILY@1400 PO Last administered on at 14:35; Start 07/17/17 at 14:00; Stop 07/18/17 at 18:16; Status DC Quetiapine Fumarate (SEROquel) 12.5 mg BID PO Last administered on 07/29/17 08: 21; Start 07/17/17 at 09:00; Stop 07/29/17 at 09:00; Status DC Divalproex Sodium (Depakote Sprinkles) 500 mg HS PO Last administered on at 20:52; Start 07/19/17 at 21:00; Stop 07/31/17 at 18:25; Status DC Olanzapine (ZyPREXA ZYDIS) 1.25 mg PRN Q2HR PRN PO PSYCHOSIS Last administered on 07/31/17 03:23; Start 07/20/17 at 22:45 Trazodone HCl (Desyrel) 50 mg PRN QHS PRN PO INSOMNIA, MAY REPEAT X1 Last administered on 08/02/17 19:34; Start 07/20/17 at 22:45 Metoprolol Tartrate (Lopressor) 12.5 mg BID PO Last administered on 08/02/17 19 :35; Start 07/26/17 at 21:00 Quetiapine Fumarate (SEROquel) 12.5 mg 0900,1300,1700 PO Last administered on 18:28; Start 07/29/17 at 09:00 Mirtazapine (Remeron) 7.5 mg QHS PO Last administered on 08/02/17 19:34; Start 07/29/17 at 21:00 Divalproex Sodium (Depakote Sprinkles) 250 mg DAILY PO Last administered on 08/02 07:46; Start 08/01/17 at 09:00 Divalproex Sodium (Depakote Sprinkles) 750 mg HS PO Last administered on 19:34; Start 07/31/17 at 21:00 Vitamin D (Vitamin D3) 50,000 unit WEEKLY PO Last administered on 08/01/17 08: 24; Start 08/01/17 at 09:00 Active Scripts Active Reported Xalatan (Latanoprost) 2.5 Ml Drops 1 Drop LEFTEYE QHS Pred Forte (Prednisolone Acetate) 1 Ml Drops.susp 1 Drop OS QID Metoprolol Succinate ( Xl ) (Metoprolol Succinate) 25 Mg Tab.er.24h 12.5 Mg PO DAILY Lorazepam Intensol (Lorazepam) 2 Mg/1 Ml Oral.conc 0.25 Mg PO DAILY@1400 Glycolax (Polyethylene Glycol 3350) 119 Gm Powder 17 Gm PO DAILY Dorzolamide Hcl 10 Ml Drops 1 Drop LEFTEYE BID Depakote Sprinkle (Divalproex Sodium) 125 Mg Cap.sprink 250 Mg PO HS Milk Of Magnesia (Magnesium Hydroxide) 400 Mg/5 Ml Oral.susp 2,400 Mg PO PRN QHS PRN Mag-Al Plus Xs Suspension (Mag Hydrox/Al Hydrox/Simeth) 30 Ml Oral.susp 15 Ml PO PRN AFTMEALHC PRN Depakote Sprinkle (Divalproex Sodium) 125 Mg Cap.sprink 500 Mg PO DAILY Tylenol (Acetaminophen) 325 Mg Tablet 650 Mg PO PRN Q6HRS PRN Seroquel (Quetiapine Fumarate) 25 Mg Tablet 12.5 Mg PO BID I have reviewed the current psychotropics carefully including drug interactions. Risk benefit ratio favors no change other than as noted in my dictated progress note. Diagnosis: Problems: (1) Dementia with behavioral disturbance (2) Urinary tract infection (3) Anxiety disorder (4) Impulse control disorder (5) Dementia, vascular, with depression (6) Dementia, vascular, with delusions (7) Dementia in Alzheimer's disease with depression (8) Dementia in Alzheimer's disease with delusions SHASHI CRAVEN MD August 02, 2017 22:55
[2017-08-03 06:17] VITALS: BP 115/64
[2017-08-03] MEDS: POLYETHYLENE GLYCOL 3350 17 GM PACKET. PO SCH (07:43)
[2017-08-03] MEDS: QUEtiapine 25 MG TABLET. PO SCH ×3 (07:44→18:47)
[2017-08-03] MEDS: DIVALPROEX 125 MG CAP.SPRINK PO SCH ×2 (07:44→20:09)
[2017-08-03] MEDS: METOPROLOL TART IMMED RELEASE 25 MG TABLET PO SCH ×2 (07:44→20:10)
[2017-08-03] MEDS: DORZOLAMIDE 2% OPHTH SOLUTION 10ML BOTTLE. OS SCH ×2 (07:47→20:11)
[2017-08-03] MEDS: prednisoLONE ACETATE 1% OPHTH SUSPENSION 5ML BOTTLE. OS SCH ×4 (07:47→20:11)
[2017-08-03 16:32] VITALS: BP 114/60
--- NOTE | 2017-08-03 18:42 | PDOC ---
Exam Note: Hiram Note: Please also refer to the separate dictated note~for this date of service dictated separately.~Patient seen individually. Discussed the patient with Nursing staff reviewed the chart.~Reviewed interim history and current functioning. Reviewed vital signs,~Labs/ Radiology~and current medications noted below. Continue current treatment with the changes noted in the dictated addendum note Assessment: Vital Signs: Vital Signs Date Time Temp Pulse Resp B/P (MAP) Pulse Ox O2 Delivery O2 Flow Rate FiO2 08/03/17 16:32 97.4 63 20 114/60 (78) 93 I&O Intake and Output 08/03/17 07:00 Intake Total 1080 ml Balance 1080 ml Intake Oral 1080 ml # Bowel Movements 1 Current Medications: Meds: Current Medications Haloperidol Lactate (Haldol) 2.5 mg 1X ONCE IM Last administered on 07/16/17at 17:15; Start 07/16/17 at 17:15; Stop 07/16/17 at 17:16; Status DC Haloperidol Lactate (Haldol) 5 mg 1X ONCE IM Last administered on 07/16/17at 18 :00; Start 07/16/17 at 18:00; Stop 07/16/17 at 18:10; Status DC Acetaminophen (Tylenol) 650 mg PRN Q6HRS PRN PO PAIN / TEMP Last administered on 07/24/17at 15:56; Start 07/16/17 at 21:15 Multi-Ingredient Ointment (Analgesic Topping) 1 william PRN QID PRN TP MUSCLE PAIN; Start 07/16/17 at 21:15 Al Hydroxide/Mg Hydroxide (Mylanta Plus Xs) 15 ml PRN AFTMEALHC PRN PO DYSPEPSIA; Start 07/16/17 at 21:15 Magnesium Hydroxide (Milk Of Magnesia) 2,400 mg PRN QHS PRN PO CONSTIPATION Last administered on 07/22/17at 21:18; Start 07/16/17 at 21:15 Acetaminophen (Tylenol) 650 mg PRN Q6HRS PRN PO PAIN / TEMP; Start 07/16/17 at 23:15; Status UNV Dorzolamide HCl (Trusopt) 1 drop BID OS Last administered on 08/03/17at 07:47; Start 07/17/17 at 09:00 Latanoprost (Xalatan) 1 drop QHS OS Last administered on 08/02/17 19:35; Start 07/17/17 at 21:00 Al Hydroxide/Mg Hydroxide (Mylanta Plus Xs) 15 ml PRN AFTMEALHC PRN PO DYSPEPSIA; Start 07/16/17 at 23:15; Status UNV Magnesium Hydroxide (Milk Of Magnesia) 2,400 mg PRN QHS PRN PO CONSTIPATION; Start 07/16/17 at 23:15; Status UNV Metoprolol Succinate (Toprol Xl) 12.5 mg DAILY PO Last administered on at 10:37; Start 07/17/17 at 09:00; Stop 07/26/17 at 16:16; Status DC Polyethylene Glycol (miraLAX) 17 gm DAILY PO Last administered on 08/03/17 07: 43; Start 07/17/17 at 09:00 Prednisolone Acetate (Pred Forte) 1 drop QID OS Last administered on 08/03/17 12:01; Start 07/17/17 at 09:00 Divalproex Sodium (Depakote Sprinkles) 250 mg HS PO Last administered on 19:25; Start 07/17/17 at 21:00; Stop 07/19/17 at 19:45; Status DC Divalproex Sodium (Depakote Sprinkles) 500 mg DAILY PO Last administered on 07/31 07:34; Start 07/17/17 at 09:00; Stop 07/31/17 at 18:25; Status DC Lorazepam (Ativan Intensol) 0.25 mg DAILY@1400 PO Last administered on 14:35; Start 07/17/17 at 14:00; Stop 07/18/17 at 18:16; Status DC Quetiapine Fumarate (SEROquel) 12.5 mg BID PO Last administered on 07/29/17 08: 21; Start 07/17/17 at 09:00; Stop 07/29/17 at 09:00; Status DC Divalproex Sodium (Depakote Sprinkles) 500 mg HS PO Last administered on 20:52; Start 07/19/17 at 21:00; Stop 07/31/17 at 18:25; Status DC Olanzapine (ZyPREXA ZYDIS) 1.25 mg PRN Q2HR PRN PO PSYCHOSIS Last administered on 07/31/17 03:23; Start 07/20/17 at 22:45 Trazodone HCl (Desyrel) 50 mg PRN QHS PRN PO INSOMNIA, MAY REPEAT X1 Last administered on 08/02/17 19:34; Start 07/20/17 at 22:45 Metoprolol Tartrate (Lopressor) 12.5 mg BID PO Last administered on 08/03/17 07 :44; Start 07/26/17 at 21:00 Quetiapine Fumarate (SEROquel) 12.5 mg 0900,1300,1700 PO Last administered on 12:01; Start 07/29/17 at 09:00 Mirtazapine (Remeron) 7.5 mg QHS PO Last administered on 08/02/17 19:34; Start 07/29/17 at 21:00 Divalproex Sodium (Depakote Sprinkles) 250 mg DAILY PO Last administered on 08/03 07:44; Start 08/01/17 at 09:00 Divalproex Sodium (Depakote Sprinkles) 750 mg HS PO Last administered on 19:34; Start 07/31/17 at 21:00 Vitamin D (Vitamin D3) 50,000 unit WEEKLY PO Last administered on 08/01/17 08: 24; Start 08/01/17 at 09:00 Active Scripts Active Reported Xalatan (Latanoprost) 2.5 Ml Drops 1 Drop LEFTEYE QHS Pred Forte (Prednisolone Acetate) 1 Ml Drops.susp 1 Drop OS QID Metoprolol Succinate ( Xl ) (Metoprolol Succinate) 25 Mg Tab.er.24h 12.5 Mg PO DAILY Lorazepam Intensol (Lorazepam) 2 Mg/1 Ml Oral.conc 0.25 Mg PO DAILY@1400 Glycolax (Polyethylene Glycol 3350) 119 Gm Powder 17 Gm PO DAILY Dorzolamide Hcl 10 Ml Drops 1 Drop LEFTEYE BID Depakote Sprinkle (Divalproex Sodium) 125 Mg Cap.sprink 250 Mg PO HS Milk Of Magnesia (Magnesium Hydroxide) 400 Mg/5 Ml Oral.susp 2,400 Mg PO PRN QHS PRN Mag-Al Plus Xs Suspension (Mag Hydrox/Al Hydrox/Simeth) 30 Ml Oral.susp 15 Ml PO PRN AFTMEALHC PRN Depakote Sprinkle (Divalproex Sodium) 125 Mg Cap.sprink 500 Mg PO DAILY Tylenol (Acetaminophen) 325 Mg Tablet 650 Mg PO PRN Q6HRS PRN Seroquel (Quetiapine Fumarate) 25 Mg Tablet 12.5 Mg PO BID I have reviewed the current psychotropics carefully including drug interactions. Risk benefit ratio favors no change other than as noted in my dictated progress note. 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
[2017-08-03] MEDS: MIRTAZAPINE 7.5 MG TABLET. PO SCH (20:09)
[2017-08-03] MEDS: traZODone 50 MG TABLET. PO PRN (20:10)
[2017-08-03] MEDS: LATANOPROST 0.005% OPHTH SOLUTION 2.5ML BOTTLE. OS SCH (20:20)
[2017-08-04 06:20] VITALS: BP 165/81
[2017-08-04] MEDS: DIVALPROEX 125 MG CAP.SPRINK PO SCH ×2 (06:24→19:49)
[2017-08-04] MEDS: METOPROLOL TART IMMED RELEASE 25 MG TABLET PO SCH ×2 (06:25→19:49)
[2017-08-04] MEDS: DORZOLAMIDE 2% OPHTH SOLUTION 10ML BOTTLE. OS SCH ×2 (06:26→19:51)
[2017-08-04] MEDS: QUEtiapine 25 MG TABLET. PO SCH ×3 (06:26→17:08)
[2017-08-04] MEDS: prednisoLONE ACETATE 1% OPHTH SUSPENSION 5ML BOTTLE. OS SCH ×4 (06:26→19:51)
[2017-08-04] MEDS: POLYETHYLENE GLYCOL 3350 17 GM PACKET. PO SCH (06:26)
[2017-08-04 16:26] VITALS: BP_SYST 149; BP_SYST 185; BP_DIAS 65; BP_DIAS 81
[2017-08-04] MEDS: MIRTAZAPINE 7.5 MG TABLET. PO SCH (19:49)
[2017-08-04] MEDS: LATANOPROST 0.005% OPHTH SOLUTION 2.5ML BOTTLE. OS SCH (19:51)
--- NOTE | 2017-08-04 20:52 | PDOC ---
Exam Note: Hiram Note: Please also refer to the separate dictated note~for this date of service dictated separately.~Patient seen individually. Discussed the patient with Nursing staff reviewed the chart.~Reviewed interim history and current functioning. Reviewed vital signs,~Labs/ Radiology~and current medications noted below. Continue current treatment with the changes noted in the dictated addendum note Assessment: Vital Signs: Vital Signs Date Time Temp Pulse Resp B/P (MAP) Pulse Ox O2 Delivery O2 Flow Rate FiO2 08/04/17 19:49 65 149/81 08/04/17 16:26 98.6 20 98 I&O Intake and Output 08/04/17 07:00 Intake Total 1080 ml Balance 1080 ml Intake Oral 1080 ml # Bowel Movements 2 Current Medications: Meds: Current Medications Haloperidol Lactate (Haldol) 2.5 mg 1X ONCE IM Last administered on 07/16/17 17:15; Start 07/16/17 at 17:15; Stop 07/16/17 at 17:16; Status DC Haloperidol Lactate (Haldol) 5 mg 1X ONCE IM Last administered on 07/16/17at 18 :00; Start 07/16/17 at 18:00; Stop 07/16/17 at 18:10; Status DC Acetaminophen (Tylenol) 650 mg PRN Q6HRS PRN PO PAIN / TEMP Last administered on 07/24/17at 15:56; Start 07/16/17 at 21:15 Multi-Ingredient Ointment (Analgesic [place]) 1 william PRN QID PRN TP MUSCLE PAIN; Start 07/16/17 at 21:15 Al Hydroxide/Mg Hydroxide (Mylanta Plus Xs) 15 ml PRN AFTMEALHC PRN PO DYSPEPSIA; Start 07/16/17 at 21:15 Magnesium Hydroxide (Milk Of Magnesia) 2,400 mg PRN QHS PRN PO CONSTIPATION Last administered on 07/22/17at 21:18; Start 07/16/17 at 21:15 Acetaminophen (Tylenol) 650 mg PRN Q6HRS PRN PO PAIN / TEMP; Start 07/16/17 at 23:15; Status UNV Dorzolamide HCl (Trusopt) 1 drop BID OS Last administered on 08/04/17at 19:51; Start 07/17/17 at 09:00 Latanoprost (Xalatan) 1 drop QHS OS Last administered on 08/04/17 19:51; Start 07/17/17 at 21:00 Al Hydroxide/Mg Hydroxide (Mylanta Plus Xs) 15 ml PRN AFTMEALHC PRN PO DYSPEPSIA; Start 07/16/17 at 23:15; Status UNV Magnesium Hydroxide (Milk Of Magnesia) 2,400 mg PRN QHS PRN PO CONSTIPATION; Start 07/16/17 at 23:15; Status UNV Metoprolol Succinate (Toprol Xl) 12.5 mg DAILY PO Last administered on 10:37; Start 07/17/17 at 09:00; Stop 07/26/17 at 16:16; Status DC Polyethylene Glycol (miraLAX) 17 gm DAILY PO Last administered on 08/04/17 06: 26; Start 07/17/17 at 09:00 Prednisolone Acetate (Pred Forte) 1 drop QID OS Last administered on 08/04/17 19:51; Start 07/17/17 at 09:00 Divalproex Sodium (Depakote Sprinkles) 250 mg HS PO Last administered on 19:25; Start 07/17/17 at 21:00; Stop 07/19/17 at 19:45; Status DC Divalproex Sodium (Depakote Sprinkles) 500 mg DAILY PO Last administered on 07/31 07:34; Start 07/17/17 at 09:00; Stop 07/31/17 at 18:25; Status DC Lorazepam (Ativan Intensol) 0.25 mg DAILY@1400 PO Last administered on 14:35; Start 07/17/17 at 14:00; Stop 07/18/17 at 18:16; Status DC Quetiapine Fumarate (SEROquel) 12.5 mg BID PO Last administered on 07/29/17 08: 21; Start 07/17/17 at 09:00; Stop 07/29/17 at 09:00; Status DC Divalproex Sodium (Depakote Sprinkles) 500 mg HS PO Last administered on 20:52; Start 07/19/17 at 21:00; Stop 07/31/17 at 18:25; Status DC Olanzapine (ZyPREXA ZYDIS) 1.25 mg PRN Q2HR PRN PO PSYCHOSIS Last administered on 07/31/17 03:23; Start 07/20/17 at 22:45; Stop 08/04/17 at 19:21; Status DC Trazodone HCl (Desyrel) 50 mg PRN QHS PRN PO INSOMNIA, MAY REPEAT X1 Last administered on 08/03/17at 20:10; Start 07/20/17 at 22:45 Metoprolol Tartrate (Lopressor) 12.5 mg BID PO Last administered on 08/04/17 19 :49; Start 07/26/17 at 21:00 Quetiapine Fumarate (SEROquel) 12.5 mg 0900,1300,1700 PO Last administered on 17:08; Start 07/29/17 at 09:00; Stop 08/04/17 at 19:21; Status DC Mirtazapine (Remeron) 7.5 mg QHS PO Last administered on 08/04/17 19:49; Start 07/29/17 at 21:00 Divalproex Sodium (Depakote Sprinkles) 250 mg DAILY PO Last administered on 08/04 06:24; Start 08/01/17 at 09:00 Divalproex Sodium (Depakote Sprinkles) 750 mg HS PO Last administered on 19:49; Start 07/31/17 at 21:00 Vitamin D (Vitamin D3) 50,000 unit WEEKLY PO Last administered on 08/01/17at 08: 24; Start 08/01/17 at 09:00 Olanzapine (ZyPREXA ZYDIS) 2.5 mg PRN Q2HR PRN PO PSYCHOSIS; Start 08/04/17 at 19:30 Quetiapine Fumarate (SEROquel) 12.5 mg DAILY@1300 PO ; Start 08/05/17 at 13:00 Quetiapine Fumarate (SEROquel) 25 mg BID@0900,1700 PO ; Start 08/05/17 at 09:00 Olanzapine (ZyPREXA ZYDIS) 5 mg 1X ONCE PO ; Start 08/05/17 at 09:30; Stop at 09:31 Active Scripts Active Reported Xalatan (Latanoprost) 2.5 Ml Drops 1 Drop LEFTEYE QHS Pred Forte (Prednisolone Acetate) 1 Ml Drops.susp 1 Drop OS QID Metoprolol Succinate ( Xl ) (Metoprolol Succinate) 25 Mg Tab.er.24h 12.5 Mg PO DAILY Lorazepam Intensol (Lorazepam) 2 Mg/1 Ml Oral.conc 0.25 Mg PO DAILY@1400 Glycolax (Polyethylene Glycol 3350) 119 Gm Powder 17 Gm PO DAILY Dorzolamide Hcl 10 Ml Drops 1 Drop LEFTEYE BID Depakote Sprinkle (Divalproex Sodium) 125 Mg Cap.sprink 250 Mg PO HS Milk Of Magnesia (Magnesium Hydroxide) 400 Mg/5 Ml Oral.susp 2,400 Mg PO PRN QHS PRN Mag-Al Plus Xs Suspension (Mag Hydrox/Al Hydrox/Simeth) 30 Ml Oral.susp 15 Ml PO PRN AFTMEALHC PRN Depakote Sprinkle (Divalproex Sodium) 125 Mg Cap.sprink 500 Mg PO DAILY Tylenol (Acetaminophen) 325 Mg Tablet 650 Mg PO PRN Q6HRS PRN Seroquel (Quetiapine Fumarate) 25 Mg Tablet 12.5 Mg PO BID I have reviewed the current psychotropics carefully including drug interactions. Risk benefit ratio favors no change other than as noted in my dictated progress note. Diagnosis: Problems: (1) Dementia with behavioral disturbance (2) Urinary tract infection (3) Anxiety disorder (4) Impulse control disorder (5) Dementia, vascular, with depression (6) Dementia, vascular, with delusions (7) Dementia in Alzheimer's disease with depression (8) Dementia in Alzheimer's disease with delusions SHASHI CRAVEN MD August 04, 2017 20:52
[2017-08-05] MEDS ORDERED: OLAN2.5T3 PO (01:26)
[2017-08-05] MEDS ORDERED: QUET25TA5 PO (01:28)
[2017-08-05] MEDS ORDERED: TRAZ50TA15 PO (01:30)
[2017-08-05] MEDS ORDERED: MIRT15TA PO (01:31)
[2017-08-05] MEDS ORDERED: METH29OI TP (01:32)
[2017-08-05] MEDS ORDERED: CHOL500021 PO (01:34)
[2017-08-05] MEDS ORDERED: DIVA125C3 PO (01:34)
--- NOTE | 2017-08-05 02:50 | PN ---
DATE: 08/03/2017 This is a late entry for 08/03/2017 and covers the elements not covered in my initial note of 08/03/2017. SUBJECTIVE: I met with the patient in the evening. The patient slept 6-3/4 hours previous night, screamed a little in the morning, took naps in the afternoon, slept through breakfast. REVIEW OF SYSTEMS: Ambulation impaired, in wheelchair. Broda chair. No CV, , pulmonary, eye system symptoms on review. MENTAL STATUS EXAM: Oriented to herself. Insight, judgment, recent and remote memory, attention, concentration, fund of knowledge poor, consistent with her diagnosis. She was smiling as I met with her, oblivious of surroundings. LABORATORY DATA: Reviewed. IMPRESSION: Unchanged from initial note. PLAN: Continue current psychotropics. MAN April CRAVEN MD DR: MINGO/emmanuel JOB#: [id number] / [id number]
--- NOTE | 2017-08-05 07:38 | PN ---
DATE: 08/01/2017 This late entry of 08/01/2017 covers elements not covered in my initial note 08/01/2017. Met with the patient in the evening. The patient was awake in the morning, somewhat resistive to going to the dining room, but ambulated half the way to the dining room with assistance. Quite drowsy in the evening. Seroquel was held given later at 5:00 p.m. less combative with cares. No yelling. REVIEW OF SYSTEMS: Ambulation impaired, in Broda chair. No CV, , pulmonary, eye, ENT system symptoms on review. Reliability poor. MENTAL STATUS EXAM: Oriented to herself. Insight, judgment, recent and remote memory, attention, concentration, fund of knowledge poor, consistent with her diagnosis mentioned in my initial note. PLAN: Continue psychotropics mentioned in my initial note. Adjust as clinically indicated. Valproic acid level therapeutic at 90. MAN April CRAVEN MD DR: MINGO/emmanuel JOB#: [id number] / [id number]
[2017-08-05] MEDS: POLYETHYLENE GLYCOL 3350 17 GM PACKET. PO SCH (07:43)
[2017-08-05] MEDS: DIVALPROEX 125 MG CAP.SPRINK PO SCH ×2 (07:43→21:14)
[2017-08-05] MEDS: QUEtiapine 25 MG TABLET. PO SCH ×2 (07:45→17:59)
[2017-08-05] MEDS: prednisoLONE ACETATE 1% OPHTH SUSPENSION 5ML BOTTLE. OS SCH ×4 (07:46→23:40)
[2017-08-05] MEDS: DORZOLAMIDE 2% OPHTH SOLUTION 10ML BOTTLE. OS SCH ×2 (07:46→23:40)
[2017-08-05 08:30] VITALS: BP 163/97
[2017-08-05] MEDS: METOPROLOL TART IMMED RELEASE 25 MG TABLET PO SCH ×2 (09:00→21:13)
--- NOTE | 2017-08-05 09:58 | PN ---
DATE: 08/02/2017 PSYCHIATRIC PROGRESS NOTE This is a late entry for 08/02/2017, covers the elements not covered in my initial note of 08/02/2017. SUBJECTIVE: I met with the patient in the evening. Overall, the patient is awake in the morning, drowsy in the afternoon, otherwise, compliant, ambulated at times with staff. REVIEW OF SYSTEMS: No CV, , pulmonary, eye system symptoms on review. Reliability poor. Ambulation in Broda chair. MENTAL STATUS EXAMINATION: Oriented to herself. Insight, judgment, recent and remote memory, attention, concentration, fund of knowledge poor, consistent with her diagnosis mentioned in my initial note. PLAN: Continue current psychotropics. Occupational Therapy wants the patient to ambulate to dining room with walker followed by Beto. MAN April CRAVEN MD DR: MINGO/emmanuel JOB#: [id number] / [id number]
[2017-08-05 11:27] LABS: BACTERIA,URINE 0 /HPF (0-FEW); BILIRUBIN,URINE NEG (NEG); CLARITY,URINE CLEAR; COLOR,URINE YELLOW; GLUCOSE,URINE NEG (NEG); NITRITE,URINE NEG (NEG); RBC,URINE RARE /HPF (0-2); UROBILINOGEN,URINE 0.2 mg/dL (0.2 mg/dL); WBC,URINE OCC /HPF (0-4)
[2017-08-05 11:28] LABS: SQUAMOUS EPITHELIAL CELL,UR OCC /LPF
[2017-08-05] MEDS ORDERED: QUEtiapine 25 MG TABLET. PO SCH (13:00)
[2017-08-05 16:09] VITALS: BP 151/84
--- NOTE | 2017-08-05 20:45 | PDOC ---
Exam Note: Hiram Note: Please also refer to the separate dictated note~for this date of service dictated separately.~Patient seen individually. Discussed the patient with Nursing staff reviewed the chart.~Reviewed interim history and current functioning. Reviewed vital signs,~Labs/ Radiology~and current medications noted below. Continue current treatment with the changes noted in the dictated addendum note Assessment: Vital Signs: Vital Signs Date Time Temp Pulse Resp B/P (MAP) Pulse Ox O2 Delivery O2 Flow Rate FiO2 08/05/17 16:09 96.7 70 16 151/84 (106) 98 I&O Intake and Output 08/05/17 07:00 Intake Total 390 ml Balance 390 ml Intake Oral 390 ml # Voids 2 # Bowel Movements 2 Labs: Laboratory Tests Test 08/05/17 11:00 Urine Collection Type Unknown Urine Color Yellow Urine Clarity Clear Urine pH 7.0 Urine Specific [place] 1.015 Urine Protein Neg (NEG-TRACE) Urine Glucose (UA) Neg mg/dL (NEG) Urine Ketones (Stick) Neg mg/dL (NEG) Urine Blood Neg (NEG) Urine Nitrite Neg (NEG) Urine Bilirubin Neg (NEG) Urine Urobilinogen Dipstick 0.2 mg/dL (0.2 mg/dL) Urine Leukocyte Esterase Neg (NEG) Urine RBC Rare /HPF (0-2) Urine WBC Occ /HPF (0-4) Urine Squamous Epithelial Cells Occ /LPF Urine Transitional Epithelial Cells Occ /LPF Urine Bacteria 0 /HPF (0-FEW) Current Medications: Meds: Current Medications Haloperidol Lactate (Haldol) 2.5 mg 1X ONCE IM Last administered on 07/16/17at 17:15; Start 07/16/17 at 17:15; Stop 07/16/17 at 17:16; Status DC Haloperidol Lactate (Haldol) 5 mg 1X ONCE IM Last administered on 07/16/17at 18 :00; Start 07/16/17 at 18:00; Stop 07/16/17 at 18:10; Status DC Acetaminophen (Tylenol) 650 mg PRN Q6HRS PRN PO PAIN / TEMP Last administered on 07/24/17at 15:56; Start 07/16/17 at 21:15 Multi-Ingredient Ointment (Analgesic [place]) 1 william PRN QID PRN TP MUSCLE PAIN; Start 07/16/17 at 21:15 Al Hydroxide/Mg Hydroxide (Mylanta Plus Xs) 15 ml PRN AFTMEALHC PRN PO DYSPEPSIA; Start 07/16/17 at 21:15 Magnesium Hydroxide (Milk Of Magnesia) 2,400 mg PRN QHS PRN PO CONSTIPATION Last administered on 07/22/17 21:18; Start 07/16/17 at 21:15 Acetaminophen (Tylenol) 650 mg PRN Q6HRS PRN PO PAIN / TEMP; Start 07/16/17 at 23:15; Status UNV Dorzolamide HCl (Trusopt) 1 drop BID OS Last administered on 08/05/17 07:46; Start 07/17/17 at 09:00 Latanoprost (Xalatan) 1 drop QHS OS Last administered on 08/04/17 19:51; Start 07/17/17 at 21:00 Al Hydroxide/Mg Hydroxide (Mylanta Plus Xs) 15 ml PRN AFTMEALHC PRN PO DYSPEPSIA; Start 07/16/17 at 23:15; Status UNV Magnesium Hydroxide (Milk Of Magnesia) 2,400 mg PRN QHS PRN PO CONSTIPATION; Start 07/16/17 at 23:15; Status UNV Metoprolol Succinate (Toprol Xl) 12.5 mg DAILY PO Last administered on 10:37; Start 07/17/17 at 09:00; Stop 07/26/17 at 16:16; Status DC Polyethylene Glycol (miraLAX) 17 gm DAILY PO Last administered on 08/05/17at 07: 43; Start 07/17/17 at 09:00 Prednisolone Acetate (Pred Forte) 1 drop QID OS Last administered on 08/05/17at 13:09; Start 07/17/17 at 09:00 Divalproex Sodium (Depakote Sprinkles) 250 mg HS PO Last administered on 19:25; Start 07/17/17 at 21:00; Stop 07/19/17 at 19:45; Status DC Divalproex Sodium (Depakote Sprinkles) 500 mg DAILY PO Last administered on 07/31 07:34; Start 07/17/17 at 09:00; Stop 07/31/17 at 18:25; Status DC Lorazepam (Ativan Intensol) 0.25 mg DAILY@1400 PO Last administered on at 14:35; Start 07/17/17 at 14:00; Stop 07/18/17 at 18:16; Status DC Quetiapine Fumarate (SEROquel) 12.5 mg BID PO Last administered on 07/29/17 08: 21; Start 07/17/17 at 09:00; Stop 07/29/17 at 09:00; Status DC Divalproex Sodium (Depakote Sprinkles) 500 mg HS PO Last administered on at 20:52; Start 07/19/17 at 21:00; Stop 07/31/17 at 18:25; Status DC Olanzapine (ZyPREXA ZYDIS) 1.25 mg PRN Q2HR PRN PO PSYCHOSIS Last administered on 07/31/17 03:23; Start 07/20/17 at 22:45; Stop 08/04/17 at 19:21; Status DC Trazodone HCl (Desyrel) 50 mg PRN QHS PRN PO INSOMNIA, MAY REPEAT X1 Last administered on 08/03/17 20:10; Start 07/20/17 at 22:45 Metoprolol Tartrate (Lopressor) 12.5 mg BID PO Last administered on 08/04/17 19 :49; Start 07/26/17 at 21:00 Quetiapine Fumarate (SEROquel) 12.5 mg 0900,1300,1700 PO Last administered on 17:08; Start 07/29/17 at 09:00; Stop 08/04/17 at 19:21; Status DC Mirtazapine (Remeron) 7.5 mg QHS PO Last administered on 08/04/17 19:49; Start 07/29/17 at 21:00 Divalproex Sodium (Depakote Sprinkles) 250 mg DAILY PO Last administered on 08/05 07:43; Start 08/01/17 at 09:00 Divalproex Sodium (Depakote Sprinkles) 750 mg HS PO Last administered on 19:49; Start 07/31/17 at 21:00 Vitamin D (Vitamin D3) 50,000 unit WEEKLY PO Last administered on 08/01/17at 08: 24; Start 08/01/17 at 09:00 Olanzapine (ZyPREXA ZYDIS) 2.5 mg PRN Q2HR PRN PO PSYCHOSIS Last administered on 08/05/17at 18:00; Start 08/04/17 at 19:30 Quetiapine Fumarate (SEROquel) 12.5 mg DAILY@1300 PO Last administered on at 13:09; Start 08/05/17 at 13:00; Stop 08/05/17 at 19:50; Status DC Quetiapine Fumarate (SEROquel) 25 mg BID@0900,1700 PO Last administered on at 17:59; Start 08/05/17 at 09:00; Stop 08/05/17 at 19:50; Status DC Olanzapine (ZyPREXA ZYDIS) 5 mg 1X ONCE PO Last administered on 08/05/17at 10:12 ; Start 08/05/17 at 09:30; Stop 08/05/17 at 19:50; Status DC Hydralazine HCl (Apresoline) 10 mg TID PO ; Start 08/05/17 at 21:00 Quetiapine Fumarate (SEROquel) 25 mg TID@0900,1300,1700 PO ; Start 08/06/17 at 09 :00 Active Scripts Active Reported D3-50 (Cholecalciferol (Vitamin D3)) 50,000 Unit Capsule 50,000 Unit PO WEEKLY Analgesic [place] (Methyl Salicylate/Menthol) 28 Gm Oint...g. 1 Gm TP PRN QID PRN Remeron (Mirtazapine) 15 Mg Tablet 7.5 Mg PO QHS PRN Trazodone Hcl 50 Mg Tablet 50 Mg PO PRN QHS PRN Seroquel (Quetiapine Fumarate) 25 Mg Tablet 25 Mg PO BID@9,1700 Zyprexa (Olanzapine) 2.5 Mg Tablet 2.5 Mg PO PRN Q2HR PRN Xalatan (Latanoprost) 2.5 Ml Drops 1 Drop LEFTEYE QHS Pred Forte (Prednisolone Acetate) 1 Ml Drops.susp 1 Drop OS QID Metoprolol Succinate ( Xl ) (Metoprolol Succinate) 25 Mg Tab.er.24h 12.5 Mg PO DAILY Lorazepam Intensol (Lorazepam) 2 Mg/1 Ml Oral.conc 0.25 Mg PO DAILY@1400 Glycolax (Polyethylene Glycol 3350) 119 Gm Powder 17 Gm PO DAILY Dorzolamide Hcl 10 Ml Drops 1 Drop LEFTEYE BID Depakote Sprinkle (Divalproex Sodium) 125 Mg Cap.sprink 250 Mg PO HS Milk Of Magnesia (Magnesium Hydroxide) 400 Mg/5 Ml Oral.susp 2,400 Mg PO PRN QHS PRN Mag-Al Plus Xs Suspension (Mag Hydrox/Al Hydrox/Simeth) 30 Ml Oral.susp 15 Ml PO PRN AFTMEALHC PRN Depakote Sprinkle (Divalproex Sodium) 125 Mg Cap.sprink 500 Mg PO DAILY Tylenol (Acetaminophen) 325 Mg Tablet 650 Mg PO PRN Q6HRS PRN Seroquel (Quetiapine Fumarate) 25 Mg Tablet 12.5 Mg PO BID I have reviewed the current psychotropics carefully including drug interactions. Risk benefit ratio favors no change other than as noted in my dictated progress note. Diagnosis: Problems: (1) Dementia with behavioral disturbance (2) Urinary tract infection (3) Anxiety disorder (4) Impulse control disorder (5) Dementia, vascular, with depression (6) Dementia, vascular, with delusions (7) Dementia in Alzheimer's disease with depression (8) Dementia in Alzheimer's disease with delusions SHASHI CRAVEN MD August 05, 2017 20:45
[2017-08-05] MEDS: MIRTAZAPINE 7.5 MG TABLET. PO SCH (21:13)
[2017-08-05] MEDS: hydrALAZINE 10 MG TABLET PO SCH (21:17)
[2017-08-05] MEDS: traZODone 50 MG TABLET. PO PRN (23:14)
[2017-08-06] MEDS: LATANOPROST 0.005% OPHTH SOLUTION 2.5ML BOTTLE. OS SCH ×2 (00:58→21:00)
--- NOTE | 2017-08-06 05:50 | PN ---
DATE: 08/04/2017 This late entry 08/04/2017 covers elements not covered in my initial note of 08/04/2017. I met with the patient evening of 08/04/2017. SUBJECTIVE: The patient slept 10 hours previous evening, spends much time in Broda chair and [facility] She may need to be in a regular wheelchair rather than Broda chair. She has been striking out at others around her biting, yelling, resistive with medications and showers. REVIEW OF SYSTEMS: No CV, , pulmonary, eye, ENT system symptoms on review. Reliability poor. Gait unsteady. MENTAL STATUS EXAM: Oriented to herself. Insight, judgment, recent and remote memory, attention, concentration, fund of knowledge poor, consistent with her diagnosis mentioned in my initial note. PLAN: Increase Zyprexa to 2.5 mg q. 2 hours p.r.n. psychosis, agitation, max 15 mg in 24 hours. Increase Seroquel from 12.5 mg t.i.d. to 25 mg b.i.d., 12.5 mg once a day. Maintain Depakote at current dosage level therapeutic at 90. Consider repeating UA. Continue Rest unchanged. We may need to postpone the discharge schedule for 08/05/2017. SHASHI CRAVEN MD DR: MINGO/emmanuel JOB#: [id number] / [id number]
[2017-08-06 05:54] VITALS: BP 119/77
[2017-08-06] MEDS: hydrALAZINE 10 MG TABLET PO SCH ×3 (08:08→19:58)
[2017-08-06] MEDS: METOPROLOL TART IMMED RELEASE 25 MG TABLET PO SCH ×2 (08:09→19:57)
[2017-08-06] MEDS: DIVALPROEX 125 MG CAP.SPRINK PO SCH ×2 (08:09→19:58)
[2017-08-06] MEDS: POLYETHYLENE GLYCOL 3350 17 GM PACKET. PO SCH (08:10)
[2017-08-06] MEDS: prednisoLONE ACETATE 1% OPHTH SUSPENSION 5ML BOTTLE. OS SCH ×5 (08:11→22:18)
[2017-08-06] MEDS: DORZOLAMIDE 2% OPHTH SOLUTION 10ML BOTTLE. OS SCH ×3 (08:11→22:18)
[2017-08-06] MEDS: QUEtiapine 25 MG TABLET. PO SCH ×3 (08:11→17:37)
[2017-08-06 09:39] LABS: BASO % 1 % (0-3); EOS # 0.1 x10^3/uL (0.0-0.7); EOS % 2 % (0-3); HEMATOCRIT 41.9 % (36.0-47.0); LYMPH # 1.4 x10^3/uL (1.0-4.8); LYMPH % 28 % (24-48); MEAN CORPUSCULAR HEMOGLOBIN 29 pg (25-35); MEAN CORPUSCULAR HGB CONC 33 g/dL (31-37); MEAN CORPUSCULAR VOLUME 88 fL (79-100); MONO # 0.8 x10^3/uL (0.0-1.1); MONO % 15 % (0-9); NEUT # 2.7 x10^3uL (1.8-7.7); NEUT % 54 % (31-73); PLATELET COUNT 171 x10^3/uL (140-400); RED BLOOD COUNT 4.75 x10^6/uL (3.50-5.40); RED CELL DISTRIBUTION WIDTH 14.3 % (11.5-14.5); WHITE BLOOD COUNT 5.1 x10^3/uL (4.0-11.0)
[2017-08-06 09:50] LABS: ALBUMIN 3.1 g/dL (3.4-5.0); ALBUMIN/GLOBULIN RATIO 0.8 (1.0-1.7); ALK PHOS 82 U/L (46-116); ALT (SGPT) 18 U/L (14-59); ANION GAP 7 (6-14); AST (SGOT) 19 U/L (15-37); BLOOD UREA NITROGEN 37 mg/dL (7-20); BUN/CREATININE RATIO 26 (6-20); CALCIUM 8.7 mg/dL (8.5-10.1); CARBON DIOXIDE 29 mmol/L (21-32); CHLORIDE 110 mmol/L (98-107); CREATININE 1.4 mg/dL (0.6-1.0); GFR 35.7; GLUCOSE 85 mg/dL (70-99); MAGNESIUM 2.1 mg/dL (1.8-2.4); POTASSIUM 4.3 mmol/L (3.5-5.1); SODIUM 146 mmol/L (136-145); TOTAL BILIRUBIN 0.3 mg/dL (0.2-1.0)
[2017-08-06 10:01] LABS: VAL ACID 95 mcg/mL (50-100)
[2017-08-06 18:11] VITALS: BP 160/85
[2017-08-06] MEDS: MIRTAZAPINE 7.5 MG TABLET. PO SCH (19:57)
--- NOTE | 2017-08-06 22:12 | PDOC ---
Exam Note: Hiram Note: Please also refer to the separate dictated note~for this date of service dictated separately.~Patient seen individually. Discussed the patient with Nursing staff reviewed the chart.~Reviewed interim history and current functioning. Reviewed vital signs,~Labs/ Radiology~and current medications noted below. Continue current treatment with the changes noted in the dictated addendum note Assessment: Vital Signs: Vital Signs Date Time Temp Pulse Resp B/P (MAP) Pulse Ox O2 Delivery O2 Flow Rate FiO2 08/06/17 19:58 72 160/85 08/06/17 18:11 98.0 24 96 I&O Intake and Output 08/06/17 07:00 Intake Total 1320 ml Balance 1320 ml Intake Oral 1320 ml Labs: Laboratory Tests Test 08/06/17 09:19 White Blood Count 5.1 x10^3/uL (4.0-11.0) Red Blood Count 4.75 x10^6/uL (3.50-5.40) Hemoglobin 14.0 g/dL (12.0-15.5) Hematocrit 41.9 % (36.0-47.0) Mean Corpuscular Volume 88 fL (79-100) Mean Corpuscular Hemoglobin 29 pg (25-35) Mean Corpuscular Hemoglobin Concent 33 g/dL (31-37) Red Cell Distribution Width 14.3 % (11.5-14.5) Platelet Count 171 x10^3/uL (140-400) Neutrophils (%) (Auto) 54 % (31-73) Lymphocytes (%) (Auto) 28 % (24-48) Monocytes (%) (Auto) 15 % (0-9) H Eosinophils (%) (Auto) 2 % (0-3) Basophils (%) (Auto) 1 % (0-3) Neutrophils # (Auto) 2.7 x10^3uL (1.8-7.7) Lymphocytes # (Auto) 1.4 x10^3/uL (1.0-4.8) Monocytes # (Auto) 0.8 x10^3/uL (0.0-1.1) Eosinophils # (Auto) 0.1 x10^3/uL (0.0-0.7) Basophils # (Auto) 0.0 x10^3/uL (0.0-0.2) Sodium Level 146 mmol/L (136-145) H Potassium Level 4.3 mmol/L (3.5-5.1) Chloride Level 110 mmol/L (98-107) H Carbon Dioxide Level 29 mmol/L (21-32) Anion Gap 7 (6-14) Blood Urea Nitrogen 37 mg/dL (7-20) H Creatinine 1.4 mg/dL (0.6-1.0) H Estimated GFR (Cockcroft-Gault) 35.7 BUN/Creatinine Ratio 26 (6-20) H Glucose Level 85 mg/dL (70-99) Calcium Level 8.7 mg/dL (8.5-10.1) Magnesium Level 2.1 mg/dL (1.8-2.4) Total Bilirubin 0.3 mg/dL (0.2-1.0) Aspartate Amino Transferase (AST) 19 U/L (15-37) Alanine Aminotransferase (ALT) 18 U/L (14-59) Alkaline Phosphatase 82 U/L (46-116) Total Protein 7.0 g/dL (6.4-8.2) Albumin 3.1 g/dL (3.4-5.0) L Albumin/Globulin Ratio 0.8 (1.0-1.7) L Valproic Acid Level 95 mcg/mL (50-100) Valproic Acid Last Dose Date 08/05/17 Valproic Acid Last Dose Time 0900 Current Medications: Meds: Current Medications Haloperidol Lactate (Haldol) 2.5 mg 1X ONCE IM Last administered on 07/16/17at 17:15; Start 07/16/17 at 17:15; Stop 07/16/17 at 17:16; Status DC Haloperidol Lactate (Haldol) 5 mg 1X ONCE IM Last administered on 07/16/17at 18 :00; Start 07/16/17 at 18:00; Stop 07/16/17 at 18:10; Status DC Acetaminophen (Tylenol) 650 mg PRN Q6HRS PRN PO PAIN / TEMP Last administered on 07/24/17at 15:56; Start 07/16/17 at 21:15 Multi-Ingredient Ointment (Analgesic [place]) 1 william PRN QID PRN TP MUSCLE PAIN; Start 07/16/17 at 21:15 Al Hydroxide/Mg Hydroxide (Mylanta Plus Xs) 15 ml PRN AFTMEALHC PRN PO DYSPEPSIA; Start 07/16/17 at 21:15 Magnesium Hydroxide (Milk Of Magnesia) 2,400 mg PRN QHS PRN PO CONSTIPATION Last administered on 07/22/17 21:18; Start 07/16/17 at 21:15 Acetaminophen (Tylenol) 650 mg PRN Q6HRS PRN PO PAIN / TEMP; Start 07/16/17 at 23:15; Status UNV Dorzolamide HCl (Trusopt) 1 drop BID OS Last administered on 08/06/17at 08:11; Start 07/17/17 at 09:00 Latanoprost (Xalatan) 1 drop QHS OS Last administered on 08/06/17 00:58; Start 07/17/17 at 21:00 Al Hydroxide/Mg Hydroxide (Mylanta Plus Xs) 15 ml PRN AFTMEALHC PRN PO DYSPEPSIA; Start 07/16/17 at 23:15; Status UNV Magnesium Hydroxide (Milk Of Magnesia) 2,400 mg PRN QHS PRN PO CONSTIPATION; Start 07/16/17 at 23:15; Status UNV Metoprolol Succinate (Toprol Xl) 12.5 mg DAILY PO Last administered on 10:37; Start 07/17/17 at 09:00; Stop 07/26/17 at 16:16; Status DC Polyethylene Glycol (miraLAX) 17 gm DAILY PO Last administered on 08/06/17 08: 10; Start 07/17/17 at 09:00 Prednisolone Acetate (Pred Forte) 1 drop QID OS Last administered on 08/06/17 17:37; Start 07/17/17 at 09:00 Divalproex Sodium (Depakote Sprinkles) 250 mg HS PO Last administered on 19:25; Start 07/17/17 at 21:00; Stop 07/19/17 at 19:45; Status DC Divalproex Sodium (Depakote Sprinkles) 500 mg DAILY PO Last administered on 07/31 07:34; Start 07/17/17 at 09:00; Stop 07/31/17 at 18:25; Status DC Lorazepam (Ativan Intensol) 0.25 mg DAILY@1400 PO Last administered on at 14:35; Start 07/17/17 at 14:00; Stop 07/18/17 at 18:16; Status DC Quetiapine Fumarate (SEROquel) 12.5 mg BID PO Last administered on 07/29/17 08: 21; Start 07/17/17 at 09:00; Stop 07/29/17 at 09:00; Status DC Divalproex Sodium (Depakote Sprinkles) 500 mg HS PO Last administered on at 20:52; Start 07/19/17 at 21:00; Stop 07/31/17 at 18:25; Status DC Olanzapine (ZyPREXA ZYDIS) 1.25 mg PRN Q2HR PRN PO PSYCHOSIS Last administered on 07/31/17 03:23; Start 07/20/17 at 22:45; Stop 08/04/17 at 19:21; Status DC Trazodone HCl (Desyrel) 50 mg PRN QHS PRN PO INSOMNIA, MAY REPEAT X1 Last administered on 08/05/17at 23:14; Start 07/20/17 at 22:45 Metoprolol Tartrate (Lopressor) 12.5 mg BID PO Last administered on 08/06/17 19 :57; Start 07/26/17 at 21:00 Quetiapine Fumarate (SEROquel) 12.5 mg 0900,1300,1700 PO Last administered on 17:08; Start 07/29/17 at 09:00; Stop 08/04/17 at 19:21; Status DC Mirtazapine (Remeron) 7.5 mg QHS PO Last administered on 08/06/17 19:57; Start 07/29/17 at 21:00 Divalproex Sodium (Depakote Sprinkles) 250 mg DAILY PO Last administered on 08/06 08:09; Start 08/01/17 at 09:00 Divalproex Sodium (Depakote Sprinkles) 750 mg HS PO Last administered on 19:58; Start 07/31/17 at 21:00 Vitamin D (Vitamin D3) 50,000 unit WEEKLY PO Last administered on 08/01/17 08: 24; Start 08/01/17 at 09:00 Olanzapine (ZyPREXA ZYDIS) 2.5 mg PRN Q2HR PRN PO PSYCHOSIS Last administered on 08/06/17at 16:13; Start 08/04/17 at 19:30 Quetiapine Fumarate (SEROquel) 12.5 mg DAILY@1300 PO Last administered on at 13:09; Start 08/05/17 at 13:00; Stop 08/05/17 at 19:50; Status DC Quetiapine Fumarate (SEROquel) 25 mg BID@0900,1700 PO Last administered on at 17:59; Start 08/05/17 at 09:00; Stop 08/05/17 at 19:50; Status DC Olanzapine (ZyPREXA ZYDIS) 5 mg 1X ONCE PO Last administered on 08/05/17at 10:12 ; Start 08/05/17 at 09:30; Stop 08/05/17 at 19:50; Status DC Hydralazine HCl (Apresoline) 10 mg TID PO Last administered on 08/06/17at 19:58; Start 08/05/17 at 21:00 Quetiapine Fumarate (SEROquel) 25 mg TID@0900,1300,1700 PO Last administered on 08/06/17at 17:37; Start 08/06/17 at 09:00 Active Scripts Active Reported D3-50 (Cholecalciferol (Vitamin D3)) 50,000 Unit Capsule 50,000 Unit PO WEEKLY Analgesic [place] (Methyl Salicylate/Menthol) 28 Gm Oint...g. 1 Gm TP PRN QID PRN Remeron (Mirtazapine) 15 Mg Tablet 7.5 Mg PO QHS PRN Trazodone Hcl 50 Mg Tablet 50 Mg PO PRN QHS PRN Seroquel (Quetiapine Fumarate) 25 Mg Tablet 25 Mg PO BID@9,1700 Zyprexa (Olanzapine) 2.5 Mg Tablet 2.5 Mg PO PRN Q2HR PRN Xalatan (Latanoprost) 2.5 Ml Drops 1 Drop LEFTEYE QHS Pred Forte (Prednisolone Acetate) 1 Ml Drops.susp 1 Drop OS QID Metoprolol Succinate ( Xl ) (Metoprolol Succinate) 25 Mg Tab.er.24h 12.5 Mg PO DAILY Lorazepam Intensol (Lorazepam) 2 Mg/1 Ml Oral.conc 0.25 Mg PO DAILY@1400 Glycolax (Polyethylene Glycol 3350) 119 Gm Powder 17 Gm PO DAILY Dorzolamide Hcl 10 Ml Drops 1 Drop LEFTEYE BID Depakote Sprinkle (Divalproex Sodium) 125 Mg Cap.sprink 250 Mg PO HS Milk Of Magnesia (Magnesium Hydroxide) 400 Mg/5 Ml Oral.susp 2,400 Mg PO PRN QHS PRN Mag-Al Plus Xs Suspension (Mag Hydrox/Al Hydrox/Simeth) 30 Ml Oral.susp 15 Ml PO PRN AFTMEALHC PRN Depakote Sprinkle (Divalproex Sodium) 125 Mg Cap.sprink 500 Mg PO DAILY Tylenol (Acetaminophen) 325 Mg Tablet 650 Mg PO PRN Q6HRS PRN Seroquel (Quetiapine Fumarate) 25 Mg Tablet 12.5 Mg PO BID I have reviewed the current psychotropics carefully including drug interactions. Risk benefit ratio favors no change other than as noted in my dictated progress note. Diagnosis: Problems: (1) Dementia with behavioral disturbance (2) Anxiety disorder (3) Impulse control disorder (4) Dementia, vascular, with depression (5) Dementia, vascular, with delusions (6) Dementia in Alzheimer's disease with depression (7) Dementia in Alzheimer's disease with delusions SHASHI CRAVEN MD August 06, 2017 22:12
[2017-08-07 06:30] VITALS: BP 109/80
[2017-08-07] MEDS: POLYETHYLENE GLYCOL 3350 17 GM PACKET. PO SCH (09:00)
[2017-08-07] MEDS: DORZOLAMIDE 2% OPHTH SOLUTION 10ML BOTTLE. OS SCH ×2 (09:00→23:15)
[2017-08-07] MEDS: METOPROLOL TART IMMED RELEASE 25 MG TABLET PO SCH ×2 (09:00→20:05)
[2017-08-07] MEDS: DIVALPROEX 125 MG CAP.SPRINK PO SCH ×2 (09:00→20:06)
--- NOTE | 2017-08-07 09:34 | PN ---
DATE: 08/05/2017 PSYCHIATRIC PROGRESS NOTE This is a late entry 08/05/2017 covers elements not covered in my initial note 08/05/2017. SUBJECTIVE: I met with the patient in the evening. We planned to discharge the patient to the half-way, but she was much more agitated, labile, disruptive and discharge was postponed. Discussed with nursing staff and social service staff. She has been combative, yelling, screaming. Received p.r.n. Zyprexa in the morning. Straight cath UA was negative. REVIEW OF SYSTEMS: Ambulation impaired. No CV, , pulmonary, eye, ENT system symptoms on review. Reliability poor. MENTAL STATUS EXAM: Oriented to herself. Insight, judgment, recent and remote memory, attention, concentration, fund of knowledge poor, consistent with her diagnosis mentioned in my initial note. PLAN: Increase Seroquel to 25 mg 3 times a day. Continue rest unchanged including Depakote and level is therapeutic at 90. SHASHI CRAVEN MD DR: MINGO/emmanuel JOB#: [id number] / [id number]
[2017-08-07] MEDS: QUEtiapine 25 MG TABLET. PO SCH ×2 (13:00→17:14)
[2017-08-07] MEDS: prednisoLONE ACETATE 1% OPHTH SUSPENSION 5ML BOTTLE. OS SCH ×3 (13:00→23:15)
[2017-08-07] MEDS: hydrALAZINE 10 MG TABLET PO SCH ×2 (14:00→20:06)
[2017-08-07 18:10] VITALS: BP 126/75
[2017-08-07] MEDS: MIRTAZAPINE 7.5 MG TABLET. PO SCH (20:06)
[2017-08-07] MEDS: traZODone 50 MG TABLET. PO PRN ×2 (20:07→23:16)
--- NOTE | 2017-08-07 20:41 | PDOC ---
Exam Note: Hiram Note: Please also refer to the separate dictated note~for this date of service dictated separately.~Patient seen individually. Discussed the patient with Nursing staff reviewed the chart.~Reviewed interim history and current functioning. Reviewed vital signs,~Labs/ Radiology~and current medications noted below. Continue current treatment with the changes noted in the dictated addendum note Assessment: Vital Signs: Vital Signs Date Time Temp Pulse Resp B/P (MAP) Pulse Ox O2 Delivery O2 Flow Rate FiO2 08/07/17 20:06 70 126/75 08/07/17 18:10 97.4 24 94 08/07/17 06:30 Room Air I&O Intake and Output 08/07/17 07:00 Intake Total 720 ml Balance 720 ml Intake Oral 720 ml # Bowel Movements 1 Current Medications: Meds: Current Medications Haloperidol Lactate (Haldol) 2.5 mg 1X ONCE IM Last administered on 07/16/17 17:15; Start 07/16/17 at 17:15; Stop 07/16/17 at 17:16; Status DC Haloperidol Lactate (Haldol) 5 mg 1X ONCE IM Last administered on 07/16/17at 18 :00; Start 07/16/17 at 18:00; Stop 07/16/17 at 18:10; Status DC Acetaminophen (Tylenol) 650 mg PRN Q6HRS PRN PO PAIN / TEMP Last administered on 07/24/17at 15:56; Start 07/16/17 at 21:15 Multi-Ingredient Ointment (Analgesic [place]) 1 william PRN QID PRN TP MUSCLE PAIN; Start 07/16/17 at 21:15 Al Hydroxide/Mg Hydroxide (Mylanta Plus Xs) 15 ml PRN AFTMEALHC PRN PO DYSPEPSIA; Start 07/16/17 at 21:15 Magnesium Hydroxide (Milk Of Magnesia) 2,400 mg PRN QHS PRN PO CONSTIPATION Last administered on 07/22/17at 21:18; Start 07/16/17 at 21:15 Acetaminophen (Tylenol) 650 mg PRN Q6HRS PRN PO PAIN / TEMP; Start 07/16/17 at 23:15; Status UNV Dorzolamide HCl (Trusopt) 1 drop BID OS Last administered on 08/06/17at 08:11; Start 07/17/17 at 09:00 Latanoprost (Xalatan) 1 drop QHS OS Last administered on 08/06/17at 00:58; Start 07/17/17 at 21:00 Al Hydroxide/Mg Hydroxide (Mylanta Plus Xs) 15 ml PRN AFTMEALHC PRN PO DYSPEPSIA; Start 07/16/17 at 23:15; Status UNV Magnesium Hydroxide (Milk Of Magnesia) 2,400 mg PRN QHS PRN PO CONSTIPATION; Start 07/16/17 at 23:15; Status UNV Metoprolol Succinate (Toprol Xl) 12.5 mg DAILY PO Last administered on at 10:37; Start 07/17/17 at 09:00; Stop 07/26/17 at 16:16; Status DC Polyethylene Glycol (miraLAX) 17 gm DAILY PO Last administered on 08/06/17at 08: 10; Start 07/17/17 at 09:00 Prednisolone Acetate (Pred Forte) 1 drop QID OS Last administered on 08/07/17at 17:14; Start 07/17/17 at 09:00 Divalproex Sodium (Depakote Sprinkles) 250 mg HS PO Last administered on 19:25; Start 07/17/17 at 21:00; Stop 07/19/17 at 19:45; Status DC Divalproex Sodium (Depakote Sprinkles) 500 mg DAILY PO Last administered on 07/31at 07:34; Start 07/17/17 at 09:00; Stop 07/31/17 at 18:25; Status DC Lorazepam (Ativan Intensol) 0.25 mg DAILY@1400 PO Last administered on at 14:35; Start 07/17/17 at 14:00; Stop 07/18/17 at 18:16; Status DC Quetiapine Fumarate (SEROquel) 12.5 mg BID PO Last administered on 07/29/17 08: 21; Start 07/17/17 at 09:00; Stop 07/29/17 at 09:00; Status DC Divalproex Sodium (Depakote Sprinkles) 500 mg HS PO Last administered on at 20:52; Start 07/19/17 at 21:00; Stop 07/31/17 at 18:25; Status DC Olanzapine (ZyPREXA ZYDIS) 1.25 mg PRN Q2HR PRN PO PSYCHOSIS Last administered on 07/31/17 03:23; Start 07/20/17 at 22:45; Stop 08/04/17 at 19:21; Status DC Trazodone HCl (Desyrel) 50 mg PRN QHS PRN PO INSOMNIA, MAY REPEAT X1 Last administered on 08/07/17 20:07; Start 07/20/17 at 22:45 Metoprolol Tartrate (Lopressor) 12.5 mg BID PO Last administered on 08/07/17 20:05; Start 07/26/17 at 21:00 Quetiapine Fumarate (SEROquel) 12.5 mg 0900,1300,1700 PO Last administered on 17:08; Start 07/29/17 at 09:00; Stop 08/04/17 at 19:21; Status DC Mirtazapine (Remeron) 7.5 mg QHS PO Last administered on 08/07/17 20:06; Start 07/29/17 at 21:00 Divalproex Sodium (Depakote Sprinkles) 250 mg DAILY PO Last administered on 08/06 08:09; Start 08/01/17 at 09:00 Divalproex Sodium (Depakote Sprinkles) 750 mg HS PO Last administered on 20:06; Start 07/31/17 at 21:00 Vitamin D (Vitamin D3) 50,000 unit WEEKLY PO Last administered on 08/01/17 08: 24; Start 08/01/17 at 09:00 Olanzapine (ZyPREXA ZYDIS) 2.5 mg PRN Q2HR PRN PO PSYCHOSIS Last administered on 08/06/17 16:13; Start 08/04/17 at 19:30 Quetiapine Fumarate (SEROquel) 12.5 mg DAILY@1300 PO Last administered on 13:09; Start 08/05/17 at 13:00; Stop 08/05/17 at 19:50; Status DC Quetiapine Fumarate (SEROquel) 25 mg BID@0900,1700 PO Last administered on 17:59; Start 08/05/17 at 09:00; Stop 08/05/17 at 19:50; Status DC Olanzapine (ZyPREXA ZYDIS) 5 mg 1X ONCE PO Last administered on 08/05/17at 10:12 ; Start 08/05/17 at 09:30; Stop 08/05/17 at 19:50; Status DC Hydralazine HCl (Apresoline) 10 mg TID PO Last administered on 08/07/17at 20:06 ; Start 08/05/17 at 21:00 Quetiapine Fumarate (SEROquel) 25 mg TID@0900,1300,1700 PO Last administered on 08/07/17at 17:14; Start 08/06/17 at 09:00 Active Scripts Active Reported D3-50 (Cholecalciferol (Vitamin D3)) 50,000 Unit Capsule 50,000 Unit PO WEEKLY Analgesic [place] (Methyl Salicylate/Menthol) 28 Gm Oint...g. 1 Gm TP PRN QID PRN Remeron (Mirtazapine) 15 Mg Tablet 7.5 Mg PO QHS PRN Trazodone Hcl 50 Mg Tablet 50 Mg PO PRN QHS PRN Seroquel (Quetiapine Fumarate) 25 Mg Tablet 25 Mg PO BID@9,1700 Zyprexa (Olanzapine) 2.5 Mg Tablet 2.5 Mg PO PRN Q2HR PRN Xalatan (Latanoprost) 2.5 Ml Drops 1 Drop LEFTEYE QHS Pred Forte (Prednisolone Acetate) 1 Ml Drops.susp 1 Drop OS QID Metoprolol Succinate ( Xl ) (Metoprolol Succinate) 25 Mg Tab.er.24h 12.5 Mg PO DAILY Lorazepam Intensol (Lorazepam) 2 Mg/1 Ml Oral.conc 0.25 Mg PO DAILY@1400 Glycolax (Polyethylene Glycol 3350) 119 Gm Powder 17 Gm PO DAILY Dorzolamide Hcl 10 Ml Drops 1 Drop LEFTEYE BID Depakote Sprinkle (Divalproex Sodium) 125 Mg Cap.sprink 250 Mg PO HS Milk Of Magnesia (Magnesium Hydroxide) 400 Mg/5 Ml Oral.susp 2,400 Mg PO PRN QHS PRN Mag-Al Plus Xs Suspension (Mag Hydrox/Al Hydrox/Simeth) 30 Ml Oral.susp 15 Ml PO PRN AFTMEALHC PRN Depakote Sprinkle (Divalproex Sodium) 125 Mg Cap.sprink 500 Mg PO DAILY Tylenol (Acetaminophen) 325 Mg Tablet 650 Mg PO PRN Q6HRS PRN Seroquel (Quetiapine Fumarate) 25 Mg Tablet 12.5 Mg PO BID I have reviewed the current psychotropics carefully including drug interactions. Risk benefit ratio favors no change other than as noted in my dictated progress note. Diagnosis: Problems: (1) Dementia with behavioral disturbance (2) Urinary tract infection (3) Anxiety disorder (4) Impulse control disorder (5) Dementia, vascular, with depression (6) Dementia, vascular, with delusions (7) Dementia in Alzheimer's disease with depression (8) Dementia in Alzheimer's disease with delusions SHASHI CRAVEN MD August 07, 2017 20:41
[2017-08-07] MEDS: LATANOPROST 0.005% OPHTH SOLUTION 2.5ML BOTTLE. OS SCH (23:50)
[2017-08-08 05:24] VITALS: BP 152/55
[2017-08-08] MEDS: METOPROLOL TART IMMED RELEASE 25 MG TABLET PO SCH ×2 (09:31→20:04)
[2017-08-08] MEDS: DIVALPROEX 125 MG CAP.SPRINK PO SCH ×2 (09:33→20:03)
[2017-08-08] MEDS: hydrALAZINE 10 MG TABLET PO SCH ×3 (09:33→20:04)
[2017-08-08] MEDS: QUEtiapine 25 MG TABLET. PO SCH ×3 (09:33→17:23)
[2017-08-08] MEDS: POLYETHYLENE GLYCOL 3350 17 GM PACKET. PO SCH (09:33)
[2017-08-08] MEDS: CHOLECALCIFEROL (VITAMIN D3) 50,000 UNIT CAPSULE PO SCH (09:36)
[2017-08-08] MEDS: prednisoLONE ACETATE 1% OPHTH SUSPENSION 5ML BOTTLE. OS SCH ×4 (09:36→20:05)
[2017-08-08] MEDS: DORZOLAMIDE 2% OPHTH SOLUTION 10ML BOTTLE. OS SCH ×2 (09:36→20:02)
[2017-08-08 16:28] VITALS: BP 139/72
[2017-08-08] MEDS: LATANOPROST 0.005% OPHTH SOLUTION 2.5ML BOTTLE. OS SCH (20:02)
[2017-08-08] MEDS: traZODone 50 MG TABLET. PO PRN (20:02)
[2017-08-08] MEDS: MIRTAZAPINE 7.5 MG TABLET. PO SCH (20:03)
--- NOTE | 2017-08-08 20:41 | PDOC ---
Exam Note: Hiram Note: Please also refer to the separate dictated note~for this date of service dictated separately.~Patient seen individually. Discussed the patient with Nursing staff reviewed the chart.~Reviewed interim history and current functioning. Reviewed vital signs,~Labs/ Radiology~and current medications noted below. Continue current treatment with the changes noted in the dictated addendum note Assessment: Vital Signs: Vital Signs Date Time Temp Pulse Resp B/P (MAP) Pulse Ox O2 Delivery O2 Flow Rate FiO2 08/08/17 20:04 65 139/72 08/08/17 16:28 95.7 20 99 08/07/17 06:30 Room Air I&O Intake and Output 08/08/17 07:00 Intake Total 360 ml Balance 360 ml Intake Oral 360 ml # Bowel Movements 1 Current Medications: Meds: Current Medications Haloperidol Lactate (Haldol) 2.5 mg 1X ONCE IM Last administered on 07/16/17 17:15; Start 07/16/17 at 17:15; Stop 07/16/17 at 17:16; Status DC Haloperidol Lactate (Haldol) 5 mg 1X ONCE IM Last administered on 07/16/17at 18 :00; Start 07/16/17 at 18:00; Stop 07/16/17 at 18:10; Status DC Acetaminophen (Tylenol) 650 mg PRN Q6HRS PRN PO PAIN / TEMP Last administered on 07/24/17at 15:56; Start 07/16/17 at 21:15 Multi-Ingredient Ointment (Analgesic [place]) 1 william PRN QID PRN TP MUSCLE PAIN; Start 07/16/17 at 21:15 Al Hydroxide/Mg Hydroxide (Mylanta Plus Xs) 15 ml PRN AFTMEALHC PRN PO DYSPEPSIA; Start 07/16/17 at 21:15 Magnesium Hydroxide (Milk Of Magnesia) 2,400 mg PRN QHS PRN PO CONSTIPATION Last administered on 07/22/17at 21:18; Start 07/16/17 at 21:15 Acetaminophen (Tylenol) 650 mg PRN Q6HRS PRN PO PAIN / TEMP; Start 07/16/17 at 23:15; Status UNV Dorzolamide HCl (Trusopt) 1 drop BID OS Last administered on 08/08/17at 20:02; Start 07/17/17 at 09:00 Latanoprost (Xalatan) 1 drop QHS OS Last administered on 08/08/17 20:02; Start 07/17/17 at 21:00 Al Hydroxide/Mg Hydroxide (Mylanta Plus Xs) 15 ml PRN AFTMEALHC PRN PO DYSPEPSIA; Start 07/16/17 at 23:15; Status UNV Magnesium Hydroxide (Milk Of Magnesia) 2,400 mg PRN QHS PRN PO CONSTIPATION; Start 07/16/17 at 23:15; Status UNV Metoprolol Succinate (Toprol Xl) 12.5 mg DAILY PO Last administered on at 10:37; Start 07/17/17 at 09:00; Stop 07/26/17 at 16:16; Status DC Polyethylene Glycol (miraLAX) 17 gm DAILY PO Last administered on 08/08/17 09: 33; Start 07/17/17 at 09:00 Prednisolone Acetate (Pred Forte) 1 drop QID OS Last administered on 08/08/17 20:05; Start 07/17/17 at 09:00 Divalproex Sodium (Depakote Sprinkles) 250 mg HS PO Last administered on 19:25; Start 07/17/17 at 21:00; Stop 07/19/17 at 19:45; Status DC Divalproex Sodium (Depakote Sprinkles) 500 mg DAILY PO Last administered on 07/31 07:34; Start 07/17/17 at 09:00; Stop 07/31/17 at 18:25; Status DC Lorazepam (Ativan Intensol) 0.25 mg DAILY@1400 PO Last administered on at 14:35; Start 07/17/17 at 14:00; Stop 07/18/17 at 18:16; Status DC Quetiapine Fumarate (SEROquel) 12.5 mg BID PO Last administered on 07/29/17 08: 21; Start 07/17/17 at 09:00; Stop 07/29/17 at 09:00; Status DC Divalproex Sodium (Depakote Sprinkles) 500 mg HS PO Last administered on at 20:52; Start 07/19/17 at 21:00; Stop 07/31/17 at 18:25; Status DC Olanzapine (ZyPREXA ZYDIS) 1.25 mg PRN Q2HR PRN PO PSYCHOSIS Last administered on 07/31/17 03:23; Start 07/20/17 at 22:45; Stop 08/04/17 at 19:21; Status DC Trazodone HCl (Desyrel) 50 mg PRN QHS PRN PO INSOMNIA, MAY REPEAT X1 Last administered on 08/08/17 20:02; Start 07/20/17 at 22:45 Metoprolol Tartrate (Lopressor) 12.5 mg BID PO Last administered on 08/08/17 20:04; Start 07/26/17 at 21:00 Quetiapine Fumarate (SEROquel) 12.5 mg 0900,1300,1700 PO Last administered on 17:08; Start 07/29/17 at 09:00; Stop 08/04/17 at 19:21; Status DC Mirtazapine (Remeron) 7.5 mg QHS PO Last administered on 08/08/17 20:03; Start 07/29/17 at 21:00 Divalproex Sodium (Depakote Sprinkles) 250 mg DAILY PO Last administered on 09:33; Start 08/01/17 at 09:00 Divalproex Sodium (Depakote Sprinkles) 750 mg HS PO Last administered on 20:03; Start 07/31/17 at 21:00 Vitamin D (Vitamin D3) 50,000 unit WEEKLY PO Last administered on 08/08/17 09: 36; Start 08/01/17 at 09:00 Olanzapine (ZyPREXA ZYDIS) 2.5 mg PRN Q2HR PRN PO PSYCHOSIS Last administered on 08/08/17 13:38; Start 08/04/17 at 19:30 Quetiapine Fumarate (SEROquel) 12.5 mg DAILY@1300 PO Last administered on 13:09; Start 08/05/17 at 13:00; Stop 08/05/17 at 19:50; Status DC Quetiapine Fumarate (SEROquel) 25 mg BID@0900,1700 PO Last administered on 17:59; Start 08/05/17 at 09:00; Stop 08/05/17 at 19:50; Status DC Olanzapine (ZyPREXA ZYDIS) 5 mg 1X ONCE PO Last administered on 08/05/17at 10:12 ; Start 08/05/17 at 09:30; Stop 08/05/17 at 19:50; Status DC Hydralazine HCl (Apresoline) 10 mg TID PO Last administered on 08/08/17at 20:04 ; Start 08/05/17 at 21:00 Quetiapine Fumarate (SEROquel) 25 mg TID@0900,1300,1700 PO Last administered on 08/08/17at 17:23; Start 08/06/17 at 09:00 Active Scripts Active Reported D3-50 (Cholecalciferol (Vitamin D3)) 50,000 Unit Capsule 50,000 Unit PO WEEKLY Analgesic [place] (Methyl Salicylate/Menthol) 28 Gm Oint...g. 1 Gm TP PRN QID PRN Remeron (Mirtazapine) 15 Mg Tablet 7.5 Mg PO QHS PRN Trazodone Hcl 50 Mg Tablet 50 Mg PO PRN QHS PRN Seroquel (Quetiapine Fumarate) 25 Mg Tablet 25 Mg PO BID@9,1700 Zyprexa (Olanzapine) 2.5 Mg Tablet 2.5 Mg PO PRN Q2HR PRN Xalatan (Latanoprost) 2.5 Ml Drops 1 Drop LEFTEYE QHS Pred Forte (Prednisolone Acetate) 1 Ml Drops.susp 1 Drop OS QID Metoprolol Succinate ( Xl ) (Metoprolol Succinate) 25 Mg Tab.er.24h 12.5 Mg PO DAILY Lorazepam Intensol (Lorazepam) 2 Mg/1 Ml Oral.conc 0.25 Mg PO DAILY@1400 Glycolax (Polyethylene Glycol 3350) 119 Gm Powder 17 Gm PO DAILY Dorzolamide Hcl 10 Ml Drops 1 Drop LEFTEYE BID Depakote Sprinkle (Divalproex Sodium) 125 Mg Cap.sprink 250 Mg PO HS Milk Of Magnesia (Magnesium Hydroxide) 400 Mg/5 Ml Oral.susp 2,400 Mg PO PRN QHS PRN Mag-Al Plus Xs Suspension (Mag Hydrox/Al Hydrox/Simeth) 30 Ml Oral.susp 15 Ml PO PRN AFTMEALHC PRN Depakote Sprinkle (Divalproex Sodium) 125 Mg Cap.sprink 500 Mg PO DAILY Tylenol (Acetaminophen) 325 Mg Tablet 650 Mg PO PRN Q6HRS PRN Seroquel (Quetiapine Fumarate) 25 Mg Tablet 12.5 Mg PO BID I have reviewed the current psychotropics carefully including drug interactions. Risk benefit ratio favors no change other than as noted in my dictated progress note. Diagnosis: Problems: (1) Dementia with behavioral disturbance (2) Urinary tract infection (3) Anxiety disorder (4) Impulse control disorder (5) Dementia, vascular, with depression (6) Dementia, vascular, with delusions (7) Dementia in Alzheimer's disease with depression (8) Dementia in Alzheimer's disease with delusions SHASHI CRAVEN MD August 08, 2017 20:41
[2017-08-09 07:21] VITALS: BP 156/85
[2017-08-09] MEDS: DIVALPROEX 125 MG CAP.SPRINK PO SCH ×2 (09:08→20:17)
[2017-08-09] MEDS: QUEtiapine 25 MG TABLET. PO SCH ×3 (09:09→18:14)
[2017-08-09] MEDS: DORZOLAMIDE 2% OPHTH SOLUTION 10ML BOTTLE. OS SCH ×3 (09:09→21:00)
[2017-08-09] MEDS: hydrALAZINE 10 MG TABLET PO SCH ×3 (09:09→20:19)
[2017-08-09] MEDS: POLYETHYLENE GLYCOL 3350 17 GM PACKET. PO SCH (09:09)
[2017-08-09] MEDS: METOPROLOL TART IMMED RELEASE 25 MG TABLET PO SCH ×2 (09:09→20:19)
[2017-08-09] MEDS: prednisoLONE ACETATE 1% OPHTH SUSPENSION 5ML BOTTLE. OS SCH ×5 (09:10→21:00)
[2017-08-09 16:02] VITALS: BP 151/79
--- NOTE | 2017-08-09 19:45 | PN ---
DATE: 08/07/2017 PSYCHIATRIC PROGRESS NOTE This is a late entry for 08/07/2017, covers elements not covered in my initial note of 08/07/2017. SUBJECTIVE: I met with the patient in the evening and staffed at a treatment team meeting with the entire team in the morning. The patient slept 7 hours. She has been yelling out, screaming at times, but not physically aggressive. She does do better in a Broda chair, rather than a wheelchair and I would recommend she have this as part of her psychiatric management back at the custodial on account of fall interventions due to behaviors consequent to her psychiatric disorder. Appetite 90%. REVIEW OF SYSTEMS: Ambulation impaired, in Broda chair. No CV, , pulmonary, eye, ENT system symptoms on review. MENTAL STATUS EXAM: Oriented to herself. Insight, judgment, recent and remote memory, attention, concentration, fund of knowledge poor, consistent with her diagnosis mentioned in my initial note. PLAN: Unchanged from initial note. May need to increase Seroquel further. MAN April CRAVEN MD DR: MINGO/emmanuel JOB#: [id number] / [id number]
--- NOTE | 2017-08-09 19:45 | PN ---
DATE: 08/06/2017 This is a late entry, 08/06/2017, covers the elements not covered in my initial note, 08/06/2017. SUBJECTIVE: I met with the patient in the evening. The patient slept 3-1/4 hours. At night, she was trying to climb out of the Broda chair, screaming, doing showers, quite labile, somewhat drowsy in the morning, received Zyprexa at 1600 for agitation. Ambulation impaired. REVIEW OF SYSTEMS: No CV, , pulmonary, eye, ENT system symptoms on review. Reliability poor. MENTAL STATUS EXAM: Oriented to herself. Insight, judgment, recent and remote memory, attention, concentration, fund of knowledge poor, consistent with her diagnosis as mentioned in my initial note. PLAN: Continue current psychotropics. Valproic acid level is therapeutic. We will increase the Seroquel. We will reassess in a day or so. SHASHI CRAVEN MD DR: MINGO/emmanuel JOB#: [id number] / [id number]
[2017-08-09] MEDS: LATANOPROST 0.005% OPHTH SOLUTION 2.5ML BOTTLE. OS SCH ×2 (20:16→21:00)
[2017-08-09] MEDS: MIRTAZAPINE 7.5 MG TABLET. PO SCH (20:17)
[2017-08-09] MEDS: traZODone 50 MG TABLET. PO PRN (20:17)
[2017-08-09] MEDS: SERTRALINE 25 MG TABLET. PO SCH (20:23)
--- NOTE | 2017-08-09 22:45 | PDOC ---
Exam Note: Hiram Note: Please also refer to the separate dictated note~for this date of service dictated separately.~Patient seen individually. Discussed the patient with Nursing staff reviewed the chart.~Reviewed interim history and current functioning. Reviewed vital signs,~Labs/ Radiology~and current medications noted below. Continue current treatment with the changes noted in the dictated addendum note Assessment: Vital Signs: Vital Signs Date Time Temp Pulse Resp B/P (MAP) Pulse Ox O2 Delivery O2 Flow Rate FiO2 08/09/17 20:19 76 151/79 08/09/17 16:02 97.6 18 93 08/09/17 07:21 Room Air I&O Intake and Output 08/09/17 07:00 Intake Total 1200 ml Balance 1200 ml Intake Oral 1200 ml # Voids 2 Current Medications: Meds: Current Medications Haloperidol Lactate (Haldol) 2.5 mg 1X ONCE IM Last administered on 07/16/17at 17:15; Start 07/16/17 at 17:15; Stop 07/16/17 at 17:16; Status DC Haloperidol Lactate (Haldol) 5 mg 1X ONCE IM Last administered on 07/16/17at 18 :00; Start 07/16/17 at 18:00; Stop 07/16/17 at 18:10; Status DC Acetaminophen (Tylenol) 650 mg PRN Q6HRS PRN PO PAIN / TEMP Last administered on 07/24/17at 15:56; Start 07/16/17 at 21:15 Multi-Ingredient Ointment (Analgesic [place]) 1 william PRN QID PRN TP MUSCLE PAIN; Start 07/16/17 at 21:15 Al Hydroxide/Mg Hydroxide (Mylanta Plus Xs) 15 ml PRN AFTMEALHC PRN PO DYSPEPSIA; Start 07/16/17 at 21:15 Magnesium Hydroxide (Milk Of Magnesia) 2,400 mg PRN QHS PRN PO CONSTIPATION Last administered on 07/22/17at 21:18; Start 07/16/17 at 21:15 Acetaminophen (Tylenol) 650 mg PRN Q6HRS PRN PO PAIN / TEMP; Start 07/16/17 at 23:15; Status UNV Dorzolamide HCl (Trusopt) 1 drop BID OS Last administered on 08/09/17at 09:09; Start 07/17/17 at 09:00 Latanoprost (Xalatan) 1 drop QHS OS Last administered on 08/08/17 20:02; Start 07/17/17 at 21:00 Al Hydroxide/Mg Hydroxide (Mylanta Plus Xs) 15 ml PRN AFTMEALHC PRN PO DYSPEPSIA; Start 07/16/17 at 23:15; Status UNV Magnesium Hydroxide (Milk Of Magnesia) 2,400 mg PRN QHS PRN PO CONSTIPATION; Start 07/16/17 at 23:15; Status UNV Metoprolol Succinate (Toprol Xl) 12.5 mg DAILY PO Last administered on at 10:37; Start 07/17/17 at 09:00; Stop 07/26/17 at 16:16; Status DC Polyethylene Glycol (miraLAX) 17 gm DAILY PO Last administered on 08/09/17at 09: 09; Start 07/17/17 at 09:00 Prednisolone Acetate (Pred Forte) 1 drop QID OS Last administered on 08/09/17at 18:15; Start 07/17/17 at 09:00 Divalproex Sodium (Depakote Sprinkles) 250 mg HS PO Last administered on 19:25; Start 07/17/17 at 21:00; Stop 07/19/17 at 19:45; Status DC Divalproex Sodium (Depakote Sprinkles) 500 mg DAILY PO Last administered on 07/31at 07:34; Start 07/17/17 at 09:00; Stop 07/31/17 at 18:25; Status DC Lorazepam (Ativan Intensol) 0.25 mg DAILY@1400 PO Last administered on at 14:35; Start 07/17/17 at 14:00; Stop 07/18/17 at 18:16; Status DC Quetiapine Fumarate (SEROquel) 12.5 mg BID PO Last administered on 07/29/17 08: 21; Start 07/17/17 at 09:00; Stop 07/29/17 at 09:00; Status DC Divalproex Sodium (Depakote Sprinkles) 500 mg HS PO Last administered on at 20:52; Start 07/19/17 at 21:00; Stop 07/31/17 at 18:25; Status DC Olanzapine (ZyPREXA ZYDIS) 1.25 mg PRN Q2HR PRN PO PSYCHOSIS Last administered on 07/31/17 03:23; Start 07/20/17 at 22:45; Stop 08/04/17 at 19:21; Status DC Trazodone HCl (Desyrel) 50 mg PRN QHS PRN PO INSOMNIA, MAY REPEAT X1 Last administered on 08/09/17 20:17; Start 07/20/17 at 22:45 Metoprolol Tartrate (Lopressor) 12.5 mg BID PO Last administered on 08/09/17 20:19; Start 07/26/17 at 21:00 Quetiapine Fumarate (SEROquel) 12.5 mg 0900,1300,1700 PO Last administered on 17:08; Start 07/29/17 at 09:00; Stop 08/04/17 at 19:21; Status DC Mirtazapine (Remeron) 7.5 mg QHS PO Last administered on 08/09/17 20:17; Start 07/29/17 at 21:00 Divalproex Sodium (Depakote Sprinkles) 250 mg DAILY PO Last administered on 09:08; Start 08/01/17 at 09:00 Divalproex Sodium (Depakote Sprinkles) 750 mg HS PO Last administered on 20:17; Start 07/31/17 at 21:00 Vitamin D (Vitamin D3) 50,000 unit WEEKLY PO Last administered on 08/08/17 09: 36; Start 08/01/17 at 09:00 Olanzapine (ZyPREXA ZYDIS) 2.5 mg PRN Q2HR PRN PO PSYCHOSIS Last administered on 08/08/17 13:38; Start 08/04/17 at 19:30 Quetiapine Fumarate (SEROquel) 12.5 mg DAILY@1300 PO Last administered on 13:09; Start 08/05/17 at 13:00; Stop 08/05/17 at 19:50; Status DC Quetiapine Fumarate (SEROquel) 25 mg BID@0900,1700 PO Last administered on 17:59; Start 08/05/17 at 09:00; Stop 08/05/17 at 19:50; Status DC Olanzapine (ZyPREXA ZYDIS) 5 mg 1X ONCE PO Last administered on 08/05/17at 10:12 ; Start 08/05/17 at 09:30; Stop 08/05/17 at 19:50; Status DC Hydralazine HCl (Apresoline) 10 mg TID PO Last administered on 08/09/17at 20:19 ; Start 08/05/17 at 21:00 Quetiapine Fumarate (SEROquel) 25 mg TID@0900,1300,1700 PO Last administered on 08/09/17at 18:14; Start 08/06/17 at 09:00 Sertraline HCl (Zoloft) 25 mg DAILYWSUP PO Last administered on 08/09/17at 20:23 ; Start 08/09/17 at 21:00 Active Scripts Active Reported D3-50 (Cholecalciferol (Vitamin D3)) 50,000 Unit Capsule 50,000 Unit PO WEEKLY Analgesic [place] (Methyl Salicylate/Menthol) 28 Gm Oint...g. 1 Gm TP PRN QID PRN Remeron (Mirtazapine) 15 Mg Tablet 7.5 Mg PO QHS PRN Trazodone Hcl 50 Mg Tablet 50 Mg PO PRN QHS PRN Seroquel (Quetiapine Fumarate) 25 Mg Tablet 25 Mg PO BID@9,1700 Zyprexa (Olanzapine) 2.5 Mg Tablet 2.5 Mg PO PRN Q2HR PRN Xalatan (Latanoprost) 2.5 Ml Drops 1 Drop LEFTEYE QHS Pred Forte (Prednisolone Acetate) 1 Ml Drops.susp 1 Drop OS QID Metoprolol Succinate ( Xl ) (Metoprolol Succinate) 25 Mg Tab.er.24h 12.5 Mg PO DAILY Lorazepam Intensol (Lorazepam) 2 Mg/1 Ml Oral.conc 0.25 Mg PO DAILY@1400 Glycolax (Polyethylene Glycol 3350) 119 Gm Powder 17 Gm PO DAILY Dorzolamide Hcl 10 Ml Drops 1 Drop LEFTEYE BID Depakote Sprinkle (Divalproex Sodium) 125 Mg Cap.sprink 250 Mg PO HS Milk Of Magnesia (Magnesium Hydroxide) 400 Mg/5 Ml Oral.susp 2,400 Mg PO PRN QHS PRN Mag-Al Plus Xs Suspension (Mag Hydrox/Al Hydrox/Simeth) 30 Ml Oral.susp 15 Ml PO PRN AFTMEALHC PRN Depakote Sprinkle (Divalproex Sodium) 125 Mg Cap.sprink 500 Mg PO DAILY Tylenol (Acetaminophen) 325 Mg Tablet 650 Mg PO PRN Q6HRS PRN Seroquel (Quetiapine Fumarate) 25 Mg Tablet 12.5 Mg PO BID I have reviewed the current psychotropics carefully including drug interactions. Risk benefit ratio favors no change other than as noted in my dictated progress note. 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
[2017-08-10] MEDS: traZODone 50 MG TABLET. PO PRN (00:59)
[2017-08-10 05:27] VITALS: BP 100/53
[2017-08-10] MEDS: prednisoLONE ACETATE 1% OPHTH SUSPENSION 5ML BOTTLE. OS SCH ×5 (09:03→21:00)
[2017-08-10] MEDS: DORZOLAMIDE 2% OPHTH SOLUTION 10ML BOTTLE. OS SCH ×3 (09:03→21:00)
[2017-08-10] MEDS: DIVALPROEX 125 MG CAP.SPRINK PO SCH ×2 (09:04→20:16)
[2017-08-10] MEDS: hydrALAZINE 10 MG TABLET PO SCH ×4 (09:05→20:18)
[2017-08-10] MEDS: METOPROLOL TART IMMED RELEASE 25 MG TABLET PO SCH ×2 (09:05→20:17)
[2017-08-10] MEDS: QUEtiapine 25 MG TABLET. PO SCH ×3 (09:06→17:00)
[2017-08-10] MEDS: POLYETHYLENE GLYCOL 3350 17 GM PACKET. PO SCH (09:06)
[2017-08-10 16:39] VITALS: BP 168/93
[2017-08-10] MEDS: QUEtiapine 50 MG TABLET. PO SCH (18:05)
[2017-08-10] MEDS: SERTRALINE 25 MG TABLET. PO SCH (18:05)
[2017-08-10] MEDS: MIRTAZAPINE 7.5 MG TABLET. PO SCH (20:16)
[2017-08-10] MEDS: LATANOPROST 0.005% OPHTH SOLUTION 2.5ML BOTTLE. OS SCH ×2 (20:19→21:00)
--- NOTE | 2017-08-10 20:43 | PDOC ---
Exam Note: Hiram Note: Please also refer to the separate dictated note~for this date of service dictated separately.~Patient seen individually. Discussed the patient with Nursing staff reviewed the chart.~Reviewed interim history and current functioning. Reviewed vital signs,~Labs/ Radiology~and current medications noted below. Continue current treatment with the changes noted in the dictated addendum note Assessment: Vital Signs: Vital Signs Date Time Temp Pulse Resp B/P (MAP) Pulse Ox O2 Delivery O2 Flow Rate FiO2 08/10/17 20:18 71 168/93 08/10/17 16:39 98.2 18 94 08/09/17 07:21 Room Air I&O Intake and Output 08/10/17 07:00 Intake Total 960 ml Balance 960 ml Intake Oral 960 ml # Voids 2 # Bowel Movements 2 Current Medications: Meds: Current Medications Haloperidol Lactate (Haldol) 2.5 mg 1X ONCE IM Last administered on 07/16/17at 17:15; Start 07/16/17 at 17:15; Stop 07/16/17 at 17:16; Status DC Haloperidol Lactate (Haldol) 5 mg 1X ONCE IM Last administered on 07/16/17at 18 :00; Start 07/16/17 at 18:00; Stop 07/16/17 at 18:10; Status DC Acetaminophen (Tylenol) 650 mg PRN Q6HRS PRN PO PAIN / TEMP Last administered on 07/24/17at 15:56; Start 07/16/17 at 21:15 Multi-Ingredient Ointment (Analgesic [place]) 1 william PRN QID PRN TP MUSCLE PAIN; Start 07/16/17 at 21:15 Al Hydroxide/Mg Hydroxide (Mylanta Plus Xs) 15 ml PRN AFTMEALHC PRN PO DYSPEPSIA; Start 07/16/17 at 21:15 Magnesium Hydroxide (Milk Of Magnesia) 2,400 mg PRN QHS PRN PO CONSTIPATION Last administered on 07/22/17at 21:18; Start 07/16/17 at 21:15 Acetaminophen (Tylenol) 650 mg PRN Q6HRS PRN PO PAIN / TEMP; Start 07/16/17 at 23:15; Status UNV Dorzolamide HCl (Trusopt) 1 drop BID OS Last administered on 08/10/17at 20:19; Start 07/17/17 at 09:00 Latanoprost (Xalatan) 1 drop QHS OS Last administered on 08/10/17 20:19; Start 07/17/17 at 21:00 Al Hydroxide/Mg Hydroxide (Mylanta Plus Xs) 15 ml PRN AFTMEALHC PRN PO DYSPEPSIA; Start 07/16/17 at 23:15; Status UNV Magnesium Hydroxide (Milk Of Magnesia) 2,400 mg PRN QHS PRN PO CONSTIPATION; Start 07/16/17 at 23:15; Status UNV Metoprolol Succinate (Toprol Xl) 12.5 mg DAILY PO Last administered on at 10:37; Start 07/17/17 at 09:00; Stop 07/26/17 at 16:16; Status DC Polyethylene Glycol (miraLAX) 17 gm DAILY PO Last administered on 08/10/17 09: 06; Start 07/17/17 at 09:00 Prednisolone Acetate (Pred Forte) 1 drop QID OS Last administered on 08/10/17 20:19; Start 07/17/17 at 09:00 Divalproex Sodium (Depakote Sprinkles) 250 mg HS PO Last administered on 19:25; Start 07/17/17 at 21:00; Stop 07/19/17 at 19:45; Status DC Divalproex Sodium (Depakote Sprinkles) 500 mg DAILY PO Last administered on 07/31 07:34; Start 07/17/17 at 09:00; Stop 07/31/17 at 18:25; Status DC Lorazepam (Ativan Intensol) 0.25 mg DAILY@1400 PO Last administered on at 14:35; Start 07/17/17 at 14:00; Stop 07/18/17 at 18:16; Status DC Quetiapine Fumarate (SEROquel) 12.5 mg BID PO Last administered on 07/29/17 08: 21; Start 07/17/17 at 09:00; Stop 07/29/17 at 09:00; Status DC Divalproex Sodium (Depakote Sprinkles) 500 mg HS PO Last administered on 20:52; Start 07/19/17 at 21:00; Stop 07/31/17 at 18:25; Status DC Olanzapine (ZyPREXA ZYDIS) 1.25 mg PRN Q2HR PRN PO PSYCHOSIS Last administered on 07/31/17 03:23; Start 07/20/17 at 22:45; Stop 08/04/17 at 19:21; Status DC Trazodone HCl (Desyrel) 50 mg PRN QHS PRN PO INSOMNIA, MAY REPEAT X1 Last administered on 08/10/17 00:59; Start 07/20/17 at 22:45 Metoprolol Tartrate (Lopressor) 12.5 mg BID PO Last administered on 08/10/17 20:17; Start 07/26/17 at 21:00 Quetiapine Fumarate (SEROquel) 12.5 mg 0900,1300,1700 PO Last administered on 17:08; Start 07/29/17 at 09:00; Stop 08/04/17 at 19:21; Status DC Mirtazapine (Remeron) 7.5 mg QHS PO Last administered on 08/10/17 20:16; Start 07/29/17 at 21:00 Divalproex Sodium (Depakote Sprinkles) 250 mg DAILY PO Last administered on 09:04; Start 08/01/17 at 09:00 Divalproex Sodium (Depakote Sprinkles) 750 mg HS PO Last administered on 20:16; Start 07/31/17 at 21:00 Vitamin D (Vitamin D3) 50,000 unit WEEKLY PO Last administered on 08/08/17at 09: 36; Start 08/01/17 at 09:00 Olanzapine (ZyPREXA ZYDIS) 2.5 mg PRN Q2HR PRN PO PSYCHOSIS Last administered on 08/08/17 13:38; Start 08/04/17 at 19:30 Quetiapine Fumarate (SEROquel) 12.5 mg DAILY@1300 PO Last administered on 13:09; Start 08/05/17 at 13:00; Stop 08/05/17 at 19:50; Status DC Quetiapine Fumarate (SEROquel) 25 mg BID@0900,1700 PO Last administered on 17:59; Start 08/05/17 at 09:00; Stop 08/05/17 at 19:50; Status DC Olanzapine (ZyPREXA ZYDIS) 5 mg 1X ONCE PO Last administered on 08/05/17at 10:12 ; Start 08/05/17 at 09:30; Stop 08/05/17 at 19:50; Status DC Hydralazine HCl (Apresoline) 10 mg TID PO Last administered on 08/10/17at 20:18 ; Start 08/05/17 at 21:00 Quetiapine Fumarate (SEROquel) 25 mg TID@0900,1300,1700 PO Last administered on 08/10/17at 14:54; Start 08/06/17 at 09:00 Sertraline HCl (Zoloft) 25 mg DAILYWSUP PO Last administered on 08/10/17at 18:05 ; Start 08/09/17 at 21:00 Quetiapine Fumarate (SEROquel) 25 mg TID@0900,1300,1700 PO Last administered on 08/10/17at 18:05; Start 08/10/17 at 18:00; Stop 08/11/17 at 09:01 Active Scripts Active Reported D3-50 (Cholecalciferol (Vitamin D3)) 50,000 Unit Capsule 50,000 Unit PO WEEKLY Analgesic [place] (Methyl Salicylate/Menthol) 28 Gm Oint...g. 1 Gm TP PRN QID PRN Remeron (Mirtazapine) 15 Mg Tablet 7.5 Mg PO QHS PRN Trazodone Hcl 50 Mg Tablet 50 Mg PO PRN QHS PRN Seroquel (Quetiapine Fumarate) 25 Mg Tablet 25 Mg PO BID@9,1700 Zyprexa (Olanzapine) 2.5 Mg Tablet 2.5 Mg PO PRN Q2HR PRN Xalatan (Latanoprost) 2.5 Ml Drops 1 Drop LEFTEYE QHS Pred Forte (Prednisolone Acetate) 1 Ml Drops.susp 1 Drop OS QID Metoprolol Succinate ( Xl ) (Metoprolol Succinate) 25 Mg Tab.er.24h 12.5 Mg PO DAILY Lorazepam Intensol (Lorazepam) 2 Mg/1 Ml Oral.conc 0.25 Mg PO DAILY@1400 Glycolax (Polyethylene Glycol 3350) 119 Gm Powder 17 Gm PO DAILY Dorzolamide Hcl 10 Ml Drops 1 Drop LEFTEYE BID Depakote Sprinkle (Divalproex Sodium) 125 Mg Cap.sprink 250 Mg PO HS Milk Of Magnesia (Magnesium Hydroxide) 400 Mg/5 Ml Oral.susp 2,400 Mg PO PRN QHS PRN Mag-Al Plus Xs Suspension (Mag Hydrox/Al Hydrox/Simeth) 30 Ml Oral.susp 15 Ml PO PRN AFTMEALHC PRN Depakote Sprinkle (Divalproex Sodium) 125 Mg Cap.sprink 500 Mg PO DAILY Tylenol (Acetaminophen) 325 Mg Tablet 650 Mg PO PRN Q6HRS PRN Seroquel (Quetiapine Fumarate) 25 Mg Tablet 12.5 Mg PO BID I have reviewed the current psychotropics carefully including drug interactions. Risk benefit ratio favors no change other than as noted in my dictated progress note. Diagnosis: Problems: (1) Dementia with behavioral disturbance (2) Urinary tract infection (3) Anxiety disorder (4) Impulse control disorder (5) Dementia, vascular, with depression (6) Dementia, vascular, with delusions (7) Dementia in Alzheimer's disease with depression (8) Dementia in Alzheimer's disease with delusions SHASHI CRAVEN MD August 10, 2017 20:43
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
[2017-08-11 05:41] VITALS: BP 121/48
[2017-08-11 08:27] VITALS: BP 154/86
[2017-08-11] MEDS: prednisoLONE ACETATE 1% OPHTH SUSPENSION 5ML BOTTLE. OS SCH (09:00)
[2017-08-11] MEDS: QUEtiapine 50 MG TABLET. PO SCH (09:00)
--- NOTE | 2017-08-11 09:45 | PN ---
DATE: 08/09/2017 PSYCHIATRIC PROGRESS NOTE This is a late entry for 08/09/2017, covers elements not covered in my initial note of 08/09/2017. I met with the patient in the evening. The patient slept 6-3/4 hours, more restless, slid out of her wheelchair twice. No injury noted. This was after dinner. She received Zyprexa at 6:00 p.m. REVIEW OF SYSTEMS: No CV, , pulmonary, eye, ENT system symptoms on review. Reliability is poor. Gait is unsteady, in Broda chair. MENTAL STATUS EXAM: Oriented to herself. Insight, judgment, recent and remote memory, attention, concentration, fund of knowledge poor, consistent with her diagnosis mentioned in my initial note. PLAN: Start Zoloft 25 mg a day. Continue Depakote, Seroquel along with trazodone and Remeron at current dosage. MAN April CRAVEN MD DR: MINGO/emmanuel JOB#: [id number] / [id number]
[2017-08-11] MEDS: DORZOLAMIDE 2% OPHTH SOLUTION 10ML BOTTLE. OS SCH (09:56)
[2017-08-11] MEDS: ACETAMINOPHEN 325 MG TABLET PO PRN (09:56)
[2017-08-11] MEDS: LATANOPROST 0.005% OPHTH SOLUTION 2.5ML BOTTLE. OS SCH (09:56)
[2017-08-11] MEDS: POLYETHYLENE GLYCOL 3350 17 GM PACKET. PO SCH (09:56)
[2017-08-11] MEDS: QUEtiapine 25 MG TABLET. PO SCH (09:58)
[2017-08-11] MEDS: DIVALPROEX 125 MG CAP.SPRINK PO SCH (09:58)
[2017-08-11 10:08] VITALS: BP 144/60
[2017-08-11] MEDS: METOPROLOL TART IMMED RELEASE 25 MG TABLET PO SCH (10:08)
[2017-08-11] MEDS: hydrALAZINE 10 MG TABLET PO SCH (10:08)
[2017-08-11] MEDS ORDERED: SERT25TA PO (11:13)
[2017-08-11] MEDS ORDERED: HYDR-2867 PO (11:14)
--- NOTE | 2017-08-11 20:42 | PDOC ---
Exam Note: Hiram Note: Please also refer to the separate dictated note~for this date of service dictated separately.~Patient seen individually. Discussed the patient with Nursing staff reviewed the chart.~Reviewed interim history and current functioning. Reviewed vital signs,~Labs/ Radiology~and current medications noted below. Continue current treatment with the changes noted in the dictated addendum note Assessment: Vital Signs: Vital Signs Date Time Temp Pulse Resp B/P (MAP) Pulse Ox O2 Delivery O2 Flow Rate FiO2 08/11/17 10:08 67 144/60 08/11/17 05:41 98.1 18 94 Room Air I&O Intake and Output 08/11/17 07:00 Intake Total 845 ml Balance 845 ml Intake Oral 845 ml Current Medications: Meds: Current Medications Haloperidol Lactate (Haldol) 2.5 mg 1X ONCE IM Last administered on 07/16/17at 17:15; Start 07/16/17 at 17:15; Stop 07/16/17 at 17:16; Status DC Haloperidol Lactate (Haldol) 5 mg 1X ONCE IM Last administered on 07/16/17at 18 :00; Start 07/16/17 at 18:00; Stop 07/16/17 at 18:10; Status DC Acetaminophen (Tylenol) 650 mg PRN Q6HRS PRN PO PAIN / TEMP Last administered on 08/11/17at 09:56; Start 07/16/17 at 21:15; Stop 08/11/17 at 13:21; Status DC Multi-Ingredient Ointment (Analgesic [place]) 1 william PRN QID PRN TP MUSCLE PAIN; Start 07/16/17 at 21:15; Stop 08/11/17 at 13:21; Status DC Al Hydroxide/Mg Hydroxide (Mylanta Plus Xs) 15 ml PRN AFTMEALHC PRN PO DYSPEPSIA; Start 07/16/17 at 21:15; Stop 08/11/17 at 13:21; Status DC Magnesium Hydroxide (Milk Of Magnesia) 2,400 mg PRN QHS PRN PO CONSTIPATION Last administered on 07/22/17at 21:18; Start 07/16/17 at 21:15; Stop 08/11/17 at 13:21; Status DC Acetaminophen (Tylenol) 650 mg PRN Q6HRS PRN PO PAIN / TEMP; Start 07/16/17 at 23:15; Status UNV Dorzolamide HCl (Trusopt) 1 drop BID OS Last administered on 08/11/17at 09:56; Start 07/17/17 at 09:00; Stop 08/11/17 at 13:21; Status DC Latanoprost (Xalatan) 1 drop QHS OS Last administered on 08/11/17at 09:56; Start 07/17/17 at 21:00; Stop 08/11/17 at 13:21; Status DC Al Hydroxide/Mg Hydroxide (Mylanta Plus Xs) 15 ml PRN AFTMEALHC PRN PO DYSPEPSIA; Start 07/16/17 at 23:15; Status UNV Magnesium Hydroxide (Milk Of Magnesia) 2,400 mg PRN QHS PRN PO CONSTIPATION; Start 07/16/17 at 23:15; Status UNV Metoprolol Succinate (Toprol Xl) 12.5 mg DAILY PO Last administered on at 10:37; Start 07/17/17 at 09:00; Stop 07/26/17 at 16:16; Status DC Polyethylene Glycol (miraLAX) 17 gm DAILY PO Last administered on 08/11/17at 09: 56; Start 07/17/17 at 09:00; Stop 08/11/17 at 13:21; Status DC Prednisolone Acetate (Pred Forte) 1 drop QID OS Last administered on 08/11/17at 09:00; Start 07/17/17 at 09:00; Stop 08/11/17 at 13:21; Status DC Divalproex Sodium (Depakote Sprinkles) 250 mg HS PO Last administered on at 19:25; Start 07/17/17 at 21:00; Stop 07/19/17 at 19:45; Status DC Divalproex Sodium (Depakote Sprinkles) 500 mg DAILY PO Last administered on 07/31at 07:34; Start 07/17/17 at 09:00; Stop 07/31/17 at 18:25; Status DC Lorazepam (Ativan Intensol) 0.25 mg DAILY@1400 PO Last administered on at 14:35; Start 07/17/17 at 14:00; Stop 07/18/17 at 18:16; Status DC Quetiapine Fumarate (SEROquel) 12.5 mg BID PO Last administered on 07/29/17at 08: 21; Start 07/17/17 at 09:00; Stop 07/29/17 at 09:00; Status DC Divalproex Sodium (Depakote Sprinkles) 500 mg HS PO Last administered on at 20:52; Start 07/19/17 at 21:00; Stop 07/31/17 at 18:25; Status DC Olanzapine (ZyPREXA ZYDIS) 1.25 mg PRN Q2HR PRN PO PSYCHOSIS Last administered on 07/31/17at 03:23; Start 07/20/17 at 22:45; Stop 08/04/17 at 19:21; Status DC Trazodone HCl (Desyrel) 50 mg PRN QHS PRN PO INSOMNIA, MAY REPEAT X1 Last administered on 08/10/17at 00:59; Start 07/20/17 at 22:45; Stop 08/11/17 at 13:21 ; Status DC Metoprolol Tartrate (Lopressor) 12.5 mg BID PO Last administered on 08/11/17at 10:08; Start 07/26/17 at 21:00; Stop 08/11/17 at 13:21; Status DC Quetiapine Fumarate (SEROquel) 12.5 mg 0900,1300,1700 PO Last administered on at 17:08; Start 07/29/17 at 09:00; Stop 08/04/17 at 19:21; Status DC Mirtazapine (Remeron) 7.5 mg QHS PO Last administered on 08/10/17at 20:16; Start 07/29/17 at 21:00; Stop 08/11/17 at 13:21; Status DC Divalproex Sodium (Depakote Sprinkles) 250 mg DAILY PO Last administered on at 09:58; Start 08/01/17 at 09:00; Stop 08/11/17 at 13:21; Status DC Divalproex Sodium (Depakote Sprinkles) 750 mg HS PO Last administered on at 20:16; Start 07/31/17 at 21:00; Stop 08/11/17 at 13:21; Status DC Vitamin D (Vitamin D3) 50,000 unit WEEKLY PO Last administered on 08/08/17at 09: 36; Start 08/01/17 at 09:00; Stop 08/11/17 at 13:21; Status DC Olanzapine (ZyPREXA ZYDIS) 2.5 mg PRN Q2HR PRN PO PSYCHOSIS Last administered on 08/08/17at 13:38; Start 08/04/17 at 19:30; Stop 08/11/17 at 13:21; Status DC Quetiapine Fumarate (SEROquel) 12.5 mg DAILY@1300 PO Last administered on at 13:09; Start 08/05/17 at 13:00; Stop 08/05/17 at 19:50; Status DC Quetiapine Fumarate (SEROquel) 25 mg BID@0900,1700 PO Last administered on at 17:59; Start 08/05/17 at 09:00; Stop 08/05/17 at 19:50; Status DC Olanzapine (ZyPREXA ZYDIS) 5 mg 1X ONCE PO Last administered on 08/05/17at 10:12 ; Start 08/05/17 at 09:30; Stop 08/05/17 at 19:50; Status DC Hydralazine HCl (Apresoline) 10 mg TID PO Last administered on 08/11/17at 10:08 ; Start 08/05/17 at 21:00; Stop 08/11/17 at 13:21; Status DC Quetiapine Fumarate (SEROquel) 25 mg TID@0900,1300,1700 PO Last administered on 08/11/17at 09:58; Start 08/06/17 at 09:00; Stop 08/11/17 at 13:21; Status DC Sertraline HCl (Zoloft) 25 mg DAILYWSUP PO Last administered on 08/10/17at 18:05 ; Start 08/09/17 at 21:00; Stop 08/11/17 at 13:21; Status DC Quetiapine Fumarate (SEROquel) 25 mg TID@0900,1300,1700 PO Last administered on 08/10/17at 18:05; Start 08/10/17 at 18:00; Stop 08/11/17 at 09:01; Status DC Active Scripts Active Reported Hydralazine Hcl 10 Mg Tablet 10 Mg PO TID Zoloft (Sertraline Hcl) 25 Mg Tablet 25 Mg PO DAILYWSUP Divalproex Sodium 125 Mg Cap.sprink 750 Mg PO QHS D3-50 (Cholecalciferol (Vitamin D3)) 50,000 Unit Capsule 50,000 Unit PO WEEKLY START DATE: 08/01/17 Remeron (Mirtazapine) 15 Mg Tablet 7.5 Mg PO QHS Trazodone Hcl 50 Mg Tablet 50 Mg PO PRN QHS PRN Seroquel (Quetiapine Fumarate) 25 Mg Tablet 25 Mg PO TID@0900,1300,1700 Zyprexa (Olanzapine) 2.5 Mg Tablet 2.5 Mg PO PRN Q2HR PRN NTE 15mg/24HR Xalatan (Latanoprost) 2.5 Ml Drops 1 Drop LEFTEYE QHS Pred Forte (Prednisolone Acetate) 1 Ml Drops.susp 1 Drop OS QID Metoprolol Succinate ( Xl ) (Metoprolol Succinate) 25 Mg Tab.er.24h 12.5 Mg PO DAILY Glycolax (Polyethylene Glycol 3350) 119 Gm Powder 17 Gm PO DAILY Dorzolamide Hcl 10 Ml Drops 1 Drop LEFTEYE BID Milk Of Magnesia (Magnesium Hydroxide) 400 Mg/5 Ml Oral.susp 2,400 Mg PO PRN QHS PRN Mag-Al Plus Xs Suspension (Mag Hydrox/Al Hydrox/Simeth) 30 Ml Oral.susp 15 Ml PO PRN AFTMEALHC PRN Depakote Sprinkle (Divalproex Sodium) 125 Mg Cap.sprink 250 Mg PO DAILY Tylenol (Acetaminophen) 325 Mg Tablet 650 Mg PO PRN Q6HRS PRN I have reviewed the current psychotropics carefully including drug interactions. Risk benefit ratio favors no change other than as noted in my dictated progress note. Diagnosis: Problems: (1) Dementia with behavioral disturbance (2) Urinary tract infection (3) Anxiety disorder (4) Impulse control disorder (5) Dementia, vascular, with depression (6) Dementia, vascular, with delusions (7) Dementia in Alzheimer's disease with depression (8) Dementia in Alzheimer's disease with delusions SHASHI CRAVEN MD August 11, 2017 20:42
--- NOTE | 2017-08-12 04:53 | PN ---
DATE: 08/10/2017 This is a late entry for 08/10/2017 covers elements not covered in my initial note. SUBJECTIVE: I met with the patient in the evening. The patient has been somewhat tired, sedated during the day and in the afternoon. REVIEW OF SYSTEMS: Positive for impaired ambulation and she is in a Broda chair. No CV, , pulmonary, eye, ENT system symptoms on review. Reliability poor, not very verbal as I met with her, pleasant, smiling. MENTAL STATUS EXAM: Insight, judgment, recent and remote memory, attention, concentration, fund of knowledge poor, consistent with her diagnosis mentioned in my initial note. PLAN: Continue psychotropics mentioned in my initial note. MAN April CRAVEN MD DR: MINGO/emmanuel JOB#: [id number] / [id number]
--- NOTE | 2017-08-12 12:58 | DS ---
DATE OF DISCHARGE: 08/11/2017 DISCHARGE SUMMARY/PSYCHIATRIC PROGRESS NOTE This is a late entry for date of service 08/11/2017, covers elements not covered in my initial note of 08/11/2017. REASON FOR ADMISSION: Please refer to the admission history for details. Briefly, the patient is an 86-year-old female referred to us from [facility] by her primary care physician on account of increased anxiety, agitation, being combative, impulsive, refusing cares, hitting and biting staff members. She had failed outpatient psychiatric interventions. Behaviors were deemed dangerous, out of control, referred for inpatient stabilization. SIGNIFICANT FINDINGS AND CLINICAL COURSE: Following admission, the patient was seen daily individually by myself from a psychiatric standpoint. Medical followup per Dr. Mayer/Dr Wren. She is quite confused, anxious, agitated, initially fairly quiet, but after the honeymoon phase, she was quite aggressive, disruptive. Adjustments were made in her psychotropics. She seemed to respond to a combination of Depakote Sprinkles 250 mg in the morning and 750 mg at night, Seroquel 25 mg 3 times a day, Zyprexa p.r.n., trazodone p.r.n., Remeron 7.5 mg at bedtime, Zoloft 25 mg a day. She needed a Broda chair as a therapeutic intervention to prevent her from falling given her diagnosis and the psychotropic medications she was taking. We would recommend that she continues to use the Broda chair back at the senior living post-discharge till she is deemed safe and stable and a lesser level of care prior to discharge 08/11/2017. REVIEW OF SYSTEMS: No CV, , pulmonary, eye, ENT system symptoms on review. Gait unsteady, in Broda chair. Reliability poor. MENTAL STATUS EXAM: Oriented to herself. Insight, judgment, recent and remote memory, attention, concentration, fund of knowledge poor, consistent with her diagnosis. FINAL DIAGNOSES: Major neurocognitive disorder, Alzheimer, vascular with delusion, depression, behavioral disturbance; anxiety disorder, unspecified; impulse control disorder, unspecified. Rest unchanged from admission. DISCHARGE medications: Please refer to the EMRAD. DISCHARGE INSTRUCTIONS: Outpatient psychiatric and medical followup at the senior living. MAN April CRAVEN MD DR: MINGO/emmanuel JOB#: [id number] / [id number]
== END 2017-08-11 13:21 | disposition home or self-care (01) | DRG 57 ==
LOC: ER 16:26 → GEROPSY 21:02
PROVIDERS: ADMIT Psychiatry & Neurology Psychiatry; ATTEND Psychiatry & Neurology Psychiatry
DX: G30.9 Alzheimer's disease, unspecified (principal); E46 Unspecified protein-calorie malnutrition; F01.51 Vascular dementia, unspecified severity, with behavioral disturbance; N39.0 Urinary tract infection, site not specified; F02.81 Dementia in other diseases classified elsewhere, unspecified severity, with behavioral disturbance; E66.9 Obesity, unspecified; K59.09 Other constipation; M19.90 Unspecified osteoarthritis, unspecified site; E55.9 Vitamin D deficiency, unspecified; F32.9 Major depressive disorder, single episode, unspecified; F41.9 Anxiety disorder, unspecified; F63.9 Impulse disorder, unspecified; I10 Essential (primary) hypertension; Z66 Do not resuscitate; N28.9 Disorder of kidney and ureter, unspecified; G47.00 Insomnia, unspecified; Z79.899 Other long term (current) drug therapy; Z68.23 Body mass index [BMI] 23.0-23.9, adult; Z88.1 Allergy status to other antibiotic agents
CPT/HCPCS: 36415; 70450; 71045; 80053; 80061; 80164; 81001; 82306; 82607; 83036; 83540; 83550; 83735; 84436; 84443; 84480; 85025; 86593; 93005; 96372; J1630; 99285-25